=== PATIENT | female | born 2000 | race Caucasian/White ===

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

== ENCOUNTER 2022-01-31 03:38 | Outpatient (CLI) | payer MEDICAID, SELFPAY ==
[2022-01-31 12:57] LABS: TSH (W/Ref FT4) 1.28 uIU/mL (0.52-4.13)
[2022-01-31 18:10] LABS: FSH 5.5 mIU/mL (See Note); Prolactin 7.9 ng/mL (See Note)
[2022-02-02 09:47] LABS: DHEA Sulfate 174 ug/dL (61-494)
== END 2022-01-31 03:39 | disposition home or self-care (01) ==
LOC: LBO 03:38
PROVIDERS: PCP Nurse Practitioner Family; Visit Provider Nurse Practitioner Women's Health
DX: N91.2 Amenorrhea, unspecified (principal)
CPT/HCPCS: 36415; 82627; 83001; 84146; 84443

== ENCOUNTER 2022-02-15 03:27 | Outpatient (CLI) | payer MEDICAID, SELFPAY ==
[2022-02-15 16:40] LABS: HCG Quant, Pregnancy < 1 mIU/mL (1-3)
== END 2022-02-15 03:28 | disposition home or self-care (01) ==
LOC: LBO 03:28
PROVIDERS: PCP Nurse Practitioner Family; Visit Provider Nurse Practitioner Women's Health
DX: N91.2 Amenorrhea, unspecified (principal)
CPT/HCPCS: 36415; 84702

== ENCOUNTER 2022-03-15 17:45 | Emergency (ER) | payer MEDICAID, SELFPAY ==
[2022-03-15 17:48] VITALS: PULSE 89; RESP 18; TEMP 37; O2SAT 98
--- NOTE | 2022-03-15 19:16 | ED.GENADUL_ITS ---
Discharge Plan Disposition Patient Disposition: Home Condition: Stable Discharge Details Clinical Impression: Symptoms of upper respiratory infection (URI) Primary Care Provider: Sobia Franklin ED Provider: Telma Toney Home Meds and New Rx's Prescriptions: Continued triamcinolone acetonide 0.5 % cream 1 applic topical BID Qty: 15 0RF Discharge Instructions Additional Instructions: You may give a dose of Decadron, this will help your symptoms Take ibuprofen and Tylenol for pain control This is likely viral in nature and will resolve on its own Your flu and COVID swab are negative Return earlier should you have new or worsening complaints, symptoms lasting longer than 48 hours, recommend recheck with your primary care physician Stand Alone Forms: Work Release Discharge Data Discharge Date/Time-TO BE ENTERED AT DEPARTURE: 03/15/22 19:33 Medical Decision Making Patient appears well, vital stable Rapid COVID and flu negative Work note supplied Single dose of steroid for symptom control Return precautions reviewed and patient expressed understanding Medical Records Medical records reviewed: Yes I reviewed the patient's medical records. Lab Data Lab results reviewed: Yes I reviewed the patient's lab results. Sign Out No HPI General Date/Time Provider Initiated Documentation: 03/15/22 17:50 . HPI Narrative: Patient with sore throat and runny nose which started this morning. She denies any fever but has had chills. Denies any chance of . Denies difficulty swallowing, only painful swallowing. Denies any globus sensation. Denies any chest pain or shortness of breath. Denies any rashes or lesions. Denies any additional complaints at this time. Denies stiff neck or headache. Related Data Home Medications Medication Instructions Recorded Confirmed triamcinolone acetonide 0.5 % 1 applic topical BID #15 grams 09/23/21 01/26/22 topical cream Previous Rx's Medication Instructions Recorded triamcinolone acetonide 0.5 % 1 applic topical BID #15 grams 09/23/21 topical cream Allergies Allergy/AdvReac Type Severity Reaction Status Date / Time morphine Allergy Unknown Verified 01/26/22 15:21 red (food color) Allergy Unknown Skin Rash Unverified 01/26/22 15:21 General Stated Complaint: Sorethroat NAVEEN: 4 Review of Systems All systems reviewed & are unremarkable except as noted in HPI and below PFSH All Active Problems (Updated 03/15/22 @ 19:18 by XIOMY Land) Symptoms of upper respiratory infection (URI) (Acute) Bilateral bunions (Chronic 05/24/17) Evaluateed by podiatry. Trial of inserts and f/u if pain persists. No longer wears inserts as of 07/2017. 07/25/18 Irregular menses (Chronic 09/23/14) Pediatric body mass index (BMI) of 5th percentile to less than 85th percentile for age (Chronic 02/01/17) Depression (Chronic) Contraception (Acute) Hallux valgus (acquired), left foot (Chronic) S/P Eulalio osteotomy: 12/30/2019 Menometrorrhagia (Acute) Left lower quadrant pain (Acute) Surgical History Hx of wisdom tooth extraction S/P laparoscopy Operative laparoscopy with left ovarian cystotomy Family History Mother Mental disorder Depression Father No problems noted. Grandparent No problems noted. Sibling Mental disorder Depression and anxiety Asthma Social History Smoking/Tobacco Use Status: Current-Occasional Tobacco Type: e-cigarettes Second Hand Exposure: No Smoking risk assessment performed?: Yes Alcohol Intake: never Details: Smokes Bautista has been since Apr, is a stress/suicidal thought reliever Drug use: Never Substance use type: does not use Adopted: No Foster care: No Education Level: high school Details: [employer]th [employer] Pets and animals: Yes Pets and animals: dog(s) Current gender identity: female What type of physical activity do you participate in: other Seatbelt use: always Helmet use: Yes Fire extinguisher in home: Yes Carbon monox detector in home: Yes Firearms in home: No Do you feel safe at home: Yes Do you feel safe in your relationship?: Yes Female Reproductive History Menstrual control method: none History History 0 Para Hx # Term Pregnancies Multiple births Hx # Pregnancies Ectopic pregnancies AB induced Hx Number of Living Children AB spontaneous Exam Const General: cooperative, comfortable and no acute distress HENMT Other: Uvula midline, oropharynx patent, slight erythema to posterior oropharynx, no obvious abscess Eyes Sclera: sclerae normal Neck Other: No stridor or difficulty swallowing Resp Effort & Inspection: normal respiratory effort Cardio Rate: regular rate GI Inspection: normal to inspection Skin General skin exam: no rashes or lesions noted Neuro General: patient alert and patient oriented x3 Course Vital Signs Vital signs: Vital Signs Temperature 37.0 C 03/15/22 17:48 Pulse 89 03/15/22 17:48 Respiratory Rate 18 03/15/22 17:48 Pulse Oximetry 98 03/15/22 17:48 Temperature 37.0 C 03/15/22 17:48 Temperature Source Tympanic 03/15/22 17:48 Pulse 89 03/15/22 17:48 Respiratory Rate 18 03/15/22 17:48 Respiratory Effort 03/15/22 17:51 Pulse Oximetry 98 03/15/22 17:48 Oxygen Delivery Method Room Air 03/15/22 17:48 Oxygen Flow Rate 0 03/15/22 17:48 Pain Level 5 03/15/22 17:48
[2022-03-15] MEDS: Dexamethasone 4 MG TAB PO (19:31)
== END 2022-03-15 19:33 | disposition home or self-care (01) ==
PROVIDERS: Emergency Provider Physician Assistant; PCP Nurse Practitioner Family
DX: J06.9 Acute upper respiratory infection, unspecified (principal)
CPT/HCPCS: 99283; J8540

== ENCOUNTER 2022-06-26 19:00 | Emergency (ER) | payer MEDICAID, SELFPAY ==
[2022-06-26 19:03] VITALS: BP 129/91; PULSE 98; RESP 18; TEMP 37.1; O2SAT 96
--- NOTE | 2022-06-26 19:36 | ED.GENADUL_ITS ---
Discharge Plan Disposition Patient Disposition: Home Discharge Details Clinical Impression: Left knee pain Primary Care Provider: Sobia Franklin ED Provider: Telma Toney Home Meds and New Rx's Prescriptions: Continued triamcinolone acetonide 0.5 % cream 1 applic topical BID Qty: 15 0RF Discharge Instructions Instructions: Knee Pain (ED) Additional Instructions: Maxime wrap for compression, you may also purchase an [id number] compressive knee brace Crutches with ambulation for the next several days to allow your knee time to heal Ibuprofen 600 mg every 8 hours with food Take Tylenol as needed for breakthrough pain Follow-up with primary care physician in the next 1 to 2 weeks for reassessment and return earlier should you have new or worsening complaints Stand Alone Forms: Work Release Medical Decision Making Patient presents with left knee pain, x-ray does not show evidence of acute abnormality per radiology interpretation and my review Given an Maxime wrap and crutches Return precautions reviewed and patient expressed understanding, neurovascularly intact, no tenderness to ankle or calf, no visible signs of trauma Medical Records Medical records reviewed: Yes I reviewed the patient's medical records. HPI General Date/Time Provider Initiated Documentation: 06/26/22 19:00 . HPI Narrative: This 22-year-old female presents with report of left knee pain. She had onset of left knee pain approximately week ago and her sister was doing a burnout yesterday and she accidentally hit her knee on the dashboard. She denies any additional injuries. Denies chance of . Is able to ambulate with discomfort per patient. Related Data Home Medications Medication Instructions Recorded Confirmed triamcinolone acetonide 0.5 % 1 applic topical BID #15 grams 09/23/21 01/26/22 topical cream Previous Rx's Medication Instructions Recorded triamcinolone acetonide 0.5 % 1 applic topical BID #15 grams 09/23/21 topical cream Allergies Allergy/AdvReac Type Severity Reaction Status Date / Time morphine Allergy Unknown Verified 01/26/22 15:21 red (food color) Allergy Unknown Skin Rash Unverified 01/26/22 15:21 General Stated Complaint: Orthopedic NAVEEN: 4 PFSH All Active Problems (Updated 06/26/22 @ 20:09 by XIOMY Land) Left knee pain (Acute) Bilateral bunions (Chronic 05/24/17) Evaluateed by podiatry. Trial of inserts and f/u if pain persists. No longer wears inserts as of 07/2017. 07/25/18 Irregular menses (Chronic 09/23/14) Pediatric body mass index (BMI) of 5th percentile to less than 85th percentile for age (Chronic 02/01/17) Depression (Chronic) Contraception (Acute) Hallux valgus (acquired), left foot (Chronic) S/P Eulalio osteotomy: 12/30/2019 Menometrorrhagia (Acute) Left lower quadrant pain (Acute) Surgical History Hx of wisdom tooth extraction S/P laparoscopy Operative laparoscopy with left ovarian cystotomy Family History Mother Mental disorder Depression Father No problems noted. Grandparent No problems noted. Sibling Mental disorder Depression and anxiety Asthma Social History Smoking/Tobacco Use Status: Current-Occasional Tobacco Type: e-cigarettes Second Hand Exposure: No Smoking risk assessment performed?: Yes Alcohol Intake: never Details: Smokejacques Baum has been since Apr, is a stress/suicidal thought reliever Drug use: Never Substance use type: does not use Adopted: No Foster care: No Education Level: high school Details: 10th grade, [employer] Pets and animals: Yes Pets and animals: dog(s) Current gender identity: female What type of physical activity do you participate in: other Seatbelt use: always Helmet use: Yes Fire extinguisher in home: Yes Carbon monox detector in home: Yes Firearms in home: No Do you feel safe at home: Yes Do you feel safe in your relationship?: Yes Female Reproductive History Menstrual control method: none History History 0 Para Hx # Term Pregnancies Multiple births Hx # Pregnancies Ectopic pregnancies AB induced Hx Number of Living Children AB spontaneous Exam Const General: cooperative, comfortable and no acute distress Extrem Other: Left knee with tenderness, no swelling, range of motion intact Course Vital Signs Vital signs: Vital Signs Temperature 37.1 C 06/26/22 19:03 Pulse 98 H 06/26/22 19:03 Respiratory Rate 18 06/26/22 19:03 Blood Pressure 129/91 H 06/26/22 19:03 Pulse Oximetry 96 06/26/22 19:03 Temperature 37.1 C 06/26/22 19:03 Temperature Source Oral 06/26/22 19:03 Pulse 98 H 06/26/22 19:03 Respiratory Rate 18 06/26/22 19:03 Blood Pressure 129/91 H 06/26/22 19:03 Blood Pressure Position Sitting 06/26/22 19:03 Pulse Oximetry 96 06/26/22 19:03 Oxygen Delivery Method Room Air 06/26/22 19:03 Oxygen Flow Rate 0 06/26/22 19:03 Pain Level 6 06/26/22 19:03
--- NOTE | 2022-06-26 19:50 | DI.RAD_ITS ---
Exam(s) XR KNEE LT 3V AP,LAT,DARIO EXAM: XR KNEE LT 3V AP,LAT,DARIO CLINICAL HISTORY: left knee injury, diffuse pain. TECHNIQUE: 2D digital imaging was performed of the left knee. Three images were obtained. AP, late ral and PA tunnel views were obtained. COMPARISON: No exams were available for comparison FINDINGS: BONES: No acute fracture is present. No bony destructive lesion is seen. JOINTS: The knee is normally aligned. No joint effusion is seen. SOFT TISSUE: Normal. IMPRESSION: Normal radiographs of the left knee. DATA REPOSITORY: RADIATION DOSE DELIVERED:
--- NOTE | 2022-06-26 20:16 | DI.VRAD_ITS ---
PROCEDURE INFORMATION: Exam: XR Left Knee Exam date and time: 06/26/2022 7:48 PM Age: 22 years old Clinical indication: Patient HX: Diffuse left knee pain TECHNIQUE: Imaging protocol: Radiologic exam of the left knee. Views: 3 views. COMPARISON: CR XR FOOT LT COMPLETE 02/11/2020 9:46 AM FINDINGS: Bones/joints: Bone island in the proximal tibia. No acute fracture or dislocation Soft tissues: Normal. IMPRESSION: No acute findings. Dictated and Authenticated by: Mauro Marcano MD. Ordering:CLEMENTINA Hollis MD
--- NOTE | 2022-06-26 20:19 | NUR.NOTE ---
Referral to Care Management to establish PCP routinely.Nursing Note:
[2022-06-26 20:20] VITALS: PULSE 85; RESP 18; O2SAT 96
== END 2022-06-26 20:20 | disposition home or self-care (01) ==
PROVIDERS: Emergency Provider Physician Assistant; PCP Nurse Practitioner Family
DX: M25.562 Pain in left knee (principal); G89.11 Acute pain due to trauma; W22.03XA Walked into furniture, initial encounter
CPT/HCPCS: 73562; 99283

== ENCOUNTER 2022-07-05 17:41 | Outpatient (REF) | payer MEDICAID, SELFPAY ==
[2022-07-07 00:01] LABS: COVID-19 RT-PCR UVMMC Result Negative (Negative)
== END 2022-07-05 17:42 | disposition home or self-care (01) ==
LOC: LBN 17:41
PROVIDERS: PCP Nurse Practitioner Family; Visit Provider Nurse Practitioner Family
DX: J02.9 Acute pharyngitis, unspecified (principal); Z20.822 Contact with and (suspected) exposure to COVID-19
CPT/HCPCS: U0003; 87081

== ENCOUNTER 2022-07-12 20:03 | Emergency (ER) | payer MEDICAID, SELFPAY ==
[2022-07-12 20:09] VITALS: BP 125/82; PULSE 93; TEMP 37.1; O2SAT 99
--- NOTE | 2022-07-12 20:24 | W.ED.GENAD ---
Discharge Plan Disposition Patient Disposition: Home Condition: Stable Discharge Details Clinical Impression: Sinusitis, Upper respiratory infection with cough and congestion Primary Care Provider: Sobia Franklin ED Provider: Cheri Aguilar Home Meds and New Rx's Prescriptions: New amoxicillin-pot clavulanate 875-125 mg tablet 1 tab PO BID 10 Days Qty: 20 0RF Continued triamcinolone acetonide 0.5 % cream 1 applic topical BID Qty: 15 0RF Discharge Instructions Instructions: Sinusitis (ED), Upper Respiratory Infection (ED) Additional Instructions: Your rapid strep, COVID, influenza and RSV tests today are negative. Your symptoms still may be due to a viral illness but considering the long duration of your symptoms and your continued vaping, you may have progressed to a bacterial sinus infection. A prescription for the antibiotic Augmentin has been sent electronically to your pharmacy to take as directed until finished. Drink plenty of fluids and get plenty of rest. Alternate tylenol and motrin as needed and directed for pain. Follow-up with your primary care doctor in 1 week. Return to the emergency department with any worsening or new concerning symptoms. Stand Alone Forms: Work Release Discharge Data Discharge Date/Time-TO BE ENTERED AT DEPARTURE: 07/12/22 21:56 Discharge Physician: Cheri Aguilar Medical Decision Making 2014 -- 22-year-old female with a history of depression presents for 10 days of nasal congestion, rhinorrhea, sore throat, cough with green sputum with report of fever today at 102. Denies shortness of breath. Vitals within normal limits. Patient appears slightly uncomfortable but nontoxic. TMs are dull and erythematous bilaterally with no otic discharge. Posterior oropharynx erythematous with faint white exudates but no peritonsillar abscess. No sinus tenderness. She has scattered inspiratory wheezing. As her oxygen saturation is 100% with normal respiratory rate and no complaint of shortness of breath, do not see an indication for neb treatment or chest x-ray at this time. Differential diagnosis includes viral URI with cough, influenza, COVID, RSV or less likely strep throat. We will obtain a rapid strep, FLUVID, urine test and give a dose of ibuprofen and Tylenol and reassess. Patient states she would like to wait for results. Urine test negative. 0 --rapid strep negative. FLUVID negative. In the setting of 10 days of symptoms with fever, nasal congestion and productive cough, will cover with antibiotics for possible sinus infection. She was given 1 dose of Augmentin here, 2 tabs to go and a prescription sent electronically to her pharmacy. Advised on the importance of fluids, rest and alternating Tylenol and Motrin. Advised to follow up with the primary care doctor for re-evaluation. Usual and customary return precautions given prior to discharge. Medical Records Medical records reviewed: Yes I reviewed the patient's medical records. Lab Data Lab results reviewed: Yes I reviewed the patient's lab results. Labs: Laboratory Tests Range/Units 07/12/22 20:20 COVID-19 Source Nasopharynx SARS-CoV-2 (PCR) (Negative) Negative Influenza Type A (PCR) (Negative) Negative Influenza Type B (PCR) (Negative) Negative RSV (PCR) (Negative) Negative HPI General Mode of arrival: ambulatory. Date/Time Provider Initiated Documentation: 07/12/22 20:14. Limitations to Documentation: no limitations. Information obtained by: patient. HPI Narrative: Patient is a 22-year-old female with history of depression who presents for 10 days of runny nose, nasal congestion, sore throat, cough with green sputum, headache, fever and chills. Patient states she was taking Motrin and Tylenol last week but states it was not helping so stopped taking it. Patient has also taken NyQuil without any relief. She states all the symptoms are bothering her and cannot pinpoint one symptom the most. She states she had a fever today of 102 and did not take any medication for it. She denies any chest pain, shortness of breath, abdominal pain, vomiting or diarrhea. She states she was seen at the urgent care last week for symptoms and had a negative flu, COVID and strep test. Related Data Home Medications Medication Instructions Recorded Confirmed triamcinolone acetonide 0.5 % 1 applic topical BID #15 grams 09/23/21 01/26/22 topical cream amoxicillin 875 mg-potassium 1 tab PO BID 10 days #20 tabs 07/12/22 clavulanate 125 mg tablet Previous Rx's Medication Instructions Recorded triamcinolone acetonide 0.5 % 1 applic topical BID #15 grams 09/23/21 topical cream amoxicillin 875 mg-potassium 1 tab PO BID 10 days #20 tabs 07/12/22 clavulanate 125 mg tablet Allergies Allergy/AdvReac Type Severity Reaction Status Date / Time morphine Allergy Unknown Verified 01/26/22 15:21 red (food color) Allergy Unknown Skin Rash Unverified 01/26/22 15:21 General Stated Complaint: RespSymp NAVENE: 3 Review of Systems All systems reviewed & are unremarkable except as noted in HPI and below Constitutional Constitutional: Reports as per HPI, Reports chills, Reports fever(s) and Reports headache(s) Eyes Eyes: Denies blurry vision ENT Ears, Nose, Mouth, and Throat: Denies dizziness, Reports headache(s), Reports nasal congestion, Reports nasal discharge, Reports sore throat and Denies throat swelling Cardiovascular Cardiovascular: Denies chest pain and Denies dyspnea Respiratory Respiratory: Reports cough and Denies dyspnea Gastrointestinal Gastrointestinal: Denies abdominal pain, Denies diarrhea and Denies vomiting Genitourinary Genitourinary: Denies hematuria and Denies dysuria Musculoskeletal Musculoskeletal: Denies back pain and Denies numbness Integumentary/Breasts Skin/Breast: Denies lesions and Denies rash Neurologic Neurologic: Denies dizziness, Reports headache(s), Denies localized weakness and Denies numbness Allergic/Immunologic Allergic/Immunologic: Denies throat swelling PFSH All Active Problems (Updated 07/12/22 @ 21:30 by Cheri Aguilar DO) Sinusitis (Acute) Upper respiratory infection with cough and congestion (Acute) Left knee pain (Acute) Bilateral bunions (Chronic 05/24/17) Evaluateed by podiatry. Trial of inserts and f/u if pain persists. No longer wears inserts as of 07/2017. 07/25/18 Irregular menses (Chronic 09/23/14) Pediatric body mass index (BMI) of 5th percentile to less than 85th percentile for age (Chronic 02/01/17) Contraception (Acute) Hallux valgus (acquired), left foot (Chronic) S/P Eulalio osteotomy: 12/30/2019 Menometrorrhagia (Acute) Left lower quadrant pain (Acute) Medical History (Updated 07/12/22 @ 21:30 by Cheri Aguilar DO) Depression Surgical History (Updated 07/12/22 @ 20:27 by Cheri Aguilar DO) History of bunionectomy Hx of wisdom tooth extraction S/P laparoscopy Operative laparoscopy with left ovarian cystotomy Family History Mother Mental disorder Depression Father No problems noted. Grandparent No problems noted. Sibling Mental disorder Depression and anxiety Asthma Social History Smoking/Tobacco Use Status: Current-Occasional Tobacco Type: e-cigarettes Second Hand Exposure: No Smoking risk assessment performed?: Yes Alcohol Intake: never Details: Smokejacques Baum has been since Apr, is a stress/suicidal thought reliever Drug use: Never Substance use type: does not use Adopted: No Foster care: No Education Level: high school Details: 10th grade, [employer] Pets and animals: Yes Pets and animals: dog(s) Current gender identity: female What type of physical activity do you participate in: other Seatbelt use: always Helmet use: Yes Fire extinguisher in home: Yes Carbon monox detector in home: Yes Firearms in home: No Do you feel safe at home: Yes Do you feel safe in your relationship?: Yes Female Reproductive History Menstrual control method: none History History 0 Para Hx # Term Pregnancies Multiple births Hx # Pregnancies Ectopic pregnancies AB induced Hx Number of Living Children AB spontaneous Exam Const General: cooperative and no acute distress Orientation: alert, awake and oriented x3 HENMT Head: normal to inspection Ears: hearing grossly normal bilaterally, external ears normal and TM abnormal dull bilaterally and erythematous bilaterally General nose exam: external nose normal Face and sinus: normal facial exam and no sinus tenderness Mouth: oral mucosae normal Throat: uvula midline, no peritonsillar masses and posterior oropharynx abnormal erythema and exudates (faint white) Eyes General: appearance normal, both eyes and all related structures Pupils: PERRL EOM: EOM intact bilaterally Neck Neck: normal visual inspection and No submandibular swelling Lymphatic: no lymphadenopathy noted Chest Chest: normal inspection of the chest and no tenderness Resp Effort & Inspection: normal respiratory effort and able to speak in complete sentences Auscultation: wheezes scattered wheezes Cardio Rate: regular rate Rhythm: regular rhythm GI Inspection: normal to inspection Palpation: soft, not firm, not rigid and nontender Auscultation: hypoactive bowel sounds Back/Spine/Pelvis Thoracic/Lumbar Spine: thoracic and lumbar spine normal to inspection Pelvis: no pain with anterior-posterior compression Skin General skin exam: no rashes or lesions noted Neuro General: patient alert, patient awake and patient oriented x3 Cognition: normal cognition Speech: speech normal Motor: muscle tone normal throughout Sensory Exam: no sensory deficits noted Extrem General: normal to inspection, full ROM, capillary refill normal, no calf tenderness bilaterally and no edema Psych Appearance: grossly normal Mental Status: mental status grossly normal Speech and Movement: speech and movement normal Affect: normal affect Course Vital Signs Vital signs: Vital Signs Temperature 98.7 F 07/12/22 20:09 Pulse 93 H 07/12/22 20:09 Blood Pressure 125/82 07/12/22 20:09 Pulse Oximetry 99 07/12/22 20:09 Temperature 98.7 F 07/12/22 20:09 Temperature Source Oral 07/12/22 20:09 Pulse 93 H 07/12/22 20:09 Respiratory Effort Normal, Non-Labored 07/12/22 20:14 Blood Pressure 125/82 07/12/22 20:09 Pulse Oximetry 99 07/12/22 20:09 Oxygen Delivery Method Room Air 07/12/22 20:09 Oxygen Flow Rate 0 07/12/22 20:09 Pain Level 0 07/12/22 20:09 Comment patient denies SOB or chest pressure 07/12/22 20:09
[2022-07-12] MEDS: Ibuprofen 600 MG TAB PO (20:32)
[2022-07-12] MEDS: Acetaminophen 500 MG TAB 1000 MG PO (20:32)
[2022-07-12 21:16] LABS: COVID-19 PCR Negative (Negative); Influenza A PCR Negative (Negative); Influenza B PCR Negative (Negative); RSV PCR Negative (Negative)
[2022-07-12 21:17] LABS: Source Nasopharynx
[2022-07-12] MEDS: Amoxicillin 875/Clav. 125 TAB PO (21:51)
== END 2022-07-12 21:56 | disposition home or self-care (01) ==
PROVIDERS: Emergency Provider Physician Assistant; PCP Nurse Practitioner Family
DX: J32.9 Chronic sinusitis, unspecified (principal); J06.9 Acute upper respiratory infection, unspecified; F17.290 Nicotine dependence, other tobacco product, uncomplicated; Z20.822 Contact with and (suspected) exposure to COVID-19
CPT/HCPCS: 81025; 87637; 87880; 99283; 99284

== ENCOUNTER 2022-11-09 19:40 | Emergency (ER) | payer MEDICAID, SELFPAY ==
[2022-11-09 19:42] VITALS: BP 122/84; PULSE 87; RESP 15; TEMP 36.6; O2SAT 98
--- NOTE | 2022-11-09 22:14 | ED.GENADUL_ITS ---
Discharge Plan Disposition Patient Disposition: Home Condition: Stable Discharge Details Clinical Impression: Burn of second degree of lip(s), initial encounter Primary Care Provider: None,None ED Provider: Renee Jimenez Home Meds and New Rx's Prescriptions: No Action ondansetron 4 mg tablet,disintegrating 4 mg PO Q8H PRN PRN (Reason: nausea and vomiting) Qty: 8 0RF Patient Comments: finished this med. triamcinolone acetonide 0.5 % cream 1 applic topical BID Qty: 15 0RF Patient Comments: Finished this med. Discharge Instructions Instructions: Lidocaine (On the skin), Second-Degree Burn (ED) Additional Instructions: Please wear sunscreen or Chapstick with sunscreen in it. Apply bacitracin once a day and lidocaine once a day as needed. The blisters may start to drain. Do not try to pop the blisters. Keep clean and dry. Please be seen sooner by her PCP if any blisters develop anywhere else. Please take Tylenol or Ibuprofen with food every 4-6 hours as needed for pain and swelling. Follow up with primary care provider in 3-5 days. Return to ED sooner if any worsening or concerns. Increase oral fluids. Stand Alone Forms: Work Release Medical Decision Making 22-year-old female presents to the ER with a chief complaint of blisters to her upper and lower lips which began approximately 4 days ago after getting a sunburn. She does complain of pain. She has no blisters or swelling intraorally. She is speaking in full sentences no other associated symptoms or complaints no other rash or lesions anywhere else. Findings are consistent with second-degree burn to the upper and lower lips. No drainage noted. 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 She verbalized understanding. We will place bacitracin on to her lips. I did instruct her to also put some Orajel on, after sun care and stay out of the sun for the next few days. This text was generated using [employer] system, please disregard any oddities of phrase or misspellings. HPI General Mode of arrival: ambulatory . Date/Time Provider Initiated Documentation: 11/09/22 20:00 . Limitations to Documentation: no limitations . Information obtained by: patient, RN notes reviewed and old records reviewed . Related Data Home Medications Medication Instructions Recorded Confirmed triamcinolone acetonide 0.5 % 1 applic topical BID #15 grams 09/23/21 11/09/22 topical cream ondansetron 4 mg disintegrating 4 mg PO Q8H PRN PRN nausea and 07/13/22 11/09/22 tablet vomiting #8 tabs Previous Rx's Medication Instructions Recorded triamcinolone acetonide 0.5 % 1 applic topical BID #15 grams 09/23/21 topical cream ondansetron 4 mg disintegrating 4 mg PO Q8H PRN PRN nausea and 07/13/22 tablet vomiting #8 tabs Allergies Allergy/AdvReac Type Severity Reaction Status Date / Time morphine Allergy Unknown Verified 11/09/22 19:46 red (food color) Allergy Unknown Skin Rash Unverified 11/09/22 19:46 General Stated Complaint: RashLesion NAVEEN: 4 Review of Systems All systems reviewed & are unremarkable except as noted in HPI and below Constitutional Constitutional: Denies headache(s) ENT Ears, Nose, Mouth, and Throat: Denies headache(s), Denies mouth lesions, Denies nasal congestion, Denies nasal discharge, Denies nose pain, Denies sore throat, Denies throat swelling and Denies tongue swelling Integumentary/Breasts Skin/Breast: Reports as per HPI, Denies new lesions (None to feet hands or genitals), Reports skin pain, Reports skin swelling and Reports sores (Blisters upper vermilion border of lip and lower lip.) Neurologic Neurologic: Denies headache(s) Allergic/Immunologic Allergic/Immunologic: Denies throat swelling and Denies tongue swelling PFSH All Active Problems (Updated 11/09/22 @ 22:17 by Renee Jimenez NP) Burn of second degree of lip(s), initial encounter (Acute) Bilateral bunions (Chronic 05/24/17) Evaluateed by podiatry. Trial of inserts and f/u if pain persists. No longer wears inserts as of 07/2017. 07/25/18 Irregular menses (Chronic 09/23/14) Pediatric body mass index (BMI) of 5th percentile to less than 85th percentile for age (Chronic 02/01/17) Contraception (Acute) Hallux valgus (acquired), left foot (Chronic) S/P Eulalio osteotomy: 12/30/2019 Menometrorrhagia (Acute) Left lower quadrant pain (Acute) Medical History (Updated 11/09/22 @ 22:17 by Renee Jimenez NP) Depression Surgical History (Updated 07/12/22 @ 20:27 by Cheri Aguilar DO) History of bunionectomy Hx of wisdom tooth extraction S/P laparoscopy Operative laparoscopy with left ovarian cystotomy Family History Mother Mental disorder Depression Father No problems noted. Grandparent No problems noted. Sibling Mental disorder Depression and anxiety Asthma Social History Smoking/Tobacco Use Status: Current-Occasional Tobacco Type: e-cigarettes Second Hand Exposure: No Smoking risk assessment performed?: Yes Alcohol Intake: never Details: Smokejacques Baum has been since Apr, is a stress/suicidal thought reliever Drug use: Never Substance use type: does not use Adopted: No Foster care: No Education Level: high school Details: 10th grade, [employer] Pets and animals: Yes Pets and animals: dog(s) Current gender identity: female What type of physical activity do you participate in: other Seatbelt use: always Helmet use: Yes Fire extinguisher in home: Yes Carbon monox detector in home: Yes Firearms in home: No Do you feel safe at home: Yes Do you feel safe in your relationship?: Yes Female Reproductive History Menstrual control method: none History History 0 Para Hx # Term Pregnancies Multiple births Hx # Pregnancies Ectopic pregnancies AB induced Hx Number of Living Children AB spontaneous Exam HENMT Head: normocephalic and atraumatic General nose exam: external nose normal, nares normal and nasal mucous membranes and turbinates normal Nose image: 1. Multiple flesh-colored vesicles, surrounding erythema. Tender 2. 2 flesh-colored vesicles, surrounding erythema tender. Face and sinus: normal facial exam and erythema bilaterally (Cheeks) Mouth: no drooling, lip abnormal, No mouth trauma, no muffled voice and normal oral mucosae Teeth and gingiva: dentition normal and gingiva normal Throat: posterior oropharynx normal and tonsils normal Skin General skin exam: no rashes or lesions noted Lesions: no lesions Rashes: no rashes Course Vital Signs Vital signs: Vital Signs Temperature 36.6 C 11/09/22 19:42 Pulse 87 11/09/22 19:42 Respiratory Rate 15 11/09/22 19:42 Blood Pressure 122/84 11/09/22 19:42 Pulse Oximetry 98 11/09/22 19:42 Temperature 36.6 C 11/09/22 19:42 Temperature Source Oral 11/09/22 19:42 Pulse 87 11/09/22 19:42 Respiratory Rate 15 11/09/22 19:42 Blood Pressure 122/84 11/09/22 19:42 Blood Pressure Position Sitting 11/09/22 19:42 Pulse Oximetry 98 11/09/22 19:42 Oxygen Delivery Method Room Air 11/09/22 19:42 Oxygen Flow Rate 0 11/09/22 19:42 Pain Level 5 11/09/22 19:42
[2022-11-09] MEDS: Bacitracin 1 PACKET TP (22:24)
== END 2022-11-09 22:36 | disposition home or self-care (01) ==
PROVIDERS: Emergency Provider Registered Nurse Emergency
DX: L55.1 Sunburn of second degree (principal)
CPT/HCPCS: 99283

== ENCOUNTER 2022-11-15 13:46 | Outpatient (REF) | payer MEDICAID, SELFPAY ==
[2022-11-16 13:51] LABS: Chlamydia Result Negative (Negative); GC Result Negative (Negative)
== END 2022-11-15 13:47 | disposition home or self-care (01) ==
LOC: LBN 13:46
PROVIDERS: Visit Provider Nurse Practitioner Women's Health
DX: Z11.3 Encounter for screening for infections with a predominantly sexual mode of transmission (principal)
CPT/HCPCS: 87491; 87591

== ENCOUNTER 2022-12-07 18:40 | Outpatient (REF) | payer MEDICAID, SELFPAY ==
[2022-12-07 17:31] LABS: C Diff PCR Negative (Negative)
[2022-12-09 00:37] LABS: Campylobacter PCR Negative (Negative); Salmonella PCR Negative (Negative); Shiga Toxin PCR Negative (Negative); Shigella/Enteroinvasive Ecoli Negative (Negative)
== END 2022-12-07 18:41 | disposition home or self-care (01) ==
LOC: LBN 18:40
PROVIDERS: Visit Provider Physician Assistant Medical
DX: R19.7 Diarrhea, unspecified (principal)
CPT/HCPCS: 87329; 87493; 87505; 87177

== ENCOUNTER 2023-03-29 09:51 | Outpatient (REF) | payer MEDICAID, SELFPAY ==
[2023-03-30 12:42] LABS: Chlamydia Result Negative (Negative); GC Result Negative (Negative)
== END 2023-03-29 09:52 | disposition home or self-care (01) ==
LOC: LBN 09:51
PROVIDERS: Visit Provider Advanced Practice Midwife
DX: Z11.3 Encounter for screening for infections with a predominantly sexual mode of transmission (principal)
CPT/HCPCS: 87491; 87591

== ENCOUNTER 2023-05-31 18:03 | Outpatient (REF) | payer MEDICAID, SELFPAY ==
[2023-05-31 13:57] LABS: Source Nasal/Nares
[2023-05-31 14:30] LABS: COVID-19 PCR Negative (Negative)
--- OUTSIDE RECORDS SUMMARY | 2023-05-31 18:05 | XMS_ITS | Continuity of Care Document ---
Author Name Unknown Organization [facility] Address [address] [place] [address] Encounter [facility] FIN NBR [id number] Date(s): 07/03/22 - 07/03/22 [facility] [address] [place], [place] [address] Encounter Diagnosis Knee pain(Discharge Diagnosis) - 07/03/22 Discharge Disposition: Home or Self Care Attending Physician: Maria C Eldridge MD Admitting Physician: Maria C Eldridge MD Allergies, Adverse Reactions, Alerts Substance Reaction Severity Status morphine Anger Mild Active Red Dye Throat swelling Hives Severe Active Assessment and Plan Diagnostic Tests Pending * Babesia,HGE,HME,Lyme by PCR LC 07/03/22 Mental Status 07/03/22 Eye Opening Response Renetta Spontaneous ly Best Verbal Response [place] Oriented Best Motor Response Renetta Obeys comman ds Renetta Coma Score 15 Vital Signs Most recent to oldest [Reference Range]: 1 Temperature Temporal Artery [36-38 Deg C ] 36.9 Deg C (07/03/22 9:10 PM) Peripheral Pulse Rate [60-100 bpm] 70 bp m (07/03/22 9:10 PM) Blood Pressure [90-140/60-90 mmHg] 114/7 6mmHg (07/03/22 9:10 PM) Weight Dosing 64.41 kg (07/03/22 9:29 PM) Weight Estimated 64.41 kg (07/03/22 9:10 PM) Height/Length Dosing 165.560 cm (07/03/22 9:29 PM) Height/Length Estimated 165.560 cm (07/03/22 9:10 PM) Social History Social History Type Response Tobacco Never tobacco user T obacco Use:. Sex Hospital Discharge Instructions Patient Education 07/03/2022 20:46:38 Acute Knee Pain, Adult Acute Knee Pain, Adult Acute knee pain is sudden and may be caused by damage, swelling, or irritation of the muscles and tissues that support the knee. Pain may result from: ??? A fall. ??? An injury to the knee from twisting motions. ??? A hit to the knee. ??? Infection. Acute knee pain may go away on its own with time and rest. If it does not, your health care provider may order tests to find the cause of the pain. These may include: ??? Imaging tests, such as an X-ray, MRI, CT scan, or ultrasound. ??? Joint aspiration. In this test, fluid is removed from the knee and evaluated. ??? Arthroscopy. In this test, a lighted tube is inserted into the knee and an image is projected onto a TV screen. ??? Biopsy. In this test, a sample of tissue is removed from the body and studied under a microscope. Follow these instructions at home: If you have a knee sleeve or brace: ??? Wear the knee sleeve or brace as told by your health care provider. Remove it only as told by your health care provider. ??? Loosen it if your toes tingle, become numb, or turn cold and blue. ??? Keep it clean. ??? If the knee sleeve or brace is not waterproof: ??? Do not let it get wet. ??? Cover it with a watertight covering when you take a bath or shower. Activity ??? Rest your knee. ??? Do not do things that cause pain or make pain worse. ??? Avoid high-impact activities or exercises, such as running, jumping rope, or doing jumping jacks. ??? Work with a physical therapist to make a safe exercise program, as recommended by your health care provider. Do exercises as told by your physical therapist. Managing pain, stiffness, and swelling ??? If directed, put ice on the affected knee. To do this: ??? If you have a removable knee sleeve or brace, remove it as told by your health care provider. ??? Put ice in a plastic bag. ??? Place a towel between your skin and the bag. ??? Leave the ice on for 20 minutes, 2???3 times a day. ??? Remove the ice if your skin turns bright red. This is very important. If you cannot feel pain, heat, or cold, you have a greater risk of damage to the area. ??? If directed, use an elastic bandage to put pressure (compression) on your injured knee. This may control swelling, give support, and help with discomfort. ??? Raise (elevate) your knee above the level of your heart while you are sitting or lying down. ??? Sleep with a pillow under your knee. General instructions ??? Take lpyk-rqu-hizretf and prescription medicines only as told by your health care provider. ??? Do not use any products that contain nicotine or tobacco, such as cigarettes, e-cigarettes, andchewing tobacco. If you need help quitting, ask your health care provider. ??? If you are overweight, work with your health care provider and a dietitian to set a weight-lossgoal that is healthy and reasonable for you. Extra weight can put pressure on your knee. ??? Pay attention to any changes in your symptoms. ??? Keep all follow-up visits. This is important. Contact a health care provider if: ??? Your knee pain continues, changes, or gets worse. ??? You have a fever along with knee pain. ??? Your knee feels warm to the touch or is red. ??? Your knee parul or locks up. Get help right away if: ??? Your knee swells, and the swelling becomes worse. ??? You cannot move your knee. ??? You have severe pain in your knee that cannot be managed with pain medicine. Summary ??? Acute knee pain can be caused by a fall, an injury, an infection, or damage, swelling, or irritation of the tissues that support your knee. ??? Your health care provider may perform tests to find out the cause of the pain. ??? Pay attention to any changes in your symptoms. Relieve your pain with rest, medicines, light activity, and the use of ice. ??? Get help right away if your knee swells, you cannot move your knee, or you have severe pain that cannot be managed with medicine. This information is not intended to replace advice given to you by your health care provider. Make sure you discuss any questions you have with your health care provider. Document Revised: 09/16/2020 Document Reviewed: 09/16/2020 [employer] Patient Education ?? 2021 [employer]. Follow Up Care 07/03/2022 21:10:02 With:Kevin Moreno DO Address: [address] [place] [id number] When:1 week Physician Emergency department Note * Maria C Eldridge MD: PERFORM Event Display: ED Note Physician Authored Date: [id number] MILA BRYSON :2000 Age:22 years Sex:Female Visit Date:07/03/2022 Basic Information Time Seen: Maria C Eldridge MD / 07/03/2022 21:24 Chief Complaint Patient reports non-traumatic left knee pain x 3 weeks History Of Present Illness: This patient is a 22-year-old female??who presents today for??3 weeks of Left knee pain.?? Onset ofthe knee pain was atraumatic. ??She was seen at [facility]??and tells me that she had x-rays there whichwere negative. ??She was given a knee brace. ??Patient states she has had continued pain in the knee since that time and so comes in for reevaluation. ??She describes that the pain is??throughout theentire knee and radiates up towards the quadricep.?? There is no associated??physical activity withthis such as with an overuse injury.?? No fevers or chills. ??No redness.?? At one point she did have some swelling lower??in the??ankle??but this was quickly??resolving. Review of Systems: Review of systems as stated above. Physical Exam Vitals & Measurements T:??36.9?C ??(Temporal Artery)?? HR:??70??(Peripheral)?? BP:??114/76?? SpO2:??100%?? HT:??165.560??cm?? WT:??64.41??kg??(Estimated)?? Pain Score:??8?? O2 Therapy:??Aerosol mask?? GENERAL:??Well appearing in no acute distress SKIN:??No visible facial rash or cyanosis HENT:??Normocephalic, atraumatic PULMONARY:??The patient is speaking in full sentences. The breathing is nonlabored. They do not appear tachypneic or air hungry. NEUROLOGIC:??Normal speech. Oriented. PSYCHIATRIC:??Normal mood and affect Musculoskeletal:??On examination of the patient's left lower extremity??there is no significant swelling or deformity to the knee. ??No erythema. ??She has??full range of motion of the knee.?? There is no significant joint effusion appreciated. ??No open skin lesions.?? I did perform a bedside ultrasound and did not see any evidence of DVT in the popliteal or femoral??areas on the left leg.?? There is no significant edema to the leg. ??There is a 2+ dorsalis pedis pulse.?? Motor and sensory is intact distally. ??There is no tenderness or swelling to the ankle at this time. ??No calf tenderness.?? All compartments in the lower extremity are soft. ??Sensory is intact throughout.?? No increased warmth to touch??to the lower extremity.?? The patella is in good position.?? No joint instabilityof the knee. Medical Decision Making: Patient is a 22-year-old female presents today for evaluation of atraumatic??left knee pain for thelast 3 weeks. ??She was seen at another facility and had x-rays??so do not feel that these need to be repeated especially in light of the fact that this was not associated with any trauma or overuse.??The knee itself is benign appearing without any evidence of infection or deformity.?? The knee had no evidence of instability on physical exam.?? Where she is describing the pain being the entire knee including the popliteal area I think this would be less likely to be??patellofemoral syndrome??however that is still in the differential. ??Since her pain has been ongoing for 3 weeks I will have her follow-up with orthopedic surgery.?? I did order a tick panel??to evaluate for the possibility of Lyme considering that she had atraumatic joint pain.?? The patient was comfortable plan for discharge home.?? All of her questions were answered to her satisfaction. Procedure No Qualifying Data Assessment/Plan 1.??Knee pain??M25.569 Orders: Babesia,HGE,HME,Lyme by PCR LC, Blood, Stat, 07/03/22 21:43:00 EDT, Once, Nurse collect Patient Education Acute Knee Pain, Adult Follow Up With When Contact Information Kevin Moreno DO Within 1 week [address] [place] [address] Additional Instructions: Problem List/Past Medical History Ongoing No qualifying data Historical No qualifying data Allergies Red Dye??(Throat swelling, Hives) morphine??(Anger) Social History Electronic Cigarette/Vaping Electronic Cigarette Use: Use, within last 90 days. Tobacco Never tobacco user Tobacco Use:. Electronically Signed on 07/03/22 09:47 PM Maria C Eldridge MD Emergency department Discharge instructions * Maria C Eldridge MD: PERFORM Event Display: ED Discharge Information Authored Date: [id number] MILA BRYSON :2000 Age:22 years Sex:Female Visit Date:07/03/2022 Discharge Instructions We would like to thank you for allowing us to assist you with your healthcare needs. The following includes patient education materials and information regarding your injury/illness. Diagnosis from Today's Visit Knee pain Discharge Vitals Temperature??(Temporal Artery) 98.4 ??F (36.9 ??C) Heart Rate??(Peripheral) 70 Blood Pressure?? 114/76?? Height?? 65.18 in (165.560 cm) Weight??(Estimated) 142.02 lb (64.41 kg) Allergies Red Dye??(Throat swelling, Hives) morphine??(Anger) What to Do Next You Need to Schedule the Following Appointments Follow Up with??Kevin Moreno DO When:??Within 1 week Where: [address] [place] [address] You were treated today on an emergency basis; it may be hammonds to contact your primary care provider to notify them of your visit today. You may have been referred to your regular doctor or a specialist, please follow up as instructed. If your condition worsens or you can't get in to see the doctor, contact the Emergency Department. Education Materials Acute Knee Pain, Adult Acute knee pain is sudden and may be caused by damage, swelling, or irritation of the muscles and tissues that support the knee. Pain may result from: ? A fall. ? An injury to the knee from twisting motions. ? A hit to the knee. ? Infection. Acute knee pain may go away on its own with time and rest. If it does not, your health care provider may order tests to find the cause of the pain. These may include: ? Imaging tests, such as an X-ray, MRI, CT scan, or ultrasound. ? Joint aspiration. In this test, fluid is removed from the knee and evaluated. ? Arthroscopy. In this test, a lighted tube is inserted into the knee and an image is projected onto a TV screen. ? Biopsy. In this test, a sample of tissue is removed from the body and studied under a microscope. Follow these instructions at home: If you have a knee sleeve or brace: ? Wear the knee sleeve or brace as told by your health care provider. Remove it only as told by your health care provider. ? Loosen it if your toes tingle, become numb, or turn cold and blue. ? Keep it clean. ? If the knee sleeve or brace is not waterproof: ? Do not let it get wet. ? Cover it with a watertight covering when you take a bath or shower. Activity ? Rest your knee. ? Do not do things that cause pain or make pain worse. ? Avoid high-impact activities or exercises, such as running, jumping rope, or doing jumping jacks. ? Work with a physical therapist to make a safe exercise program, as recommended by your health care provider. Do exercises as told by your physical therapist. Managing pain, stiffness, and swelling ? If directed, put ice on the affected knee. To do this: ? If you have a removable knee sleeve or brace, remove it as told by your health care provider. ? Put ice in a plastic bag. ? Place a towel between your skin and the bag. ? Leave the ice on for 20 minutes, 2???3 times a day. ? Remove the ice if your skin turns bright red. This is very important. If you cannot feel pain, heat, or cold, you have a greater risk of damage to the area. ? If directed, use an elastic bandage to put pressure (compression) on your injured knee. This may control swelling, give support, and help with discomfort. ? Raise (elevate) your knee above the level of your heart while you are sitting or lying down. ? Sleep with a pillow under your knee. General instructions ? Take aikp-uld-gvenczc and prescription medicines only as told by your health care provider. ? Do not use any products that contain nicotine or tobacco, such as cigarettes, e- cigarettes, and chewing tobacco. If you need help quitting, ask your health care provider. ? If you are overweight, work with your health care provider and a dietitian to set a weight-loss goal that is healthy and reasonable for you. Extra weight can put pressure on your knee. ? Pay attention to any changes in your symptoms. ? Keep all follow-up visits. This is important. Contact a health care provider if: ? Your knee pain continues, changes, or gets worse. ? You have a fever along with knee pain. ? Your knee feels warm to the touch or is red. ? Your knee parul or locks up. Get help right away if: ? Your knee swells, and the swelling becomes worse. ? You cannot move your knee. ? You have severe pain in your knee that cannot be managed with pain medicine. Summary ? Acute knee pain can be caused by a fall, an injury, an infection, or damage, swelling, or irritation of the tissues that support your knee. ? Your health care provider may perform tests to find out the cause of the pain. ? Pay attention to any changes in your symptoms. Relieve your pain with rest, medicines, light activity, and the use of ice. ? Get help right away if your knee swells, you cannot move your knee, or you have severe pain that cannot be managed with medicine. This information is not intended to replace advice given to you by your health care provider. Make sure you discuss any questions you have with your health care provider. Document Revised: 09/16/2020 Document Reviewed: 09/16/2020 [employer] Patient Education ?? 2021 [employer] Patient/It Infrastructure Architect Signature Patient Name:BRYSON MILA Gutierrez I have received this information and my questions have been answered. Patient/It Infrastructure Architect Name: Patient/It Infrastructure Architect Signature: Relationship to Patient: Witness Name/Signature: Date: Electronically Signed on: 07/03/2022 21:47 EDTSigned by:AF Patient Care team information Care Team Personnel Name: Maria C Eldridge MD Position: Physician Member Role: Admitting Physician Address: Address: [address] [place] [address] Name: Brian Staton Position: Nurse Member Role: ED Nurse
== END 2023-05-31 18:04 | disposition home or self-care (01) ==
LOC: LBN 18:03
PROVIDERS: Referring Provider Nurse Practitioner Family; Visit Provider Nurse Practitioner Family
DX: J06.9 Acute upper respiratory infection, unspecified (principal); J02.9 Acute pharyngitis, unspecified; Z11.52 Encounter for screening for COVID-19
CPT/HCPCS: 87635; 87070

== ENCOUNTER 2023-07-20 16:09 | Outpatient (REF) | payer MEDICAID, SELFPAY | END 2023-07-20 16:10 | disposition home or self-care (01) | LOC: LBN 16:09 | PROVIDERS: Visit Provider Physician Assistant Medical | DX: J06.9 Acute upper respiratory infection, unspecified (principal) | CPT/HCPCS: 87070 ==

== ENCOUNTER 2023-09-03 19:55 | Emergency (ER) | payer MEDICAID, SELFPAY ==
[2023-09-03 19:58] VITALS: BP 127/80; PULSE 102; RESP 24; TEMP 37.2; O2SAT 99
[2023-09-03 20:01] VITALS: BP 127/80; PULSE 102; RESP 24; TEMP 37.2; O2SAT 99
[2023-09-03] MEDS: Dexamethasone 10 MG/ML VIAL PO (20:24)
[2023-09-03] MEDS: Ibuprofen 600 MG TAB PO (20:24)
--- NOTE | 2023-09-03 20:36 | W.ED.GENAD ---
Discharge Plan Disposition Patient Disposition: Home Condition: Stable Discharge Details Clinical Impression: Acute viral syndrome Primary Care Provider: None,None ED Provider: Telma Toney Home Meds and New Rx's Prescriptions: Continued Nexplanon 68 mg implant 1 implant subdermal ONCE Qty: 1 0RF Rx Instructions: as a single dose Discharge Instructions Instructions: Viral Syndrome (ED) Additional Instructions: Take Motrin and Tylenol as needed for fever and discomfort Ibuprofen 600 mg every 8 hours with food and Tylenol 650 every 4-6 hours Increase fluid hydration Return earlier should you have new or worsening complaints including shortness of breath, worsening difficulty swallowing, or should any new concerns arise Stand Alone Forms: Work Release Discharge Data Discharge Date/Time-TO BE ENTERED AT DEPARTURE: 09/03/23 21:07 HPI General Date/Time Provider Initiated Documentation: 09/03/23 20:01. HPI Narrative: 23-year-old female presents with report of sore throat and myalgias, fever, 101.3 prior to arrival. Did not take any antipyretics. Patient has not taken any medications today. Denies any chance of or known sick contacts. Denies any cough or shortness of breath. Denies any urinary symptoms. Related Data Home Medications Medication Instructions Recorded Confirmed etonogestrel 68 mg subdermal 1 implant subdermal ONCE #1 ea 03/29/23 04/03/23 implant (Nexplanon) Previous Rx's Medication Instructions Recorded etonogestrel 68 mg subdermal 1 implant subdermal ONCE #1 ea 03/29/23 implant (Nexplanon) Allergies Allergy/AdvReac Type Severity Reaction Status Date / Time morphine Allergy Unknown Verified 04/03/23 12:10 red (food color) Allergy Unknown Skin Rash Unverified 04/03/23 12:10 General Stated Complaint: Sorethroat ANVEEN: 4 Exam Narrative Exam Narrative: Alert and oriented, pupils equal round reactive to light and accommodation, no submandibular lymphadenopathy, oropharynx patent, uvula midline, no trismus, no visible abscess, maintaining secretions, lungs clear to auscultation bilaterally, cardiac rate rhythm regular no rashes or lesions, no meningismus Course Vital Signs Vital signs: Vital Signs Temperature 37.2 C 09/03/23 19:58 Pulse 102 H 09/03/23 19:58 Respiratory Rate 24 09/03/23 19:58 Blood Pressure 127/80 09/03/23 19:58 Pulse Oximetry 99 09/03/23 19:58 Temperature 37.2 C 09/03/23 20:01 Temperature Source Tympanic 09/03/23 20:01 Pulse 102 H 09/03/23 20:01 Respiratory Rate 24 09/03/23 20:01 Respiratory Effort Normal 09/03/23 20:01 Blood Pressure 127/80 09/03/23 20:01 Blood Pressure Position Sitting 09/03/23 20:01 Pulse Oximetry 99 09/03/23 20:01 Oxygen Delivery Method Room Air 09/03/23 20:01 Oxygen Flow Rate 0 09/03/23 20:01 Lab/Test Results Lab/Test Results: POC Strep Test-CHYNA(Rapid) Start: 09/03/23 20:02 Freq: .Rapid Strep Test Status: Active Protocol: Document 09/03/23 20:19 ROCKY (Rec: 09/03/23 20:19 ROCKY Desktop) Strep test-CHYNA(Rapid)-POC POC-Strep test-CHYNA (Rapid) Negative POC-Strep test-CHYNA (Rapid) Negative Medical Decision Making This 23-year-old female presents with report of sore throat, with subjective fevers. Exam is benign, no meningismus. Strep negative, flu, COVID, RSV negative. Patient in no acute distress with stable vitals, lungs are clear to auscultation and there is no hypoxia. Suspect viral syndrome. Patient encouraged to follow-up with primary care physician and take Tylenol and ibuprofen as needed for pain. Return precautions reviewed and patient expressed understanding Quality:SDOH Health Related Social Needs: No Data to Display PFSH All Active Problems (Updated 09/03/23 @ 20:38 by XIOMY Land) Acute viral syndrome (Acute) Chlamydia contact (Acute) Bilateral bunions (Chronic 05/24/17) Evaluateed by podiatry. Trial of inserts and f/u if pain persists. No longer wears inserts as of 07/2017. 07/25/18 Irregular menses (Chronic 09/23/14) Menometrorrhagia (Acute) Medical History On Depo-Provera for contraception Left lower quadrant pain Contraception Pediatric body mass index (BMI) of 5th percentile to less than 85th percentile for age (02/01/17) Depression Surgical History Hallux valgus (acquired), left foot S/P Eulalio osteotomy: 12/30/2019 History of bunionectomy S/P laparoscopy Operative laparoscopy with left ovarian cystotomy Hx of wisdom tooth extraction Family History Mother Mental disorder Depression Father No problems noted. Grandparent No problems noted. Sibling Mental disorder Depression and anxiety Asthma Social History Smoking/Tobacco Use Status: Current-Occasional Tobacco Type: e-cigarettes Second Hand Exposure: No Smoking risk assessment performed?: Yes Alcohol Intake: never Details: Smokejacques Baum has been since Apr, is a stress/suicidal thought reliever Drug use: Never Substance use type: does not use Adopted: No Foster care: No Education Level: high school Details: 10th grade, [employer] Pets and animals: Yes Pets and animals: dog(s) Current gender identity: female What type of physical activity do you participate in: other Seatbelt use: always Helmet use: Yes Fire extinguisher in home: Yes Carbon monox detector in home: Yes Firearms in home: No Do you feel safe at home: Yes Do you feel safe in your relationship?: Yes Female Reproductive History Menstrual control method: none History History 0 Para Hx # Term Pregnancies Multiple births Hx # Pregnancies Ectopic pregnancies AB induced Hx Number of Living Children AB spontaneous PAWSS Have you Been Recently Intoxicated or Drunk Within the Last 30 days?: No Have you Ever Experienced Previous Episodes of Alcohol Withdrawal?: No Have you ever Experienced Withdrawal Seizures?: No Have you ever Experienced Delirium Tremens(DT)s?: No Have you ever undergone Alcohol Rehabilitation Treatment (i.e, inpt ot outpatient treatment programs)?: No Have you ever Experienced Blackouts?: No Have you ever Combined Alcohol with other Downers within the last 90 days?: No Have you ever Combined Alcohol with any other Substance of Abuse during the last 90 days?: No Positive Blood Alcohol level on Presentation? [PCS.BAL]: No Evidence of Increased Autonomic Activity (i.e. HR>120, tremor, sweating, agitation, nausea)?: No Result: 0
[2023-09-03 20:50] LABS: COVID-19 PCR Negative (Negative); Influenza A PCR Negative (Negative); Influenza B PCR Negative (Negative); RSV PCR Negative (Negative)
[2023-09-03 20:53] LABS: Source Nasopharynx
[2023-09-03 21:06] VITALS: BP 120/78; PULSE 90; RESP 14; O2SAT 99
== END 2023-09-03 21:07 | disposition home or self-care (01) ==
PROVIDERS: Emergency Provider Physician Assistant
DX: B34.9 Viral infection, unspecified (principal); F17.290 Nicotine dependence, other tobacco product, uncomplicated
CPT/HCPCS: 87637; 87880; 99283; J1100

== ENCOUNTER 2023-09-18 18:32 | Emergency (ER) | payer MEDICAID, SELFPAY ==
[2023-09-18] VITALS (19 sets, daily range): BP systolic 106–123; BP diastolic 73–89; PULSE 78–104; RESP 14–32; TEMP 36.8; O2SAT 95–99
--- NOTE | 2023-09-18 18:30 | RT.EKG_ITS ---
APPROVED REPORT Exam: Resting ECG Reason for Exam: chest pain Patient Location: E HR:90 bpm ECG Measurements Heart Rate 90 AXIS DC 125 P 51 QRSd 72 QRS 39 QT 353 T 28 QTc 432 Conclusion Sinus rhythm...normal P axis, V-rate 60- 99
--- NOTE | 2023-09-18 19:00 | DI.RAD_ITS ---
Exam(s) XR CHEST 2V PA LATERAL EXAM: XR CHEST 2V PA LATERAL CLINICAL HISTORY: chest pain TECHNIQUE: 2D digital imaging was performed of the chest. Two images were obtained. PA and lateral views were obtained. COMPARISON: CR CHEST 2 VIEWS PA,LAT from 02/02/2008 FINDINGS: MEDIASTINUM: Normal. HEART: Normal. PULMONARY VASCULATURE: Normal. LUNGS: Clear. PLEURAL SPACE: No pleural effusion or pneumothorax. BONE:Within normal limits for the patient's age. OTHER FINDINGS:Normal. IMPRESSION: No acute pulmonary findings. DATA REPOSITORY: RADIATION DOSE DELIVERED:
[2023-09-18] MEDS: Ketorolac 15 MG/ML VIAL IM (20:10)
--- NOTE | 2023-09-18 20:25 | DI.VRAD_ITS ---
PROCEDURE INFORMATION: Exam: XR Chest Exam date and time: 09/18/2023 7:41 PM Age: 23 years old Clinical indication: Right-sided; Patient HX: R sided chest pain TECHNIQUE: Imaging protocol: Radiologic exam of the chest. Views: 2 views. Total images: 2 COMPARISON: CT ABDOMEN PELVIS W 11/04/2020 12:04 AM FINDINGS: Lungs: Lungs are clear without consolidation. Pleural spaces: No pleural effusion or pneumothorax. Heart/Mediastinum: Unremarkable. Bones/joints: Unremarkable. IMPRESSION: No acute findings. Dictated and Authenticated by: Parviz Quan MD. Ordering:CLEMENTINA Hollis MD
--- NOTE | 2023-09-18 23:14 | ED.GENADUL_ITS ---
Discharge Plan Disposition Patient Disposition: Home Condition: Stable Discharge Details Clinical Impression: Atypical chest pain Primary Care Provider: Unknown,Unknown ED Provider: Telma Toney Home Meds and New Rx's Prescriptions: New cyclobenzaprine 10 mg tablet 10 mg PO TID PRNQty: 14 0RF Continued Nexplanon 68 mg implant 1 implant subdermal ONCE Qty: 1 0RF Rx Instructions: as a single dose Discharge Instructions Instructions: Chest Pain (ED) Additional Instructions: Take ibuprofen 600 mg every 8 hours with food Take Flexeril 10 mg every 8 hours as needed for musculoskeletal pain Refrain from heavy lifting or repetitive motion Return with new or worsening complaints including fever or chills, shortness of breath, or should any new symptoms arise Stand Alone Forms: Work Release Discharge Data Discharge Date/Time-TO BE ENTERED AT DEPARTURE: 09/18/23 20:50 HPI General Date/Time Provider Initiated Documentation: 09/18/23 18:55 . HPI Narrative: This 23-year-old female presents with chest pain. Patient states that the pain started while she was loading eggs into a basket. Denies any known trauma. Denies any significant shortness of breath. Denies history of similar symptoms in the past and denies any chance of . Denies any estrogen hormone supplementation. Denies any recent flights, surgeries, long drives or history of coagulopathy. Related Data Home Medications Medication Instructions Recorded Confirmed etonogestrel 68 mg subdermal 1 implant subdermal ONCE #1 ea 03/29/23 09/18/23 implant (Nexplanon) cyclobenzaprine 10 mg tablet 10 mg PO TID PRN #14 tabs 09/18/23 Previous Rx's Medication Instructions Recorded etonogestrel 68 mg subdermal 1 implant subdermal ONCE #1 ea 03/29/23 implant (Nexplanon) cyclobenzaprine 10 mg tablet 10 mg PO TID PRN #14 tabs 09/18/23 Allergies Allergy/AdvReac Type Severity Reaction Status Date / Time morphine Allergy Unknown Other (See Verified 09/18/23 18:40 Comment) red (food color) Allergy Unknown Skin Rash Unverified 09/18/23 18:40 General Stated Complaint: Chest/Rib NAVEEN: 3 Exam Narrative Exam Narrative: This 23-year-old female presents with chest pain, reproducible on assessment to the costochondral region, no crepitus, lungs clear to auscultation, cardiac rate rhythm regular, no calf swelling or tenderness, distal pulses intact Course Vital Signs Vital signs: Vital Signs Temperature 36.8 C 09/18/23 18:36 Pulse 84 09/18/23 18:36 Respiratory Rate 18 09/18/23 18:36 Blood Pressure 123/75 09/18/23 18:36 Pulse Oximetry 98 09/18/23 18:36 Temperature 36.8 C 09/18/23 18:36 Temperature Source Oral 09/18/23 18:36 Pulse 83 09/18/23 19:30 Pulse 88 09/18/23 20:40 Respiratory Rate 25 H 09/18/23 20:40 Respiratory Effort Normal 09/18/23 20:48 Respiratory Depth Normal 09/18/23 20:48 Respiratory Pattern Normal 09/18/23 20:48 Blood Pressure 107/73 09/18/23 19:30 Blood Pressure Mean 82 09/18/23 19:30 Blood Pressure Position Sitting 09/18/23 18:36 Pulse Oximetry 97 09/18/23 20:40 Oxygen Delivery Method Room Air 09/18/23 18:36 Oxygen Flow Rate 0 09/18/23 18:36 Pain Level 6 09/18/23 18:36 Medical Decision Making Alert and oriented 23-year-old female presenting with report of chest pain. Patient has reproducible discomfort on exam EKG without acute abnormality. Given Toradol and chest x-ray performed. No evidence of pneumonia noted on x- ray. Very low suspicion clinically for cardiac etiology of patient's complaints. Discharged home in stable condition with stable vitals, encouraged ibuprofen and Tylenol use will treat for suspected costochondritis Quality:SDOH Health Related Social Needs: No Data to Display PFSH All Active Problems (Updated 09/18/23 @ 19:54 by XIOMY Land) Atypical chest pain (Acute) Acute viral syndrome (Acute) Chlamydia contact (Acute) Bilateral bunions (Chronic 05/24/17) Evaluateed by podiatry. Trial of inserts and f/u if pain persists. No longer wears inserts as of 07/2017. 07/25/18 Irregular menses (Chronic 09/23/14) Menometrorrhagia (Acute) Medical History On Depo-Provera for contraception Left lower quadrant pain Contraception Pediatric body mass index (BMI) of 5th percentile to less than 85th percentile for age (02/01/17) Depression Surgical History Hallux valgus (acquired), left foot S/P Eulalio osteotomy: 12/30/2019 History of bunionectomy S/P laparoscopy Operative laparoscopy with left ovarian cystotomy Hx of wisdom tooth extraction Family History Mother Mental disorder Depression Father No problems noted. Grandparent No problems noted. Sibling Mental disorder Depression and anxiety Asthma Social History Smoking/Tobacco Use Status: Current every day Tobacco Type: e-cigarettes Second Hand Exposure: No Smoking risk assessment performed?: Yes Alcohol Intake: never Details: Smokes Bautista has been since Apr, is a stress/suicidal thought reliever Drug use: Never Substance use type: does not use Adopted: No Foster care: No Education Level: high school Details: 10th grade, [employer] Pets and animals: Yes Pets and animals: dog(s) Current gender identity: female What type of physical activity do you participate in: other Seatbelt use: always Helmet use: Yes Fire extinguisher in home: Yes Carbon monox detector in home: Yes Firearms in home: No Do you feel safe at home: Yes Do you feel safe in your relationship?: Yes Female Reproductive History Menstrual control method: none History History 0 Para Hx # Term Pregnancies Multiple births Hx # Pregnancies Ectopic pregnancies AB induced Hx Number of Living Children AB spontaneous
== END 2023-09-18 20:50 | disposition home or self-care (01) ==
PROVIDERS: Emergency Provider Physician Assistant
DX: R07.9 Chest pain, unspecified (principal); F17.290 Nicotine dependence, other tobacco product, uncomplicated
CPT/HCPCS: 93005; 99284; 71046; 93010; J1885

== ENCOUNTER 2023-11-03 15:16 | Outpatient (REF) | payer MEDICAID, SELFPAY ==
--- OUTSIDE RECORDS SUMMARY | 2023-11-03 15:22 | XMS_ITS | Clinical Summary ---
Author Organization [facility] [place] [address] Care Team Providers Care Merchandising Director Name Role Phone Jonathan Penaloza MD Primary Care Provider [phone] Social History Tobacco Use Types Packs/Day Years Used Date Smoking Tobacco: Never Assessed Sex and Gender Information Value Date Recorded Sex Assigned at Not on file Gender Identity Not on file Sexual Orientation Not on file Plan of Treatment Health Maintenance Due Date Last Done Comments Chlamydia Screening 2017 HPV vaccine (1 - 3-dose series) 2017 HIV screen 2020 Hepatitis C Screening 2020 Hepatitis B vaccine (0-59 yrs) (1) 2021 Tdap adult 2021 Tetanus vaccine 2021 Covid-19 Vaccine ( - 2022-24 season) 2022 PAP Smear 2023 Influenza (Flu) vaccine (1 o f 1 - Influenza standard series) 12/17/2023 Care Teams Merchandising Director Relationship Specialty Start Date End Date Jonathan Penaloza MD [address] [facility] [place] [address] PCP - General 03/09/10
--- OUTSIDE RECORDS SUMMARY | 2023-11-03 15:22 | XMS_ITS | Encounter Summary ---
Author Organization [facility] Address [address] [place] [address] Care Team Providers Care Application Integration Engineer Name Role Phone Unknown, Provider Primary Care Provider Encounter Details Date Type Department Care Team (Late st Contact Info) Description 03/23/2020 Lab Requisition [facility] Pathology & Laboratory Medicine - [address] [address] Outr Resulting Lab, Provider Social History Tobacco Use Types Packs/Day Years Used Date Smoking Tobacco: Never Assessed Interpersonal Safety Answer Date Record ed Physically Hurt Never 03/10/2020 Verbally Threaten Not on file 03/10/2020 Sex and Gender Information Value Date Recorded Sex Assigned at Not on file Gender Identity Not on file Sexual Orientation Not on file documented as of this encounter Plan of Treatment Not on file documented as of this encounter Procedures Procedure Name Priority Date/Time Associated Diagnosis Comments HIV 1/2 ANTIGEN AND ANTIBODY, 4TH GENERATION Routine 03/23/2020 10:07 EST documented in this encounter Results * HIV 1/2 ANTIGEN AND ANTIBODY, 4TH GENERATION (03/23/2020 10:07 EST) HIV 1 and 2 Antibody/p24 Antigen, 4th Generation Negative Negative 03/24/2020 12:40 EST [facility] Comment: If acute HIV-1 infection is suspected in a high risk ??patient, submit plasma specimen for HIV-1 RNA quantitation test. Fourth Generation assay performed on the Siemens Centaur. Blood VENOUS BLOOD / Unknown 03/23/2020 10:07 EST 03/23/2020 15:45 EST Provider Outr Resulting Lab IMMUNOLOGY A ND SEROLOGY ORDERABLES [facility] [address] [place] [address] documented in this encounter Visit Diagnoses Not on filedocumented in this encounter Additional Health Concerns Infection Onset Date Last Indicated Resolved Time COVID-19 04/21/2021 04/21/2021 05/11/2021 22:1 5 EST documented as of this encounter Care Teams Application Integration Engineer Relationship Specialty Start Date End Date Unknown, Provider, PCP - General 07/16/21 documented as of this encounter
--- OUTSIDE RECORDS SUMMARY | 2023-11-03 15:22 | XMS_ITS | Encounter Summary ---
Author Organization [facility] Address [address] [place] [address] Care Team Providers Care Masonry Inspector Name Role Phone Unknown, Provider Primary Care Provider Encounter Details Date Type Department Care Team (Late st Contact Info) Description 03/23/2020 Lab Requisition [facility] Pathology & Laboratory Medicine - [facility] [address] [place] [address] Outr Resulting Lab, Provider Social History Tobacco [...] Procedure Name Priority Date/Time Associated Diagnosis Comments HEPATITIS C AB W REFLEX TO HCV RNA BY PCR Routine 03/23/2020 10:07 EST documented in this encounter Results * HEPATITIS C AB W REFLEX TO HCV RNA BY PCR (03/23/2020 10:07 EST) Hep C Antibody Negative Negative 03/24/2020 10:57 EST [facility] Blood VENOUS BLOOD / Unknown 03/23/2020 10:07 EST 03/23/2020 15:45 EST Provider Outr Resulting Lab CHEMISTRY & BLOOD GAS ORDERABLES [facility] [address] [place] [address] documented in this encounter Visit Diagnoses Not on filedocumented in this encounter Additional Health Concerns Infection Onset Date Last Indicated Resolved Time COVID-19 04/21/2021 04/21/2021 05/11/2021 22:1 5 EST documented as of this encounter Care Teams Masonry Inspector Relationship Specialty Start Date End Date Unknown, Provider, PCP - General 07/16/21 documented as of this encounter
--- OUTSIDE RECORDS SUMMARY | 2023-11-03 15:22 | XMS_ITS | Encounter Summary ---
Author Organization [facility] Address [address] [place] [address] Care Team Providers Care Counselor Aid Name Role Phone Unknown, Provider Primary Care Provider Encounter Details Date Type Department Care Team (Late st Contact Info) Description 12/08/2022 Lab Requisition [facility] Pathology & Laboratory Medicine - [facility] [address] [place] [address] Outr Resulting Lab, Provider Social History Tobacco Use Types Packs/Day Years Used Date Smoking Tobacco: Never Smokeless Tobacco: Never Interpersonal Safety Answer Date Record ed Physically Hurt Never 03/10/2020 Verbally Threaten Not on file 03/10/2020 Sex and Gender Information Value Date Recorded Sex Assigned at Not on file Gender Identity Not on file Sexual Orientation Not on file documented as of this encounter Plan of Treatment Not on file documented as of this encounter Procedures Procedure Name Priority Date/Time Associated Diagnosis Comments FECAL BACTERIAL PATHOGENS BY PCR Routine 12/07/2022 15:46 EDT GIARDIA AND CRYPTOSPORIDIUM ANTIGENS Routine 12/07/2022 15:46 EDT OVA/PARASITE EXAM Routine 12/07/2022 15: 46 EDT documented in this encounter Results * GIARDIA AND CRYPTOSPORIDIUM ANTIGENS (12/07/2022 15:46 EDT) Giardia and Cryptosporidium Cryptosporidium Antigen Neg and Giardia Antigen Neg Cryptosporidium Antigen Neg and Giardia Antigen Neg 11:04 EDT [facility] Feces SPECIMEN FROM RECTUM / Unknown 12/07/2022 15:46 EDT 12/08/2022 17:35 EDT Provider Outr Resulting Lab MICROBIOLOGY - GENERAL ORDERABLES [facility] [address] [place] [address] * FECAL BACTERIAL PATHOGENS BY PCR (12/07/2022 15:46 EDT) Salmonella PCR Negative Negative 12/09/2022 0:32 EDT [facility] Shigella/Enteroin vasive E. coli Negative Negative 12/09/2022 0:32 EDT [facility] HN LAB CAMPYLOBACTER PCR Negative Negative 12/09/2022 0:32 EDT [facility] Shiga Toxin PCR Negative Negative 0:32 EDT [facility] Feces SPECIMEN FROM RECTUM / Unknown 12/07/2022 15:46 EDT 12/08/2022 17:35 EDT Provider Outr Resulting Lab MICROBIOLOGY - GENERAL ORDERABLES Performing Organization Address [facility] [place]/[facility]/ZIP Co de Phone Number [facility] [address] [place] [address] * OVA/PARASITE EXAM (12/07/2022 15:46 EDT) Parasite No ova and parasites seen. 12/09/2022 13:48 EDT [facility] Feces SPECIMEN FROM RECTUM / Unknown 12/07/2022 15:46 EDT 12/08/2022 17:35 EDT Narrative [facility] - 12/09/2022 13:48 EDT (If Cryptosporidium, Cyclospora, or Microsporidium are suspected, specific tests must be requested.) Single negative specimen does not rule out the possibility of a parasitic infection. Provider Outr Resulting Lab MICROBIOLOGY - GENERAL ORDERABLES Performing Organization Address City/[facility]/ZIP Co de Phone Number [facility] [address] [place] [address] documented in this encounter Visit Diagnoses Not on filedocumented in this encounter Care Teams Counselor Aid Relationship Specialty Start Date End Date Unknown, Provider, PCP - General 07/16/21 documented as of this encounter
--- OUTSIDE RECORDS SUMMARY | 2023-11-03 15:22 | XMS_ITS | Encounter Summary ---
Author Organization [facility] Address [address] [place] [address] Care Team Providers Care Wax Pumper Name Role Phone Unknown, Provider Primary Care Provider Encounter Details Date Type Department Care Team (Late st Contact Info) Description 07/06/2022 Lab Requisition [facility] Pathology & Laboratory Medicine - [facility] [address] [place] [address] Outr Resulting Lab, Provider Social History Tobacco [...] Procedure Name Priority Date/Time Associated Diagnosis Comments ZZCOVID-19 TEST [facility] PCR Today 07/05/2022 13:32 EDT COVID-19 TESTING Routine 07/05/2022 13:3 2 EDT documented in this encounter Results * COVID-19 TEST [facility] PCR (07/05/2022 13:32 EDT) Swab ENTIRE NASOPHARYNX / Unknown 07/05/2022 13:32 EDT 07/06/2022 16:43 EDT Provider Outr Resulting Lab MICROBIOLOGY - GENERAL ORDERABLES [facility] [address] [place] [address] * COVID-19 TESTING (07/05/2022 13:32 EDT) COVID-19 rt-PCR Result Negative Negative 07/06/2022 23:56 EDT [facility] Comment: This test has not been FDA cleared or approved. This test has been authorized by FDA under an EUA for use by authorized laboratories. This test has been authorized only for detection of nucleic acid from 2019-nCoV, not for any other viruses or pathogens. This test is only authorized for the duration of the declaration that circumstances exist justifying the authorization of emergency use of in vitro diagnostic tests for detection and/or diagnosis of 2019-nCoV under section 564(b)(1) of Act, 21 U.S.C ?? 360bbb-3(b) (1), unless the authorization is terminated or revoked sooner. Negative results do not preclude 2019-nCoV infection and should not be used as the sole basis for treatment or other patient management decisions. Negative results must be combined with clinical observations, patient history, and epidemiological information. Performed on the [employer] Fusion instrument Performing Lab [place] [facility] Lab 07/06/2022 23:56 EDT [facility] Swab ENTIRE NASOPHARYNX / Unknown 07/05/2022 13:32 EDT 07/06/2022 16:43 EDT Provider Outr Resulting Lab MICROBIOLOGY - GENERAL ORDERABLES [facility] [address] [place] [address] documented in this encounter Visit Diagnoses Not on filedocumented in this encounter Care Teams Wax Pumper Relationship Specialty Start Date End Date Unknown, Provider, PCP - General 07/16/21 documented as of this encounter
--- OUTSIDE RECORDS SUMMARY | 2023-11-03 15:22 | XMS_ITS | Encounter Summary ---
Author Organization [facility] Address [address] [place] [address] Care Team Providers Care Blow Molder Name Role Phone Unavailable Primary Care Provider Unavailabl e Reason for Visit * Reason Onset Date Comments Appointment Related 05/21/2021 Encounter Details Date Type Department Care Team (Late st Contact Info) Description 05/21/2021 Telephone [facility] Dermatology [address] [id number] Shayy Robert MD [address] [place] [address], [address] [place] [address] Appointment Related Social History Tobacco Use Types Packs/Day Years Used Date Smoking Tobacco: Never Assessed Interpersonal Safety Answer Date Record ed Physically Hurt Never 03/10/2020 Verbally Threaten Not on file 03/10/2020 Sex and Gender Information Value Date Recorded Sex Assigned at Not on file Gender Identity Not on file Sexual Orientation Not on file documented as of this encounter Miscellaneous Notes * Telephone Encounter - Eryn Gar MA - 05/21/2021 1306 EST Patient is scheduled for a NPV with Dr. Robert in mid-September. Patient's parent wanted her to be seen earlier. I recommended that her PCP send a referral. If referral is sent to us, OK to schedule sooner. ERYN GAR MA 05/21/2021 13:06 documented in this encounter Plan of Treatment Not on file documented as of this encounter Visit Diagnoses Not on filedocumented in this encounter
--- OUTSIDE RECORDS SUMMARY | 2023-11-03 15:22 | XMS_ITS | Referral Summary ---
Author Organization [facility] Address [address] [place] [address] Care Team Providers Care Sales And Service Associate Name Role Phone Unknown, Provider Primary Care Provider Allergies Active Allergy Reactions Criticality Noted Date Comments Morphine 09/27/2021 Medications Medication Sig Dispensed Refills Start Date End Date Status triamcinolone (ARISTOCORT) 0.5 % cream APPLY TOPICALLY TWO TIMES A DAY 09/23/2021 Active TACRolimus (PROTOPIC) 0.1 % ointment Apply topically to affected area 2 times daily. For the hands 60 g 5 09/27/2021 Active clobetasoL (TEMOVATE) 0.05 % ointment Apply topically to affected area 2 times daily. To the hands. Do not apply to face, armpit or groin. 60 g 3 09/27/2021 Active Active Problems No known active problems Social History Tobacco Use Types Packs/Day Years Used Date Smoking Tobacco: Never Smokeless Tobacco: Never Interpersonal Safety Answer Date Record ed Physically Hurt Never 03/10/2020 Verbally Threaten Not on file 03/10/2020 Sex and Gender Information Value Date Recorded Sex Assigned at Not on file Gender Identity Not on file Sexual Orientation Not on file Plan of Treatment Not on file Procedures Procedure Name Priority Date/Time Associated Diagnosis Comments HEPATITIS C AB W REFLEX TO HCV RNA BY PCR Routine 03/23/2020 10:07 EST from Last 3 Months or Most Recently Relevant to Health Maintenance Results * HEPATITIS C AB W REFLEX TO HCV RNA BY PCR (03/23/2020 10:07 EST) Hep C Antibody Negative Negative 03/24/2020 10:57 EST [facility] Blood VENOUS BLOOD / Unknown 03/23/2020 10:07 EST 03/23/2020 15:45 EST Provider Outr Resulting Lab CHEMISTRY & BLOOD GAS ORDERABLES [facility] [address] [place] [address] from Last 3 Months or Most Recently Relevant to Health Maintenance Care Teams Sales And Service Associate Relationship Specialty Start Date End Date Unknown, Provider, PCP - General 07/16/21
--- OUTSIDE RECORDS SUMMARY | 2023-11-03 15:22 | XMS_ITS | Encounter Summary ---
Author Organization [facility] Address [address] [place] [address] Care Team Providers Care Philanthropy Officer Name Role Phone Unknown, Provider Primary Care Provider Encounter Details Date Type Department Care Team (Late st Contact Info) Description 06/22/2020 Lab Requisition [facility] Pathology & Laboratory Medicine - [facility] [address] [place] [address] Outr Resulting Lab, Provider Social History Tobacco [...] Priority Date/Time Associated Diagnosis Comments ZZCOVID-19 TEST [facility] PCR Today 06/22/2020 7:45 EST COVID-19 TESTING Routine 06/22/2020 7:45 EST documented in this encounter Results * COVID-19 TEST [facility] PCR (06/22/2020 7:45 EST) Swab ENTIRE NASOPHARYNX / Unknown 06/22/2020 7:45 EST 06/22/2020 15:08 EST Provider Outr Resulting Lab MICROBIOLOGY - GENERAL ORDERABLES [facility] [address] [place] [address] * COVID-19 TESTING (06/22/2020 7:45 EST) COVID-19 rt-PCR Result Negative Negative 06/22/2020 17:51 EST [facility] Comment: This test has not [...] history, and epidemiological information. Performed on the [employer] Fusion instrument Performing Lab [place] [facility] Lab 06/22/2020 17:51 EST [facility] Swab 06/22/2020 7:45 EST 06/22/2020 15:08 EST Provider Outr Resulting Lab MICROBIOLOGY - GENERAL ORDERABLES [facility] [address] [place] [address] documented in this encounter Visit Diagnoses Not on filedocumented in this encounter Additional Health Concerns Infection Onset Date Last Indicated Resolved Time COVID-19 04/21/2021 04/21/2021 05/11/2021 22:1 5 EST documented as of this encounter Care Teams Philanthropy Officer Relationship Specialty Start Date End Date Unknown, Provider, PCP - General 07/16/21 documented as of this encounter
--- OUTSIDE RECORDS SUMMARY | 2023-11-03 15:22 | XMS_ITS | Encounter Summary ---
Author Organization [facility] Address [address] [place] [address] Care Team Providers Care Vibratory Pile Driver Name Role Phone Unknown, Provider Primary Care Provider Encounter Details Date Type Department Care Team (Late st Contact Info) Description 11/16/2021 Lab Requisition [facility] Pathology & Laboratory Medicine - [facility] [address] [place] [address] Outr Resulting Lab, Provider Social History Tobacco [...] Procedure Name Priority Date/Time Associated Diagnosis Comments ACUTE HEPATITIS PROFILE Routine 11/15/2021 22:18 EDT documented in this encounter Results * ACUTE HEPATITIS PROFILE (11/15/2021 22:18 EDT) Hep B Surface Ag Negative Negative 11/17/2021 10:48 EDT [facility] Hep C Antibody Negative Negative 11/17/2021 10:48 EDT [facility] Hepatitis A Antibody, IgM Negative Negative 11/17/2021 10:48 EDT [facility] Comment:The results of this assay can be falsely lowered due to the consumption of Biotin. Hepatitis B Core Ab, Total Negative Negative 11/17/2021 10:48 EDT [facility] Blood VENOUS BLOOD / Unknown 11/15/2021 22:18 EDT 11/16/2021 17:20 EDT Provider Outr Resulting Lab CHEMISTRY & BLOOD GAS ORDERABLES [facility] [address] [place] [address] documented in this encounter Visit Diagnoses Not on filedocumented in this encounter Care Teams Vibratory Pile Driver Relationship Specialty Start Date End Date Unknown, Provider, PCP - General 07/16/21 documented as of this encounter
--- OUTSIDE RECORDS SUMMARY | 2023-11-03 15:22 | XMS_ITS | Encounter Summary ---
Author Organization [facility] Address [facility] [place] [address] Care Team Providers Care Patient Scheduler Name Role Phone Jonathan Penaloza MD Primary Care Provider [phone] Encounter Details Date Type Department Care Team (Latest Contact Info) Description 06/21/2016 12:05 AM EST - 06/21/2016 11:59 PM EST Hospital Encounter [place] [address] Dave Keys MD [facility] [place] [address] Pain Discharge Disposition: Home Social History Tobacco Use Types Packs/Day Years Used Date Smoking Tobacco: Never Assessed Sex and Gender Information Value Date Recorded Sex Assigned at Not on file Gender Identity Not on file Sexual Orientation Not on file documented as of this encounter Plan of Treatment Not on file documented as of this encounter Procedures Procedure Name Priority Date/Time Associated Diagnosis Comments FILM LIBRARY STORAGE ONLY CT SPINE STAT 06/21/2016 12:05 AM EST Pain documented in this encounter Results * Film Library- Storage Only CT Spine (06/21/2016 12:05 AM EST) Narrative RAD - 06/22/2016 2:43 PM EST This exam is for storage only and is auto-finalizing. Dave Keys MD IMG FILM LIBRARY O RDERABLES [place], [place] documented in this encounter Visit Diagnoses Diagnosis Pain Generalized pain documented in this encounter Care Teams Patient Scheduler Relationship Specialty Start Date End Date Jonathan Penaloza MD [address] [place] [address] PCP - General 03/09/10 documented as of this encounter
--- OUTSIDE RECORDS SUMMARY | 2023-11-03 15:22 | XMS_ITS | Encounter Summary ---
Author Organization [facility] Address [address] [place] [address] Care Team Providers Care Icer Machine Operator Name Role Phone Unknown, Provider Primary Care Provider Encounter Details Date Type Department Care Team (Late st Contact Info) Description 03/18/2020 Lab Requisition [facility] Pathology & Laboratory Medicine - [address] [address] Outr Resulting Lab, Provider Social History Tobacco [...] Procedure Name Priority Date/Time Associated Diagnosis Comments CHLAMYDIA/N. GONORRHOEAE AMPLIFIED NUCLEIC ACID Routine 03/18/2020 8:40 EST documented in this encounter Results * CHLAMYDIA/N. GONORRHOEAE AMPLIFIED RNA (03/18/2020 8:40 EST) Neisseria gonorrhoeae Result Negative Negative 03/19/2020 14:52 EST [facility] Chlamydia trachomatis Result Negative Negative 03/19/2020 14:52 EST [facility] Swab ENTIRE VAGINA / Unknown 03/18/2020 8:40 EST 03/18/2020 17:19 EST Provider Outr Resulting Lab MICROBIOLOGY - GENERAL ORDERABLES [facility] [address] [place] [address] documented in this encounter Visit Diagnoses Not on filedocumented in this encounter Additional Health Concerns Infection Onset Date Last Indicated Resolved Time COVID-19 04/21/2021 04/21/2021 05/11/2021 22:1 5 EST documented as of this encounter Care Teams Icer Machine Operator Relationship Specialty Start Date End Date Unknown, Provider, PCP - General 07/16/21 documented as of this encounter
--- OUTSIDE RECORDS SUMMARY | 2023-11-03 15:22 | XMS_ITS | Encounter Summary ---
Author Organization [facility] Address [address] [place] [address] Care Team Providers Care Waterworks Operator Name Role Phone Unknown, Provider Primary Care Provider Encounter Details Date Type Department Care Team (Late st Contact Info) Description 04/22/2021 Lab Requisition [facility] Pathology & Laboratory Medicine - [facility] [address] [place] [address] Outr Resulting Lab, Provider Social History Tobacco [...] Comments ZZCOVID-19 TEST [facility] LAB PCR Today 04/21/2021 16:27 EST COVID-19 TESTING Routine 04/21/2021 16:2 7 EST documented in this encounter Results * COVID-19 TEST [facility] PCR (04/21/2021 16:27 EST) Swab 04/21/2021 16:2 7 EST 04/22/2021 17:45 EST Provider Outr Resulting Lab MICROBIOLOGY - GENERAL ORDERABLES [facility] [address] [place] [address] * (ABNORMAL) COVID-19 TESTING (04/21/2021 16:27 EST) COVID-19 rt-PCR Result Positive( AA) Negative 04/23/2021 16:23 EST [facility] Comment: This test has not [...] the authorization is terminated or revoked sooner. This test was developed and its performance characteristics determined by [facility]. It has not been cleared or approved by the US Food and Drug Administration. FDA does not require this test to go through premarket FDA review. This test is used for clinical purposes. It should not be regarded as investigational or for research. This laboratory is certified under the Clinical Laboratory Improvement Amendments (CLIA) as qualified to perform high complexity clinical laboratory testing. This test is based on the [facility] COVID-19 Emergency Use Authorization (EUA) assay, with minor modification as defined by the FDA Performed on the Joberatoro 7 Flex RT-PCR System. Performing Lab [facility] Lab 04/23/2021 16:23 EST [facility] Swab 04/21/2021 16:2 7 EST 04/22/2021 17:45 EST Provider Outr Resulting Lab MICROBIOLOGY - GENERAL ORDERABLES [facility] [address] [place] [address] documented in this encounter Visit Diagnoses Not on filedocumented in this encounter Additional Health Concerns Infection Onset Date Last Indicated Resolved Time COVID-19 04/21/2021 04/21/2021 05/11/2021 22:1 5 EST documented as of this encounter Care Teams Waterworks Operator Relationship Specialty Start Date End Date Unknown, Provider, PCP - General 07/16/21 documented as of this encounter
--- OUTSIDE RECORDS SUMMARY | 2023-11-03 15:22 | XMS_ITS | Encounter Summary ---
Author Organization [facility] Address [address] [place] [address] Care Team Providers Care Hoop Maker Machine Name Role Phone Unavailable Primary Care Provider Unavailabl e Encounter Details Date Type Department Care Team (Late st Contact Info) Description 06/22/2020 Results Only [facility] Lab [address] [place] [address] Lynn Dahl MD [address] [place] [address] Social History Tobacco Use Types Packs/Day Years [...] Procedure Name Priority Date/Time Associated Diagnosis Comments UA (CULTURE IF POSITIVE) - PMC Routine 06/22/2020 6:30 EST BASIC METABOLIC PANEL,RANDOM - PMC Routine 06/22/2020 6:30 EST TEST, URINE Routine 06/22/2020 6:30 EST COMPLETE BLOOD COUNT AND DIFFERENTIAL Routine 06/22/2020 6:30 EST documented in this encounter Results * BASIC METABOLIC PANEL,RANDOM - PMC (06/22/2020 6:30 EST) Sodium 142 136 - 145 mEq/L 06/22/2020 7:02 EST [facility] Potassium 3.5 3.5 - 5.1 mEq/L 06/22/2020 7:02 [facility] Chloride 104 96 - 107 mEq/L 06/22/2020 7:02 [facility] CO2 Total 27.9 21 - 32 mEq/L 06/22/2020 7:02 [facility] Anion Gap 10.1 mEq/L 06/22/2020 7:02 [facility] BUN 16 7 - 25 mg/dl 06/22/2020 7:02 [facility] Creatinine 0.86 0.55 - 1.02 mg/dl 06/22/2020 7:02 [facility] Estimated GFR >60 >60 06/22/2020 7:02 [facility] Comment: EGFR UNITS: mL/min/1.73 m 2 CKD-EPI Equation used to calculate. Glucose 87 70 - 180 mg/dl 06/22/2020 7:02 [facility] Calcium 8.7 8.5 - 10.1 mg/dl 06/22/2020 7:02 [facility] 06/22/2020 6:30 EST 06/22/2020 6:43 EST Lynn Dahl MD CHEMISTRY & BLOOD G ORDERABLES [facility] [address] [place] [address] * COMPLETE BLOOD COUNT AND DIFFERENTIAL (06/22/2020 6:30 EST) WBC 9.5 4.0 - 10.5 10 3/uL 06/22/2020 6:59 [facility] RBC 5.07 4.20 - 5.40 10 6/uL 06/22/2020 6:59 [facility] Hemoglobin 14.6 12.5 - 16.0 g/dL 06/22/2020 6:59 [facility] HCT 43.9 37.0 - 47.0 % 06/22/2020 6:59 [facility] MCV 86.6 78 - 100 fL 06/22/2020 6:59 [facility] MCH 28.8 27 - 31 pg 06/22/2020 6:59 [facility] MCHC 33.3 32 - 37 g/dL 06/22/2020 6:59 [facility] RDW-CV - PMC 11.9 <14.7 % 06/22/2020 6:59 [facility] PLATELET COUNT - PMC 372 150 - 450 10 3/uL 06/22/2020 6:59 [facility] MPV 10.0 9.2 - 12.0 fL 06/22/2020 6:59 [facility] NEUTROPHILS % (AUTO) - PMC 55.8 42.0 - 75.0 % 06/22/2020 6:59 [facility] LYMPHOCYTES % (AUTO) - PMC 33.2 16.0 - 52.0 % 06/22/2020 6:59 [facility] MONOCYTES % (AUTO) - PMC 8.8 1.0 - 11.0 % 06/22/2020 6:59 [facility] EOSINOPHILS % (AUTO) - PMC 1.5 0.0 - 7.0 % 06/22/2020 6:59 [facility] BASOPHILS % (AUTO) - PMC 0.5 0.0 - 4.0 % 06/22/2020 6:59 [facility] Immature Granulocyte % (Auto) 0.2 % 06/22/2020 6:59 [facility] NUCLEATED RBC % (AUTO) - PMC 0.0 <1 % 06/22/2020 6:59 [facility] NEUTROPHILS # (AUTO) - PMC 5.3 1.5 - 6.6 10 3/uL 06/22/2020 6:59 [facility] LYMPHOCYTES # (AUTO) - PMC 3.2 1.0 - 3.5 10 3/uL 06/22/2020 6:59 [facility] MONOCYTES # (AUTO) - PMC 0.8 <1.0 10 3/uL 06/22/2020 6:59 [facility] EOSINOPHILS # (AUTO) - PMC 0.1 <0.7 10 3/uL 06/22/2020 6:59 [facility] BASOPHILS # (AUTO) - PMC 0.1 <0.1 10 3/uL 06/22/2020 6:59 [facility] Absolute Immature Granulocyte 0.02 <0.06 10 3/uL 06/22/2020 6:59 [facility] NUCLEATED RBC # (AUTO) - PMC 0.00 <1 10 3/uL 06/22/2020 6:59 [facility] 06/22/2020 6:30 EST 06/22/2020 6:42 EST Lynn Dahl MD PACKAGES & DNA PROB E ORDERABLES Performing Organization Address [facility] Co de Phone Number [facility] [address] [place] [address] * TEST, URINE (06/22/2020 6:30 EST) Test, Urine Negative Negative 06/22/2020 6:57 [facility] 06/22/2020 6:30 EST 06/22/2020 6:41 EST Narrative [facility] - 06/22/2020 6:57 EST Collection Method Unknown Lynn Dahl MD URINALYSIS ORDERABL ES Performing Organization Address [facility] Co de Phone Number [facility] [address] [place] [address] * UA (CULTURE IF POSITIVE) - PMC (06/22/2020 6:30 EST) URINE COLOR - PMC Yellow Straw/Yelow 06/22/2020 6:53 [facility] URINE APPEARANCE - PMC Clear Clr/Hazy 06/22/2020 6:53 [facility] URINE PH - PMC 6.0 4.6 - 8.0 06/22/2020 6:53 [facility] UR SPECIFIC GRAVITY (REFRACTOM) - PMC 1.028 1.001 - 1.035 06/22/2020 6:55 [facility] URINE PROTEIN - PMC Negative Negative mg/dL 06/22/2020 6:53 [facility] URINE GLUCOSE (UA) - PMC Negative Negative mg/dL 06/22/2020 6:53 [facility] URINE KETONES - PMC Negative Negative mg/dL 06/22/2020 6:53 [facility] URINE BILIRUBIN - PMC Negative Negative 06/22/2020 6:53 [facility] URINE BLOOD - PMC Negative Negative 06/22/2020 6:53 [facility] URINE UROBILINOGEN - PMC 0.2 0.2 - 1.0 E.U./dL 06/22/2020 6:53 [facility] URINE NITRATE - PMC Negative Negative 06/22/2020 6:53 [facility] URINE LEUKOCYTE ESTERASE - PMC Negative Negative 06/22/2020 6:53 [facility] URINE CULTURE COMMENTS - PMC CRITERIA NOT MET 06/22/2020 6:56 [facility] Comment:Specimen does not me et criteria for culture. [employer] - PMC UR Microscopic N/A 06/22/2020 6:56 [facility] Comment:Microscopic exam is not indicated. 06/22/2020 6:30 EST 06/22/2020 6:41 EST [facility] - 06/22/2020 6:57 EST Collection Method Unknown Lynn Dahl MD MI[facility]BIOLOGY [facility] ORDERABLES [facility] [address] [place] [address] documented in this encounter Visit Diagnoses Not on filedocumented in this encounter
--- OUTSIDE RECORDS SUMMARY | 2023-11-03 15:22 | XMS_ITS | Encounter Summary ---
Author Organization [facility] Address [address] [place] [address] Care Team Providers Care Lpn Medical Assistant Name Role Phone Unavailable Primary Care Provider Unavailabl e Encounter Details Date Type Department Care Team (Late st Contact Info) Description 06/22/2020 Results Only [facility] [address] [place] [address] Silvino Apple MD [address] [place] [address] Social History Tobacco Use Types [...] Procedure Name Priority Date/Time Associated Diagnosis Comments COVID 19 TESTING -[facility] Routine 06/22/2020 7:45 EST documented in this encounter Results * COVID 19 TESTING -[facility] (06/22/2020 7:45 EST) COVID-19 [facility] Result Negative Negative 06/22/2020 20:38 EST [facility] Comment: This test has not been FDA [...] under section 564(b)(1) of Act, 21 U.S.C ? 360bbb-3(b) (1), unless the authorization is terminated or revoked sooner. Negative results do not preclude 2019-nCoV infection and should not be used as the sole basis for treatment or other patient management decisions. Negative results must be combined with clinical observations, patient history, and epidemiological information. Performed on the LXSNher Fusion instrument Reference Lab Test Performing Site [facility] 06/22/2020 20:38 EST [facility] Comment: Please select one of these categories:: NONE Please indicate the Triage Tier2 Test performed [place] [address] 06/22/2020 7:45 EST 06/22/2020 7:48 EST Narrative [facility] - 06/22/2020 20:38 EST 2 None of the Above Silvino Apple MD MICROBIOLOGY - [facility] ORDERABLES [facility] [address] [place] [address] documented in this encounter Visit Diagnoses Not on filedocumented in this encounter
--- OUTSIDE RECORDS SUMMARY | 2023-11-03 15:22 | XMS_ITS | Encounter Summary ---
Author Organization [facility] Address [address] [place] [address] Care Team Providers Care Riveter Portable Machine Name Role Phone Unknown, Provider Primary Care Provider Encounter Details Date Type Department Care Team (Late st Contact Info) Description 03/29/2023 Lab Requisition [facility] Pathology & Laboratory Medicine - [facility] [address] [place] [address] Outr Resulting Lab, Provider Social History Tobacco [...] Comments CHLAMYDIA/N. GONORRHOEAE AMPLIFIED NUCLEIC ACID Routine 03/29/2023 9:30 EST documented in this encounter Results * CHLAMYDIA/N. GONORRHOEAE AMPLIFIED RNA (03/29/2023 9:30 EST) Neisseria gonorrhoeae Result Negative Negative 03/30/2023 12:36 EST [facility] Chlamydia trachomatis Result Negative Negative 03/30/2023 12:36 EST [facility] Urine URINE / Unknown 03/29/2023 9 :30 EST 03/29/2023 17:29 EST Narrative [facility] - 03/30/2023 12:36 EST A first catch urine specimen is acceptable for detection of Gonorrhea and Chlamydia, but might detect up to 10% fewer infections when compared with vaginal and endocervical swab samples. Provider Outr Resulting Lab MICROBIOLOGY - GENERAL ORDERABLES [facility] [address] [place] [address] documented in this encounter Visit Diagnoses Not on filedocumented in this encounter Care Teams Riveter Portable Machine Relationship Specialty Start Date End Date Unknown, Provider, PCP - General 07/16/21 documented as of this encounter
--- OUTSIDE RECORDS SUMMARY | 2023-11-03 15:22 | XMS_ITS | Clinical Summary ---
Author Organization [facility] Address [address] [place] [address] Care Team Providers Care Director Of Curriculum Name Role Phone Unknown, Provider Primary Care [...] on file Sexual Orientation Not on file Obstetrics History Plan of Treatment Health Maintenance Due Date Last Done Comments COVID-19 Vaccine (#1) 2007 Hepatitis B Vaccine (1 of 3 - 19+ 3-dose series) 06/13 Hepatitis C Screen Completed 03/23/2020 Procedures Procedure Name Priority Date/Time Associated Diagnosis Comments HEPATITIS C AB W REFLEX TO HCV RNA BY PCR Routine 03/23/2020 10:07 EST from Last 3 Months or Most Recently Relevant to Health Maintenance Results * HEPATITIS C AB W REFLEX TO HCV RNA BY PCR (03/23/2020 10:07 EST) Hep C Antibody Negative Negative 03/24/2020 10:57 EST [facility] Blood VENOUS BLOOD / Unknown 03/23/2020 10:07 EST 03/23/2020 15:45 EST Provider Outr Resulting Lab CHEMISTRY & BLOOD GAS ORDERABLES [facility] [address] [place] [address] from Last 3 Months or Most Recently Relevant to Health Maintenance Care Teams Director Of Curriculum Relationship Specialty Start Date End Date Unknown, MD Jean-Paul [facility] - General 07/16/21
--- OUTSIDE RECORDS SUMMARY | 2023-11-03 15:22 | XMS_ITS | Encounter Summary ---
Author Organization [facility] Address [address] [place] [address] Care Team Providers Care Revising Clerk Name Role Phone Unavailable Primary Care Provider Unavailabl e Encounter Details Date Type Department Care Team (Late st Contact Info) Description 09/05/2020 Results Only [facility] [address] [place] [address] Lynn Dahl MD [address] [place] [address] Social History Tobacco Use Types [...] Procedure Name Priority Date/Time Associated Diagnosis Comments COMPLETE BLOOD COUNT AND DIFFERENTIAL Routine 09/05/2020 16:16 EDT BASIC METABOLIC PANEL (BMP) Routine 09/05/2020 16:16 EDT UA (CULTURE IF POSITIVE) - PMC Routine 09/05/2020 16:01 EDT UA MICROSCOPIC - PMC Routine 09/05/2020 16:01 EDT TEST, URINE Routine 09/05/2020 16:01 EDT documented in this encounter Results * (ABNORMAL) BASIC METABOLIC PANEL (BMP) (09/05/2020 16:16 EDT) Sodium 141 136 - 145 mEq/L 09/05/2020 16:35 [facility] Potassium 3.1(L) 3.5 - 5.1 mEq/L 09/05/2020 16:35 [facility] Chloride 104 96 - 107 mEq/L 09/05/2020 16:35 [facility] CO2 Total 27.3 21 - 32 mEq/L 09/05/2020 16:35 [facility] Anion Gap 9.7 mEq/L 09/05/2020 16:35 [facility] BUN 12 7 - 25 mg/dl 09/05/2020 16:35 [facility] Creatinine 0.80 0.55 - 1.02 mg/dl 09/05/2020 16:35 [facility] Estimated GFR >60 >60 09/05/2020 16:35 [facility] Comment: EGFR UNITS: mL/min/1.73 m 2 CKD-EPI Equation used to calculate. Glucose 78 74 - 106 mg/dl 09/05/2020 16:35 [facility] Calcium 8.9 8.5 - 10.1 mg/dl 09/05/2020 16:35 [facility] 09/05/2020 16:1 6 EDT 09/05/2020 16:16 [facility] Narrative LAB - 09/05/2020 16:47 EDT Sample collected at time of saline lock or IV placement. Lynn Dahl MD CHEMISTRY & BLOOD G ORDERABLES LAB [address] [place] [address] * COMPLETE BLOOD COUNT AND DIFFERENTIAL (09/05/2020 16:16 EDT) WBC 9.6 4.0 - 10.5 10 3/uL 09/05/2020 16:32 [facility] RBC 4.66 4.20 - 5.40 10 6/uL 09/05/2020 16:32 [facility] Hemoglobin 13.2 12.5 - 16.0 g/dL 09/05/2020 16:32 [facility] HCT 39.5 37.0 - 47.0 % 09/05/2020 16:32 [facility] MCV 84.8 78 - 100 fL 09/05/2020 16:32 [facility] MCH 28.3 27 - 31 pg 09/05/2020 16:32 [facility] MCHC 33.4 32 - 37 g/dL 09/05/2020 16:32 [facility] RDW-CV - PMC 11.7 <14.7 % 09/05/2020 16:32 [facility] PLATELET COUNT - PMC 344 150 - 450 10 3/uL 09/05/2020 16:32 [facility] MPV 9.8 9.2 - 12.0 fL 09/05/2020 16:32 [facility] NEUTROPHILS % (AUTO) - PMC 61.8 % 09/05/2020 16:32 [facility] LYMPHOCYTES % (AUTO) - PMC 29.6 % 09/05/2020 16:32 [facility] MONOCYTES % (AUTO) - PMC 7.2 % 09/05/2020 16:32 [facility] EOSINOPHILS % (AUTO) - PMC 0.8 % 09/05/2020 16:32 [facility] BASOPHILS % (AUTO) - PMC 0.4 % 09/05/2020 16:32 [facility] Immature Granulocyte % (Auto) 0.2 % 09/05/2020 16:32 [facility] NUCLEATED RBC % (AUTO) - PMC 0.0 % 09/05/2020 16:32 [facility] NEUTROPHILS # (AUTO) - PMC 5.9 1.5 - 6.6 10 3/uL 09/05/2020 16:32 [facility] LYMPHOCYTES # (AUTO) - PMC 2.8 1.0 - 3.5 10 3/uL 09/05/2020 16:32 [facility] MONOCYTES # (AUTO) - PMC 0.7 <1.0 10 3/uL 09/05/2020 16:32 EDT LAB EOSINOPHILS # (AUTO) - PMC 0.1 <0.7 10 3/uL 09/05/2020 16:32 T LAB Absolute Immature Granulocyte 0.02 <0.06 10 3/uL 09/05/2020 16:32 T LAB DIFFERENTIAL METHOD Auto Differential 09/05/2020 16:17 T LAB 09/05/2020 16:1 6 EDT 09/05/2020 16:17 EDT [facility] - 09/05/2020 16:32 EDT Sample collected at time of saline lock or IV placement. Lynn Dahl MD PACKAGES & DNA PROB E ORDERABLES Performing Organization Address City/[facility]/ZIP Co de Phone Number LAB [address] [place] [phone] * (ABNORMAL) UA MICROSCOPIC - PMC (09/05/2020 16:01 EDT) URINE RBC - PMC 3-10(A) 0 - 2 hpf 16:18 [facility] URINE WBC - PMC None seen 0 - 3 hpf 16:18 [facility] URINE BACTERIA - PMC None Seen None Seen hpf 09/05/2020 16:18 [facility] URINE MUCUS - PMC Present lpf 09/05/2020 16:18 [facility] URINE SQUAMOUS EPITHELIAL CELL - PMC Few None-Few hpf 09/05/2020 16:18 T LAB 09/05/2020 16:0 1 EDT 09/05/2020 16:06 EDT [facility] - 09/05/2020 16:18 EDT Collection Method Unknown Lynn Dahl MD CHEMISTRY & BLOOD G ORDERABLES Performing Organization Address [facility]/ZIP Co de Phone Number LAB [address] [place] [phone] * TEST, URINE (09/05/2020 16:01 EDT) Test, Urine Negative Negative 09/05/2020 16:17 [facility] 09/05/2020 16:0 1 EDT 09/05/2020 16:06 EDT Narrative LAB - 09/05/2020 16:18 EDT Collection Method Unknown Lynn Dahl MD URINALYSIS ORDERABL ES LAB [address] [place] [address] * (ABNORMAL) UA (CULTURE IF POSITIVE) - PMC (09/05/2020 16:01 EDT) [facility] URINE COLOR - PMC Yellow Straw/Yelow 09/05/2020 16:09 [facility] URINE APPEARANCE - PMC Clear Clr/Hazy 09/05/2020 16:09 [facility] URINE PH - PMC 6.0 4.6 - 8.0 09/05/2020 16:09 [facility] UR SPECIFIC GRAVITY (REFRACTOM) - PMC 1.025 1.001 - 1.035 09/05/2020 16:11 [facility] URINE PROTEIN - PMC Negative Negative mg/dL 09/05/2020 16:09 [facility] URINE GLUCOSE (UA) - PMC Negative Negative mg/dL 09/05/2020 16:09 [facility] URINE KETONES - PMC Negative Negative mg/dL 09/05/2020 16:09 [facility] URINE BILIRUBIN - PMC Negative Negative 09/05/2020 16:09 [facility] URINE BLOOD - PMC Moderate(A) Negative 09/05/2020 16:09 [facility] URINE UROBILINOGEN - PMC 0.2 0.2 - 1.0 E.U./dL 09/05/2020 16:09 [facility] URINE NITRATE - PMC Negative Negative 09/05/2020 16:09 [facility] URINE LEUKOCYTE ESTERASE - PMC Negative Negative 09/05/2020 16:09 [facility] URINE CULTURE COMMENTS - PMC CRITERIA NOT MET 09/05/2020 16:18 EDT LAB Comment:Specimen does not me et criteria for culture. 09/05/2020 16:0 1 EDT 09/05/2020 16:06 EDT Narrative LAB - 09/05/2020 16:18 EDT Collection Method Unknown Lynn Dahl MD MICROBIOLOGY - [facility] ORDERABLES Performing Organization Address City/State/[facility] Co de Phone Number LAB [address] [place] [address] documented in this encounter Visit Diagnoses Not on filedocumented in this encounter
--- OUTSIDE RECORDS SUMMARY | 2023-11-03 15:22 | XMS_ITS | Encounter Summary ---
Author Organization [facility] Address [address] [place] [address] Care Team Providers Care Administrative Project Coordinator Name Role Phone Unknown, Provider Primary Care Provider Encounter Details Date Type Department Care Team (Late st Contact Info) Description 08/18/2021 Lab Requisition [facility] Pathology & Laboratory Medicine - [facility] [address] [place] [address] Sarah Alanis [address] [place] [address] [place] [phone] Other specified postprocedural states Social History Tobacco Use Types Packs/Day Years [...] Procedure Name Priority Date/Time Associated Diagnosis Comments SURGICAL PATHOLOGY Today 08/18/2021 9: 11 EDT Other specified postprocedural states documented in this encounter Results * SURGICAL PATHOLOGY (08/18/2021 9:11 EDT) Note to Patient The following pathology results have been interpreted by your pathologist and may be available to you before your health provider has had the opportunity to review them. Please allow time for your provider to receive these results and explore management options, if applicable. 08/24/2021 15:38 EDT [facility] Final Diagnosis A. 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 See comment. 08/24/2021 15:38 [facility] Diagnosis Comment The extent of cauterization of the cyst lining limits interpretation. No atypical epithelial proliferation is seen. 08/24/2021 15:38 [facility] Attestation There was significant resident/fellow involvement in the diagnostic evaluation of this case. By the signature below, the attending physician certifies that they have personally conducted a gross and/or microscopic examination of the described specimens and rendered or confirmed the above diagnosis. 08/24/2021 15:38 [facility] at 1538 Clinical History Cyst of left ovary 08/24/2021 15:38 [facility] Gross Description A. Received in formalin labelled with proper patient identification (initials B, D) and ovarian tissue and cyst wall is a section of ovary (2.5 x 2.0 x 1.2 cm). One surface is smooth and white. The other surface is pale purple with slightly ragged edges. Tax Assistant sections are submitted in A1. Melissa Oviedo MD 08/19/2021 13:59 The remaining specimen is submitted entirely in A2-A3. Melissa Oviedo MD 08/23/2021 13:23 08/24/2021 15:38 [facility] Resident/Claus w: Melissa Oviedo MD 08/24/2021 15:38 [facility] Performing Lab [facility] 08/24/2021 15:38 [facility] Scanned Images 08/24/2021 15:38 [facility] Tissue ENTIRE OVARY / Unknown 08/18/2021 9:11 EDT 08/18/2021 19:20 EDT Sarah Alanis PATHOLOGY ORDERABLES [facility] [address] [place] [address] documented in this encounter Visit Diagnoses Diagnosis Other specified postprocedural states documented in this encounter Care Teams Administrative Project Coordinator Relationship Specialty Start Date End Date Unknown, Provider, PCP - General 07/16/21 documented as of this encounter
--- OUTSIDE RECORDS SUMMARY | 2023-11-03 15:22 | XMS_ITS | Encounter Summary ---
Author Organization [facility] Address [address] [place] [address] Care Team Providers Care Well Logging Operator Mud Analysis Name Role Phone Unknown, Provider Primary Care Provider Encounter Details Date Type Department Care Team (Late st Contact Info) Description 01/31/2022 Lab Requisition [facility] Pathology & Laboratory Medicine - [facility] [address] [place] [address] Outr Resulting Lab, Provider Social History Tobacco [...] Procedure Name Priority Date/Time Associated Diagnosis Comments HOLD SST Today 01/31/2022 12:00 EDT HOLD SST Today 01/31/2022 12:00 EDT PROLACTIN Today 01/31/2022 12:00 EDT DHEA SULFATE Today 01/31/2022 12:00 EDT FSH Today 01/31/2022 12:00 EDT documented in this encounter Results * HOLD SST (01/31/2022 12:00 EDT) Hold Hold 01/31/2022 18:01 EDT [facility] Blood VENOUS BLOOD / Unknown 01/31/2022 12:00 EDT 01/31/2022 16:53 EDT Provider Outr Resulting Lab LAB INFO SER VICE AND SUPPORT & PHONE RESULT Performing Organization Address City/[facility]/ZIP Co de Phone Number [facility] [address] [place] [address] * HOLD SST (01/31/2022 12:00 EDT) Hold Hold 01/31/2022 18:01 EDT [facility] Blood VENOUS BLOOD / Unknown 01/31/2022 12:00 EDT 01/31/2022 16:53 EDT Provider Outr Resulting Lab LAB INFO SER VICE AND SUPPORT & PHONE RESULT Performing Organization Address [facility] de Phone Number [facility] [address] [place] [address] * FSH (01/31/2022 12:00 EDT) FSH 5.5 See Note mIU/mL 01/31/2022 18:05 EDT [facility] Blood VENOUS BLOOD / Unknown 01/31/2022 12:00 EDT 01/31/2022 16:53 EDT Narrative [facility] - 01/31/2022 18:05 EDT NOTE: Female FSH Reference Ranges (Menstruating): PHYSIOLOGICAL STATUS ? REFERENCE RANGE ? Follicular (-12 to -4 days): ?? 2.5 - 10.2 mIU/mL Midcycle (-3 to +2 days): ?3.4 - 33.4 mIU/mL Luteal (+4 to +12 days): ? 1.5 - 9.1 mIU/mL Postmenopausal: ?23.0 - 116.3 mIU/mL Reference Ranges for pediatric non-menstruating female patients have not been established. Provider Outr Resulting Lab CHEMISTRY & BLOOD GAS ORDERABLES Performing Organization Address [facility] Co de Phone Number [facility] [address] [place] [address] * PROLACTIN (01/31/2022 12:00 EDT) Prolactin 7.9 See Note ng/mL 01/31/2022 18:05 EDT [facility] Comment: NOTE: Female Reference Ranges: PHYSIOLOGICAL STATUS ?REFERENCE RANGE ? Postmenopausal ?1.8 - 20.3 ng/mL ?9.7 - 208.5 ng/mL Non- ?2.8 - 29.2 ng/mL Blood VENOUS BLOOD / Unknown 01/31/2022 12:00 EDT 01/31/2022 16:53 EDT Provider Outr Resulting Lab CHEMISTRY & BLOOD GAS ORDERABLES Performing Organization Address [facility] Co de Phone Number [facility] [address] [place] [address] * DHEA SULFATE (01/31/2022 12:00 EDT) DHEA Sulfate 174 61 - 494 ug/dL 02/02/2022 9:43 EDT [facility] Blood VENOUS BLOOD / Unknown 01/31/2022 12:00 EDT 01/31/2022 16:53 EDT Provider Outr Resulting Lab CHEMISTRY & BLOOD GAS ORDERABLES [facility] [address] [place] [address] documented in this encounter Visit Diagnoses Not on filedocumented in this encounter Care Teams Well Logging Operator Mud Analysis Relationship Specialty Start Date End Date Unknown, Provider, PCP - General 07/16/21 documented as of this encounter
--- OUTSIDE RECORDS SUMMARY | 2023-11-03 15:22 | XMS_ITS | Encounter Summary ---
Author Organization [facility] Address [facility] [place] [address] Care Team Providers Care Heel Lining Paster Name Role Phone Jonathan Penaloza MD Primary Care Provider Encounter Details Date Type Department Care Team (Latest Contact Info) Description 06/21/2016 - 06/21/2016 12:04 AM EST Hospital Encounter [place] [address] Dave Keys MD [facility] [place] [address] Pain Discharge Disposition: Home Social History Tobacco [...] Associated Diagnosis Comments FILM LIBRARY STORAGE ONLY DX LOWER EXTREMITY STAT 06/21/2016 12:00 AM EST Pain documented in this encounter Results * Film Library- Storage Only DX Lower Extremity (06/21/2016 12:00 AM EST) Narrative [facility] - 06/22/2016 2:41 PM EST This exam is for storage only and is auto-finalizing. Dave Keys MD IMG FILM LIBRARY O RDERABLES [place], [place] documented in this encounter Visit Diagnoses Diagnosis Pain Generalized pain documented in this encounter Care Teams Heel Lining Paster Relationship Specialty Start Date End Date Jonathan Penaloza MD [address] [facility] [place] [address] PCP - General 03/09/10 documented as of this encounter
--- OUTSIDE RECORDS SUMMARY | 2023-11-03 15:22 | XMS_ITS | Encounter Summary ---
Author Organization [facility] Address [address] [place] [address] Care Team Providers Care Post Hole Digging Machine Operator Name Role Phone Unknown, Provider Primary Care Provider Encounter Details Date Type Department Care Team (Late st Contact Info) Description 12/27/[address] [facility] Pathology & Laboratory Medicine - [facility] [address] [place] [address] Outr Resulting Lab, Provider Social History Tobacco [...] Procedure Name Priority Date/Time Associated Diagnosis Comments DO NOT ORDER STANDALONE - BROAD COVID TEST Today 12/27/2019 11:11 EDT COVID-19 TESTING Routine 12/27/2019 11:1 1 EDT documented in this encounter Results * DO NOT ORDER STANDALONE - BROAD COVID TEST (12/27/2019 11:11 EDT) COVID-19 rt-PCR Result NEGATIVE Negative 12/28/2019 15:36 EDT [facility] Comment: 2019-novel Coronavirus (2019-nCoV) not detected by the qRT-PCR assay. Consider testing for other respiratory viruses or re-collecting for 2019-nCoV testing. Note: Optimum timing for peak viral levels during infections caused by 2019-nCoV have not been determined. Collection of multiple specimens from the same patient may be necessary to detect the virus. Limitations Positive results are indicative of active infection with SARS-CoV-2 but do not rule out bacterial infection or co-infection with other viruses. The agent detected may not be the definite cause of disease. In addition, detection of viral RNA may not indicate the presence of infectious virus or that SARS-CoV-2 is the causative agent for clinical symptoms. Negative results do not preclude SARS-CoV-2 infection and should not be used as the sole basis for patient management decisions. Negative results must be combined with clinical observations, patient history, and epidemiological information. False negative results may also occur if amplification inhibitors are present in the specimen or if inadequate numbers of organisms are present in the specimen. Optimum specimen types and timing for peak viral levels during infections caused by SARS-CoV-2 have not been fully determined. Collection of multiple specimens (types and time points) from the same patient may be necessary to detect the virus. The test was validated for use with upper respiratory specimens obtained via nasopharyngeal or oropharyngeal swabs in VTM, UTM, M4, M5, M6, saline, and MTM media. The performance of this test has not been established for other specimens. Specimens collected using other FDA recommended Specimen Collection Materials listed in the FDA COVID-19 [employer] communication (July 11, 2019) are processed with the caveat that they were not all validated for use with this test and the result must be interpreted in this context. Furthermore, a false negative results may occur if a specimen is improperly collected, transported or handled. If the virus mutates in the RT-PCR target region, SARS-CoV-2 may not be detected or may be detected less predictably. Inhibitors or other types of interference may produce a false negative result. An interference study evaluating the effect of common cold medications was not performed. This test is not FDA-cleared but its performance characteristics were established by our CLIA-certified, CAP-accredited, high complexity laboratory in accordance with CLIA regulations, [employer] (CAP) guidelines (Jul 04, 2019), and FDA guidance (Jun 15, 2019). This test is only for use under the Food and Drug Administration's Emergency Use Authorization. Swab ENTIRE NASOPHARYNX / Unknown 12/27/2019 11:11 EDT 12/27/2019 16:12 EDT Provider Outr Resulting Lab MICROBIOLOGY - GENERAL ORDERABLES [place] * COVID-19 TESTING (12/27/2019 11:11 EDT) [facility] COVID-19 rt-PCR Result NEGATIVE Negative 12/28/2019 18:09 EDT [facility] Comment: 2019-novel Coronavirus (2019-nCoV) not detected by the qRT-PCR assay. Consider testing for other respiratory viruses or re-collecting for 2019-nCoV testing. Note: Optimum timing for peak viral levels during infections caused by 2019-nCoV have not been determined. Collection of multiple specimens from the same patient may be necessary to detect the virus. Limitations Positive results are indicative of active infection with SARS-CoV-2 but do not rule out bacterial infection or co-infection with other viruses. The agent detected may not be the definite cause of disease. In addition, detection of viral RNA may not indicate the presence of infectious virus or that SARS-CoV-2 is the causative agent for clinical symptoms. Negative results do not preclude SARS-CoV-2 infection and should not be used as the sole basis for patient management decisions. Negative results must be combined with clinical observations, patient history, and epidemiological information. False negative results may also occur if amplification inhibitors are present in the specimen or if inadequate numbers of organisms are present in the specimen. Optimum specimen types and timing for peak viral levels during infections caused by SARS-CoV-2 have not been fully determined. Collection of multiple specimens (types and time points) from the same patient may be necessary to detect the virus. The test was validated for use with upper respiratory specimens obtained via nasopharyngeal or oropharyngeal swabs in VTM, UTM, M4, M5, M6, saline, and MTM media. The performance of this test has not been established for other specimens. Specimens collected using other FDA recommended Specimen Collection Materials listed in the FDA COVID-19 [employer] communication (July 11, 2019) are processed with the caveat that they were not all validated for use with this test and the result must be interpreted in this context. Furthermore, a false negative results may occur if a specimen is improperly collected, transported or handled. If the virus mutates in the RT-PCR target region, SARS-CoV-2 may not be detected or may be detected less predictably. Inhibitors or other types of interference may produce a false negative result. An interference study evaluating the effect of common cold medications was not performed. This test is not FDA-cleared but its performance characteristics were established by our CLIA-certified, CAP-accredited, high complexity laboratory in accordance with CLIA regulations, [employer] of [employer] (CAP) guidelines (Jul 04, 2019), and FDA guidance (Jun 15, 2019). This test is only for use under the Food and Drug Administration's Emergency Use Authorization. Performing Lab [facility] 12/28/2019 18:09 EDT [facility] Swab 12/27/2019 11:1 1 EDT 12/27/2019 16:12 EDT Provider Outr Resulting Lab MICROBIOLOGY - GENERAL ORDERABLES [facility] [address] [place] [address] [facility] [place] documented in this encounter Visit Diagnoses Not on filedocumented in this encounter Additional Health Concerns Infection Onset Date Last Indicated Resolved Time COVID-19 04/21/2021 04/21/2021 05/11/2021 22:1 5 EST documented as of this encounter Care Teams Post Hole Digging Machine Operator Relationship Specialty Start Date End Date Unknown, Provider, PCP - General 07/16/21 documented as of this encounter
--- OUTSIDE RECORDS SUMMARY | 2023-11-03 15:22 | XMS_ITS | Encounter Summary ---
Author Organization [facility] Address [address] [place] [address] Care Team Providers Care Safe And Vault Mechanic Name Role Phone Unknown, Provider Primary Care Provider Encounter Details Date Type Department Care Team (Late st Contact Info) Description 11/15/2022 Lab Requisition [facility] Pathology & Laboratory Medicine - [facility] [address] [place] [address] Outr Resulting Lab, Provider Social History Tobacco [...] Comments CHLAMYDIA/N. GONORRHOEAE AMPLIFIED NUCLEIC ACID Routine 11/15/2022 13:30 EDT documented in this encounter Results * CHLAMYDIA/N. GONORRHOEAE AMPLIFIED RNA (11/15/2022 13:30 EDT) Neisseria gonorrhoeae Result Negative Negative 11/16/2022 13:46 EDT [facility] Chlamydia trachomatis Result Negative Negative 11/16/2022 13:46 EDT [facility] Urine URINE / Unknown 11/15/2022 1 3:30 EDT 11/15/2022 22:02 EDT Narrative [facility] - 11/16/2022 13:46 EDT A first catch urine specimen is acceptable for detection of Gonorrhea and Chlamydia, but might detect up to 10% fewer infections when compared with vaginal and endocervical swab samples. Provider Outr Resulting Lab MICROBIOLOGY - GENERAL ORDERABLES [facility] [address] [place] [address] documented in this encounter Visit Diagnoses Not on filedocumented in this encounter Care Teams Safe And Vault Mechanic Relationship Specialty Start Date End Date Unknown, Provider, PCP - General 07/16/21 documented as of this encounter
--- OUTSIDE RECORDS SUMMARY | 2023-11-03 15:22 | XMS_ITS | Encounter Summary ---
Author Organization [facility] Address [address] [place] [address] Care Team Providers Care Preparer Name Role Phone Unknown, Provider Primary Care Provider Reason for Visit * Reason Comments New Patient Visit eczema on hands, bum py fingernails * Consult (Routine) - Authorization Not Required Specialty Diagnoses / Procedures Referred By Reynold carty Referred To Contact Dermatology Diagnoses Dermatitis [address] [place] [address] [place] [address] [address] [place] [address] Referral ID Status Reason Start Date Expiration Date Visits Requested Visits Authorized [id number] Authorization Not Required 1 1 Encounter Details Date Type Department Care Team (Late st Contact Info) Description 09/27/2021 10:30 EDT Office Visit [facility] Dermatology [address] [address] Shayy Robert MD [address] [place] [address], [address] [place] [phone] Hand dermatitis (Primary Dx) Social History Tobacco Use Types Packs/Day Years Used Date Smoking Tobacco: Never Smokeless Tobacco: Never Interpersonal Safety Answer Date Record ed Physically Hurt Never 03/10/2020 Verbally Threaten Not on file 03/10/2020 Sex and Gender Information Value Date Recorded Sex Assigned at Not on file Gender Identity Not on file Sexual Orientation Not on file documented as of this encounter Patient Instructions * Patient Instructions* Shayy Robert - 09/27/2021 10:30 EDT Images from the original note were not included. My favorite moisturizer for hands is: Neutrogena Luxembourger formula I'm hoping you'll get the tacrolimus ointment (this is the non-steroid anti inflammatory ointment).If you do get this, use it Mon-Fri Hopefully you will also be able to get the clobetasol ointment and you can use this on weekends. If you only get the clobetasol, use 2x per day. documented in this encounter Ordered Prescriptions Prescription Sig Dispensed Refills Start Date End Da te clobetasoL (TEMOVATE) 0.05 % ointment Apply topically to affected area 2 times daily. To the hands. Do not apply to face, armpit or groin. 60 g 3 09/27/2021 TACRolimus (PROTOPIC) 0.1 % ointment Apply topically to affected area 2 times daily. For the hands 60 g 5 09/27/2021 documented in this encounter Progress Notes * Shayy Robert - 09/27/2021 1030 EDT Dermatology Outpatient Visit Note Dermatologic History: No specialty comments available. Last Dermatology office visit: New patient visit SUBJECTIVE Ms. Browning is a 21 y.o. female who presents for a chief complaint of: New Patient Visit (eczema on hands, bumpy fingernails) Cathy is here today for hand dermatitis. This has been a problem for her since childhood, worse with scented products, water, cold, sweat, sometimes heat. Triamcinolone 0.5% cream given to her by PCP sometimes helps. Doesn't help enough if she uses it just twice per day as prescribed. Last week had cracks but started using the triamcinolone and things improved. Has an unscented Jergens lotion that she uses to moisturize her hands. Used to affect the left hand and now it's mainly the right hand that bothers her. Her brother and mother also have this problem. OBJECTIVE Ms. Browning has fair skin, dark brown hair. A focused exam of the hands and feet was performed. The examination was significant for: - Right thumb and palm: pink xerotic scaling plaque LIBERTAD was negative for fungal organisms ASSESSMENT/PLAN - Hand dermatitis, moderate: Not well controlled. Discussed that with her family history and the negative LIBERTAD, most likely eczematous. Recommended treating with stronger topical steroid and topical calcineurin inhibitor. She lives in [place], so light therapy is not an option for her. - Prescribed clobetasol 0.05% ointment to apply BID on weekends to the hands followed by thick moisturizer such as Neutrogena Luxembourger formula. - Prescribed tacrolimus 0.1% ointment to apply BID to the hands on weekdays - If tacrolimus not approved, recommended clobetasol 7 days/week - Encouraged moisturization after each time she washes her hands She will f/u as planned or in the interim should problems arise. Return in about 3 months (around 12/28/2021) for zoom hand dermatitis. Shayy Robert MD 09/27/2021 11:59 documented in this encounter Plan of Treatment Not on file documented as of this encounter Visit Diagnoses Diagnosis Hand dermatitis- Primary Contact dermatitis and other eczema, due to unspecified cause documented in this encounter Discontinued Medications Medication Sig Discontinue Reason Start Date End Da te Triamcinolone Acetonide 0.05 % ointment Apply topically 2 times daily. Alternate therapy 09/27/2021 documented as of this encounter Historical Medications * This list may reflect changes made after this encounter. Medication Sig Dispensed Refills Start Date End Date triamcinolone (ARISTOCORT) 0.5 % cream APPLY TOPICALLY TWO TIMES A DAY 09/23/2021 Triamcinolone Acetonide 0.05 % ointment Apply topically 2 times daily. 09/27/2021 added in this encounter Care Teams Preparer Relationship Specialty Start Date End Date Unknown, Provider, PCP - General 07/16/21 documented as of this encounter
--- OUTSIDE RECORDS SUMMARY | 2023-11-03 15:22 | XMS_ITS | Encounter Summary ---
Author Organization [facility] Address [address] [place] [address] Care Team Providers Care Mock Up Maker Name Role Phone Unknown, Provider Primary Care Provider Encounter Details Date Type Department Care Team (Late st Contact Info) Description 08/19/2021 Lab Requisition [facility] Pathology & Laboratory Medicine - [facility] [address] [place] [address] Sarah Alanis [address] [place] [address] [place] [phone] Encounter for other general examination Social History Tobacco Use Types Packs/Day Years [...] Procedure Name Priority Date/Time Associated Diagnosis Comments NON SILVER RECOVERY OPERATOR/FNA CYTOLOGY Today 08/18/2021 9:30 EDT Encounter for other general examination documented in this encounter Results * NON SILVER RECOVERY OPERATOR/FNA CYTOLOGY (08/18/2021 9:30 EDT) Note to Patient The following pathology results have been interpreted by your pathologist and may be available to you before your health provider has had the opportunity to review them. Please allow time for your provider to receive these results and explore management options, if applicable. 08/19/2021 16:25 EDT [facility] Final Diagnosis A. CYST FLUID, LEFT OVARY, CYTOLOGIC EVALUATION: - Degenerated cellular debris present - Rare intact macrophages present, consistent with cyst contents. 08/19/2021 16:25 [facility] Attestation By the signature below, the attending physician certifies that they have personally conducted a gross and/or microscopic examination of the described specimens and rendered or confirmed the above diagnosis. 08/19/2021 16:25 EDT [facility] at 1625 Clinical History Left ovarian cyst 08/19/2021 16:25 EDT [facility] Gross Description A. 58cc's of clear yellow fluid were received and processed by selective cellular enhancement technique. 08/19/2021 16:25 [facility] Performing Lab [facility] 08/19/2021 16:25 [facility] Scanned Images 08/19/2021 16:25 [facility] Fluid BODY FLUID / Unknown 08/18/2021 9:30 EDT 08/19/2021 7:53 EDT Sarah Alanis PATHOLOGY ORDERABLES [facility] [address] [place] [address] documented in this encounter Visit Diagnoses Diagnosis Encounter for other general examination documented in this encounter Care Teams Mock Up Maker Relationship Specialty Start Date End Date Unknown, Provider, PCP - General 07/16/21 documented as of this encounter
[2023-11-03 21:11] LABS: HCT 44.1 % (36.0-46.0); HGB 14.7 g/dL (11.2-15.7); MCH 28.7 pg (27.0-33.0); MCHC 33.3 % (32.0-36.0); MCV 86 fL (80-95); MPV 10.1 fL (8.0-11.0); Platelet Count 382 10^3/uL (130-400); RBC 5.12 10^6/uL (3.93-5.22); RDW 11.9 % (11.7-14.6); RDW-SD 37.6 fL; WBC 9.31 10^3/uL (4.4-10.8)
[2023-11-03 21:35] LABS: ALT 25 U/L (14-59); AST 19 U/L (15-37); Albumin 4.2 g/dL (3.4-5.0); Alkaline Phosphatase 100 U/L (46-116); Anion Gap 10.5 mmol/L (3-11); BUN 5 mg/dL (7-18); CO2 26.5 mmol/L (21.0-32.0); CREATININE 0.8 mg/dL (0.55-1.02); Calcium 9.4 mg/dL (8.5-10.1); Chloride 104 mmol/L (98-107); Estimated GFR 107.44 (mL/min/1.73m2); Ferritin 19 ng/mL (8-252); Glucose 92 mg/dL (74-106); Potassium 4.4 mmol/L (3.5-5.1); Sodium 141 mmol/L (136-145); TSH (W/Ref FT4) 1.24 uIU/mL (0.36-3.74); Total Protein 7.5 g/dL (6.4-8.2)
[2023-11-03 22:01] LABS: Iron 140 ug/dL (50-170); Total Iron Binding Capacity 391 ug/dL (250-450); Transferrin Sat 36 % (15-50)
== END 2023-11-03 15:17 | disposition home or self-care (01) ==
LOC: NCHCN 15:16
PROVIDERS: PCP Nurse Practitioner Family; Visit Provider Nurse Practitioner Family
DX: G47.9 Sleep disorder, unspecified (principal)
CPT/HCPCS: 80053; 85027; 82728; 83540; 83550; 84443

== ENCOUNTER 2023-11-21 21:45 | Outpatient (REF) | payer MEDICAID, SELFPAY ==
--- OUTSIDE RECORDS SUMMARY | 2023-11-21 21:47 | XMS_ITS | Encounter Summary ---
Author Organization [facility] Address [address] [place] [id number] Care Team Providers Care Organizational Research Consultant Name Role Phone Unknown, Provider Primary Care Provider Encounter Details Date Type Department Care Team (Late st Contact Info) Description 12/08/2022 Lab Requisition [facility] Pathology & Laboratory Medicine - [facility] [address] [place] [address] Outr Resulting Lab, Provider Social History Tobacco [...] Neg and Giardia Antigen Neg 11:04 EDT [facility] Feces SPECIMEN FROM RECTUM / Unknown 12/07/2022 15:46 EDT 12/08/2022 17:35 EDT Provider Outr Resulting Lab MICROBIOLOGY - GENERAL ORDERABLES [facility] [address] [place] [address] * FECAL BACTERIAL PATHOGENS BY PCR (12/07/2022 15:46 EDT) Salmonella PCR Negative Negative 12/09/2022 0:32 EDT [facility] Shigella/Enteroin vasive E. coli Negative Negative 12/09/2022 0:32 EDT [facility] HN LAB CAMPYLOBACTER PCR Negative Negative 12/09/2022 0:32 EDT [facility] Shiga Toxin PCR Negative Negative 0:32 EDT [facility] Feces SPECIMEN FROM RECTUM / Unknown 12/07/2022 15:46 EDT 12/08/2022 17:35 EDT Provider Outr Resulting Lab MICROBIOLOGY - GENERAL ORDERABLES Performing Organization Address [facility]/ZIP Co de Phone Number [facility] [address] [place] [address] * OVA/PARASITE EXAM (12/07/2022 15:46 EDT) Parasite No ova and parasites seen. 12/09/2022 13:48 EDT [facility] Feces SPECIMEN FROM RECTUM / Unknown 12/07/2022 15:46 EDT 12/08/2022 17:35 EDT Narrative [facility] - 12/09/2022 13:48 EDT (If Cryptosporidium, Cyclospora, or Microsporidium are suspected, specific tests must be requested.) Single negative specimen does not rule out the possibility of a parasitic infection. Provider Outr Resulting Lab MICROBIOLOGY - GENERAL ORDERABLES Performing Organization Address City/[facility]/ZIP Co de Phone Number [facility] [address] [place] [address] documented in this encounter Visit Diagnoses Not on filedocumented in this encounter Care Teams Organizational Research Consultant Relationship Specialty Start Date End Date Unknown, Provider, PCP - General 07/16/21 documented as of this encounter
--- OUTSIDE RECORDS SUMMARY | 2023-11-21 21:47 | XMS_ITS | Encounter Summary ---
Author Organization [facility] Address [address] [place] [address] Care Team Providers Care Business Professor Name Role Phone Unavailable Primary Care Provider Unavailabl e Encounter Details Date Type Department Care Team (Late st Contact Info) Description 09/05/2020 Results Only [facility] [address] [place] [id number] Lynn Dahl MD [address] [place] [address] Social History Tobacco Use Types [...] 141 136 - 145 mEq/L 09/05/2020 16:35 [facility] Potassium 3.1(L) 3.5 - 5.1 mEq/L 09/05/2020 16:35 [facility] Chloride 104 96 - 107 mEq/L 09/05/2020 16:35 [facility] CO2 Total 27.3 21 - 32 mEq/L 09/05/2020 16:35 [facility] Anion Gap 9.7 mEq/L 09/05/2020 16:35 [facility] BUN 12 7 - 25 mg/dl 09/05/2020 16:35 [facility] Creatinine 0.80 0.55 - 1.02 mg/dl 09/05/2020 16:35 [facility] Estimated GFR >60 >60 09/05/2020 16:35 [facility] Comment: EGFR UNITS: mL/min/1.73 m 2 CKD-EPI Equation used to calculate. Glucose 78 74 - 106 mg/dl 09/05/2020 16:35 [facility] Calcium 8.9 8.5 - 10.1 mg/dl 09/05/2020 16:35 [facility] 09/05/2020 16:1 6 EDT 09/05/2020 16:16 [facility] Narrative [facility] - 09/05/2020 16:47 EDT Sample collected at time of saline lock or IV placement. Lynn Dahl MD CHEMISTRY & BLOOD G ORDERABLES [facility] [address] [place] [address] * COMPLETE BLOOD COUNT AND DIFFERENTIAL (09/05/2020 16:16 EDT) WBC 9.6 4.0 - 10.5 10 3/uL 09/05/2020 16:32 [facility] RBC 4.66 4.20 - 5.40 10 6/uL 09/05/2020 16:32 [facility] Hemoglobin 13.2 12.5 - 16.0 g/dL 09/05/2020 16:32 [facility] HCT 39.5 37.0 - 47.0 % 09/05/2020 16:32 [facility] MCV 84.8 78 - 100 fL 09/05/2020 16:32 [facility] MCH 28.3 27 - 31 pg 09/05/2020 16:32 [facility] MCHC 33.4 32 - 37 g/dL 09/05/2020 16:32 [facility] RDW-CV - PMC 11.7 <14.7 % 09/05/2020 16:32 [facility] PLATELET COUNT - PMC 344 150 - 450 10 3/uL 09/05/2020 16:32 [facility] MPV 9.8 9.2 - 12.0 fL 09/05/2020 16:32 [facility] NEUTROPHILS % (AUTO) - PMC 61.8 % 09/05/2020 16:32 [facility] LYMPHOCYTES % (AUTO) - PMC 29.6 % 09/05/2020 16:32 [facility] MONOCYTES % (AUTO) - PMC 7.2 % 09/05/2020 16:32 [facility] EOSINOPHILS % (AUTO) - PMC 0.8 % 09/05/2020 16:32 [facility] BASOPHILS % (AUTO) - PMC 0.4 % 09/05/2020 16:32 [facility] Immature Granulocyte % (Auto) 0.2 % 09/05/2020 16:32 [facility] NUCLEATED RBC % (AUTO) - PMC 0.0 % 09/05/2020 16:32 [facility] NEUTROPHILS # (AUTO) - PMC 5.9 1.5 - 6.6 10 3/uL 09/05/2020 16:32 [facility] LYMPHOCYTES # (AUTO) - PMC 2.8 1.0 - 3.5 10 3/uL 09/05/2020 16:32 [facility] MONOCYTES # (AUTO) - PMC 0.7 <1.0 10 3/uL 09/05/2020 16:32 EDT [facility] EOSINOPHILS # (AUTO) - PMC 0.1 <0.7 10 3/uL 09/05/2020 16:32 T [facility] Absolute Immature Granulocyte 0.02 <0.06 10 3/uL 09/05/2020 16:32 T [facility] DIFFERENTIAL METHOD Auto Differential 09/05/2020 16:17 T [facility] 09/05/2020 16:1 6 EDT 09/05/2020 16:17 EDT [facility] - 09/05/2020 16:32 EDT Sample collected at time of saline lock or IV placement. Lynn Dahl MD PACKAGES & DNA PROB E ORDERABLES Performing Organization Address City/[facility]/ZIP Co de Phone Number [facility] [address] [place] [phone] * (ABNORMAL) UA MICROSCOPIC - PMC (09/05/2020 16:01 EDT) URINE RBC - PMC 3-10(A) 0 - 2 hpf 16:18 [facility] URINE WBC - PMC None seen 0 - 3 hpf 16:18 [facility] URINE BACTERIA - PMC None Seen None Seen hpf 09/05/2020 16:18 [facility] URINE MUCUS - PMC Present lpf 09/05/2020 16:18 [facility] URINE SQUAMOUS EPITHELIAL CELL - PMC Few None-Few hpf 09/05/2020 16:18 T [facility] 09/05/2020 16:0 1 EDT 09/05/2020 16:06 EDT [facility] - 09/05/2020 16:18 EDT Collection Method Unknown Lynn Dahl MD CHEMISTRY & BLOOD G ORDERABLES Performing Organization Address [facility]/ZIP Co de Phone Number [facility] [address] [place] [phone] * TEST, URINE (09/05/2020 16:01 EDT) Test, Urine Negative Negative 09/05/2020 16:17 [facility] 09/05/2020 16:0 1 EDT 09/05/2020 16:06 EDT Narrative [facility] - 09/05/2020 16:18 EDT Collection Method Unknown Lynn Dahl MD URINALYSIS ORDERABL ES [facility] [address] [place] [address] * (ABNORMAL) UA (CULTURE IF POSITIVE) - PMC (09/05/2020 16:01 EDT) [facility] URINE COLOR - PMC Yellow Straw/Yelow 09/05/2020 16:09 [facility] URINE APPEARANCE - PMC Clear Clr/Hazy 09/05/2020 16:09 [facility] URINE PH - PMC 6.0 4.6 - 8.0 09/05/2020 16:09 [facility] UR SPECIFIC GRAVITY (REFRACTOM) - PMC 1.025 1.001 - 1.035 09/05/2020 16:11 [facility] URINE PROTEIN - PMC Negative Negative mg/dL 09/05/2020 16:09 [facility] URINE GLUCOSE (UA) - PMC Negative Negative mg/dL 09/05/2020 16:09 [facility] URINE KETONES - PMC Negative Negative mg/dL 09/05/2020 16:09 [facility] URINE BILIRUBIN - PMC Negative Negative 09/05/2020 16:09 [facility] URINE BLOOD - PMC Moderate(A) Negative 09/05/2020 16:09 [facility] URINE UROBILINOGEN - PMC 0.2 0.2 - 1.0 E.U./dL 09/05/2020 16:09 [facility] URINE NITRATE - PMC Negative Negative 09/05/2020 16:09 [facility] URINE LEUKOCYTE ESTERASE - PMC Negative Negative 09/05/2020 16:09 [facility] URINE CULTURE COMMENTS - PMC CRITERIA NOT MET 09/05/2020 16:18 EDT [facility] Comment:Specimen does not me et criteria for culture. 09/05/2020 16:0 1 EDT 09/05/2020 16:06 EDT Narrative [facility] - 09/05/2020 16:18 EDT Collection Method Unknown Lynn Dahl MD MICROBIOLOGY - [facility] ORDERABLES Performing Organization Address City/State/[facility] Co de Phone Number [facility] [address] [place] [address] documented in this encounter Visit Diagnoses Not on filedocumented in this encounter
--- OUTSIDE RECORDS SUMMARY | 2023-11-21 21:47 | XMS_ITS | Encounter Summary ---
Author Organization [facility] Address [address] [place] [address] Care Team Providers Care Powertrain Calibration Engineer Name Role Phone Unknown, Provider Primary Care Provider Encounter Details Date Type Department Care Team (Late st Contact Info) Description 11/16/2021 Lab Requisition [facility] Pathology & Laboratory Medicine - [facility] [address] [place] [address] Outr Resulting Lab, Provider Social History Tobacco [...] Surface Ag Negative Negative 11/17/2021 10:48 EDT [facility] Hep C Antibody Negative Negative 11/17/2021 10:48 EDT [facility] Hepatitis A Antibody, IgM Negative Negative 11/17/2021 10:48 EDT [facility] Comment:The results of this assay can be falsely lowered due to the consumption of Biotin. Hepatitis B Core Ab, Total Negative Negative 11/17/2021 10:48 EDT [facility] Blood VENOUS BLOOD / Unknown 11/15/2021 22:18 EDT 11/16/2021 17:20 EDT Provider Outr Resulting Lab CHEMISTRY & BLOOD GAS ORDERABLES [facility] [address] [place] [address] documented in this encounter Visit Diagnoses Not on filedocumented in this encounter Care Teams Powertrain Calibration Engineer Relationship Specialty Start Date End Date Unknown, Provider, PCP - General 07/16/21 documented as of this encounter
--- OUTSIDE RECORDS SUMMARY | 2023-11-21 21:47 | XMS_ITS | Encounter Summary ---
Author Organization [facility] Address [address] [place] [address] Care Team Providers Care Traffic Control Operator Name Role Phone Unknown, Provider Primary Care Provider Encounter Details Date Type Department Care Team (Late st Contact Info) Description 04/22/[address] [facility] Pathology & Laboratory Medicine - [facility] [address] [place] [address] Outr Resulting Lab, Provider Social History Tobacco [...] Outr Resulting Lab MICROBIOLOGY - GENERAL ORDERABLES [facility] [address] [place] [address] * (ABNORMAL) COVID-19 TESTING (04/21/2021 16:27 EST) COVID-19 rt-PCR Result Positive( AA) Negative 04/23/2021 16:23 EST [facility] Comment: This test has [...] testing. This test is based on the [facility] COVID-19 Emergency Use Authorization (EUA) assay, with minor modification as defined by the FDA Performed on the [employer] Document Management softwareo 7 Flex RT-PCR System. Performing Lab [facility] 04/23/2021 16:23 EST [facility] Swab 04/21/2021 16:2 7 EST 04/22/2021 17:45 EST Provider Outr Resulting Lab MICROBIOLOGY - GENERAL ORDERABLES [facility] [address] [place] [address] documented in this encounter Visit Diagnoses Not on filedocumented in this encounter Additional Health Concerns Infection Onset Date Last Indicated Resolved Time COVID-19 04/21/2021 04/21/2021 05/11/2021 22:1 5 EST documented as of this encounter Care Teams Traffic Control Operator Relationship Specialty Start Date End Date Unknown, Provider, PCP - General 07/16/21 documented as of this encounter
--- OUTSIDE RECORDS SUMMARY | 2023-11-21 21:47 | XMS_ITS | Encounter Summary ---
Author Organization [facility] Address [address] [place] [address] Care Team Providers Care Dissolver Operator Name Role Phone Unknown, Provider Primary Care Provider [phone] Encounter Details Date Type Department Care Team (Late st Contact Info) Description 08/18/2021 Lab Requisition [facility] Pathology & Laboratory Medicine - [facility] [place] [facility] [address] [place] [address] [address] Alan[address] [place] [address] [place] [phone] Other specified postprocedural states Social History Tobacco [...] management options, if applicable. 08/24/2021 15:38 EDT [facility] Final Diagnosis A. 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 See comment. 08/24/2021 15:38 [facility] Diagnosis Comment The extent of cauterization of the cyst lining limits interpretation. No atypical epithelial proliferation is seen. 08/24/2021 15:38 [facility] Attestation There was significant resident/fellow involvement in the diagnostic evaluation of this case. By the signature below, the attending physician certifies that they have personally conducted a gross and/or microscopic examination of the described specimens and rendered or confirmed the above diagnosis. 08/24/2021 15:38 [facility] at 1538 Clinical History Cyst of left ovary 08/24/2021 15:38 [facility] Gross Description A. Received in formalin labelled with proper patient identification (initials B, D) and ovarian tissue and cyst wall is a section of ovary (2.5 x 2.0 x 1.2 cm). One surface is smooth and white. The other surface is pale purple with slightly ragged edges. Brake Lining Finisher Asbestos sections are submitted in A1. Melissa Oviedo MD 08/19/2021 13:59 The remaining specimen is submitted entirely in A2-A3. Melissa Oviedo MD 08/23/2021 13:23 08/24/2021 15:38 [facility] Resident/Claus w: Melissa Oviedo MD 08/24/2021 15:38 [facility] Performing Lab [facility] 08/24/2021 15:38 [facility] Scanned Images 08/24/2021 15:38 [facility] Tissue ENTIRE OVARY / Unknown 08/18/2021 9:11 EDT 08/18/2021 19:20 EDT Sarah Alanis PATHOLOGY ORDERABLES [facility] [address] [place] [address] documented in this encounter Visit Diagnoses Diagnosis Other specified postprocedural states documented in this encounter Care Teams Dissolver Operator Relationship Specialty Start Date End Date Unknown, Provider, PCP - General 07/16/21 documented as of this encounter
--- OUTSIDE RECORDS SUMMARY | 2023-11-21 21:47 | XMS_ITS | Encounter Summary ---
Author Organization [facility] Address [address] [place] [phone] Care Team Providers Care Sludge Mill Operator Name Role Phone Unknown, Provider Primary Care Provider Encounter Details Date Type Department Care Team (Late st Contact Info) Description 11/15/2022 Lab Requisition [facility] Pathology & Laboratory Medicine - [facility] [address] [place] [address] Outr Resulting Lab, Provider Social History Tobacco [...] gonorrhoeae Result Negative Negative 11/16/2022 13:46 EDT [facility] Chlamydia trachomatis Result Negative Negative 11/16/2022 13:46 EDT [facility] Urine URINE / Unknown 11/15/2022 1 3:30 EDT 11/15/2022 22:02 EDT Narrative [facility] - 11/16/2022 13:46 EDT A first catch urine specimen is acceptable for detection of Gonorrhea and Chlamydia, but might detect up to 10% fewer infections when compared with vaginal and endocervical swab samples. Provider Outr Resulting Lab MICROBIOLOGY - GENERAL ORDERABLES [facility] [address] [place] [address] documented in this encounter Visit Diagnoses Not on filedocumented in this encounter Care Teams Sludge Mill Operator Relationship Specialty Start Date End Date Unknown, Provider, PCP - General 07/16/21 documented as of this encounter
--- OUTSIDE RECORDS SUMMARY | 2023-11-21 21:47 | XMS_ITS | Encounter Summary ---
Author Organization [facility] Address [address] [place] [address] Care Team Providers Care Special Effects Artist Name Role Phone Unknown, Provider Primary Care Provider Encounter Details Date Type Department Care Team (Late st Contact Info) Description 12/27/2019 Lab Requisition [facility] Pathology & Laboratory Medicine - [facility] [address] [place] [address] Outr Resulting Lab, Provider Social History Tobacco [...] rt-PCR Result NEGATIVE Negative 12/28/2019 15:36 EDT [facility] Comment: 2019-novel Coronavirus (2019-nCoV) not [...] in accordance with CLIA regulations, [employer] (CAP) guidelines (Jul 04, 2019), and FDA guidance (Jun 15, 2019). This test is only for use under the Food and Drug Administration's Emergency Use Authorization. Swab ENTIRE NASOPHARYNX / Unknown 12/27/2019 11:11 EDT 12/27/2019 16:12 EDT Provider Outr Resulting Lab MICROBIOLOGY - GENERAL ORDERABLES [facility] [place] * COVID-19 TESTING (12/27/2019 11:11 EDT) [facility] COVID-19 rt-PCR Result NEGATIVE Negative 12/28/2019 18:09 EDT [facility] Comment: 2019-novel Coronavirus (2019-nCoV) not detected [...] in accordance with CLIA regulations, [employer] (CAP) guidelines (Jul 04, 2019), and FDA guidance (Jun 15, 2019). This test is only for use under the Food and Drug Administration's Emergency Use Authorization. Performing Lab [facility] 12/28/2019 18:09 EDT [facility] Swab 12/27/2019 11:1 1 EDT 12/27/2019 16:12 EDT Provider Outr Resulting Lab MICROBIOLOGY - GENERAL ORDERABLES [facility] [address] [place] [address] [facility] [place] documented in this encounter Visit Diagnoses Not on filedocumented in this encounter Additional Health Concerns Infection Onset Date Last Indicated Resolved Time COVID-19 04/21/2021 04/21/2021 05/11/2021 22:1 5 EST documented as of this encounter Care Teams Special Effects Artist Relationship Specialty Start Date End Date Unknown, Provider, PCP - General 07/16/21 documented as of this encounter
--- OUTSIDE RECORDS SUMMARY | 2023-11-21 21:47 | XMS_ITS | Encounter Summary ---
Author Organization [facility] Address [address] [place] [address] Care Team Providers Care Media Services Director Name Role Phone Unknown, Provider Primary Care Provider Encounter Details Date Type Department Care Team (Late st Contact Info) Description 01/31/2022 Lab Requisition [facility] Pathology & Laboratory Medicine - [facility] [address] [place] [address] Outr Resulting Lab, Provider Social History Tobacco [...] 12:00 EDT) Hold Hold 01/31/2022 18:01 EDT [facility] Blood VENOUS BLOOD / Unknown 01/31/2022 12:00 EDT 01/31/2022 16:53 EDT Provider Outr Resulting Lab LAB INFO SER VICE AND SUPPORT & PHONE RESULT Performing Organization Address City/[facility]/ZIP Co de Phone Number [facility] [address] [place] [address] * HOLD SST (01/31/2022 12:00 EDT) Hold Hold 01/31/2022 18:01 EDT [facility] Blood VENOUS BLOOD / Unknown 01/31/2022 12:00 EDT 01/31/2022 16:53 EDT Provider Outr Resulting Lab LAB INFO SER VICE AND SUPPORT & PHONE RESULT Performing Organization Address [facility] de Phone Number [facility] [address] [place] [address] * FSH (01/31/2022 12:00 EDT) FSH 5.5 See Note mIU/mL 01/31/2022 18:05 EDT [facility] Blood VENOUS BLOOD / Unknown 01/31/2022 12:00 EDT 01/31/2022 16:53 EDT Narrative [facility] - 01/31/2022 18:05 EDT [...] & BLOOD GAS ORDERABLES Performing Organization Address [facility] Co de Phone Number [facility] [address] [place] [address] * PROLACTIN (01/31/2022 12:00 EDT) Prolactin 7.9 See Note ng/mL 01/31/2022 18:05 EDT [facility] Comment: NOTE: Female Reference Ranges: PHYSIOLOGICAL STATUS ?REFERENCE RANGE ? Postmenopausal ?1.8 - 20.3 ng/mL ?9.7 - 208.5 ng/mL Non- ?2.8 - 29.2 ng/mL Blood VENOUS BLOOD / Unknown 01/31/2022 12:00 EDT 01/31/2022 16:53 EDT Provider Outr Resulting Lab CHEMISTRY & BLOOD GAS ORDERABLES Performing Organization Address [facility] Co de Phone Number [facility] [address] [place] [address] * DHEA SULFATE (01/31/2022 12:00 EDT) DHEA Sulfate 174 61 - 494 ug/dL 02/02/2022 9:43 EDT [facility] Blood VENOUS BLOOD / Unknown 01/31/2022 12:00 EDT 01/31/2022 16:53 EDT Provider Outr Resulting Lab CHEMISTRY & BLOOD GAS ORDERABLES [facility] [address] [place] [address] documented in this encounter Visit Diagnoses Not on filedocumented in this encounter Care Teams Media Services Director Relationship Specialty Start Date End Date Unknown, Provider, PCP - General 07/16/21 documented as of this encounter
--- OUTSIDE RECORDS SUMMARY | 2023-11-21 21:47 | XMS_ITS | Encounter Summary ---
Author Organization [facility] Address [address] [place] [address] Care Team Providers Care Tire Adjuster Name Role Phone Unavailable Primary Care Provider Unavailabl e Reason for Visit * Reason Onset Date Comments Appointment Related 05/21/2021 Encounter Details Date Type Department Care Team (Late st Contact Info) Description 05/21/2021 Telephone [facility] Dermatology [address] [id number] Shayy Robert MD [address] [place] [address], [address] [place] [address] Appointment Related Social History Tobacco [...]
--- OUTSIDE RECORDS SUMMARY | 2023-11-21 21:47 | XMS_ITS | Clinical Summary ---
Author Organization [facility] [place] [address] Care Team Providers Care Mines Safety Engineer Name Role Phone Jonathan Penaloza MD Primary Care Provider [phone] Social History Tobacco Use Types Packs/Day Years [...] - Influenza standard series) 12/17/2023 Care Teams Mines Safety Engineer Relationship Specialty Start Date End Date Jonathan Penaloza MD [address] [facility] [place] [address] PCP - General 03/09/10
--- OUTSIDE RECORDS SUMMARY | 2023-11-21 21:47 | XMS_ITS | Encounter Summary ---
Author Organization [facility] Address [address] [place] [address] Care Team Providers Care Heavy Forger Name Role Phone Unknown, Provider Primary Care Provider [phone] Encounter Details Date Type Department Care Team (Late st Contact Info) Description 03/23/2020 Lab Requisition [facility] Pathology & Laboratory Medicine - [address] [address] Outr Resulting Lab, Provider Social History Tobacco [...] 4th Generation Negative Negative 03/24/2020 12:40 EST [facility] Comment: If acute HIV-1 infection is suspected in a high risk ??patient, submit plasma specimen for HIV-1 RNA quantitation test. Fourth Generation assay performed on the Siemens Centaur. Blood VENOUS BLOOD / Unknown 03/23/2020 10:07 EST 03/23/2020 15:45 EST Provider Outr Resulting Lab IMMUNOLOGY A ND SEROLOGY ORDERABLES [facility] [address] [place] [address] documented in this encounter Visit Diagnoses Not on filedocumented in this encounter Additional Health Concerns Infection Onset Date Last Indicated Resolved Time COVID-19 04/21/2021 04/21/2021 05/11/2021 22:1 5 EST documented as of this encounter Care Teams Heavy Forger Relationship Specialty Start Date End Date Unknown, Provider, PCP - General 07/16/21 documented as of this encounter
--- OUTSIDE RECORDS SUMMARY | 2023-11-21 21:47 | XMS_ITS | Encounter Summary ---
Author Organization [facility] Address [facility] [place] [address] Care Team Providers Care Germination Worker Name Role Phone Jonathan Penaloza MD Primary Care Provider [phone] Encounter Details Date Type Department Care Team (Latest Contact Info) Description 06/21/2016 12:05 AM EST - 06/21/2016 11:59 PM EST Hospital Encounter [place] [address] Dave Keys MD [facility] [place] [address] Pain Discharge Disposition: Home Social History Tobacco [...] Keys MD IMG FILM LIBRARY O RDERABLES [place], [place] documented in this encounter Visit Diagnoses Diagnosis Pain Generalized pain documented in this encounter Care Teams Germination Worker Relationship Specialty Start Date End Date Jonathan Penaloza MD [address] [facility] [place] [address] PCP - General 03/09/10 documented as of this encounter
--- OUTSIDE RECORDS SUMMARY | 2023-11-21 21:47 | XMS_ITS | Encounter Summary ---
Author Organization [facility] Address [address] [place] [address] Care Team Providers Care Sales Marketing Manager Name Role Phone Unknown, Provider Primary Care Provider Encounter Details Date Type Department Care Team (Late st Contact Info) Description 03/18/2020 Lab Requisition [facility] Pathology & Laboratory Medicine - [address] [address] Outr Resulting Lab, Provider Social History Tobacco [...] gonorrhoeae Result Negative Negative 03/19/2020 14:52 EST [facility] Chlamydia trachomatis Result Negative Negative 03/19/2020 14:52 EST [facility] Swab ENTIRE VAGINA / Unknown 03/18/2020 8:40 EST 03/18/2020 17:19 EST Provider Outr Resulting Lab MICROBIOLOGY - GENERAL ORDERABLES [facility] [address] [place] [address] documented in this encounter Visit Diagnoses Not on filedocumented in this encounter Additional Health Concerns Infection Onset Date Last Indicated Resolved Time COVID-19 04/21/2021 04/21/2021 05/11/2021 22:1 5 EST documented as of this encounter Care Teams Sales Marketing Manager Relationship Specialty Start Date End Date Unknown, Provider, PCP - General 07/16/21 documented as of this encounter
--- OUTSIDE RECORDS SUMMARY | 2023-11-21 21:47 | XMS_ITS | Encounter Summary ---
Author Organization [facility] Address [address] [place] [address] Care Team Providers Care Personal Insurance Advisor Name Role Phone Unknown, Provider Primary Care Provider [phone] Encounter Details Date Type Department Care Team (Late st Contact Info) Description 03/23/2020 Lab Requisition [facility] Pathology & Laboratory Medicine - [facility] [address] [place] [address] Outr Resulting Lab, Provider Social History Tobacco [...] C Antibody Negative Negative 03/24/2020 10:57 EST [facility] Blood VENOUS BLOOD / Unknown 03/23/2020 10:07 EST 03/23/2020 15:45 EST Provider Outr Resulting Lab CHEMISTRY & BLOOD GAS ORDERABLES [facility] [address] [place] [address] documented in this encounter Visit Diagnoses Not on filedocumented in this encounter Additional Health Concerns Infection Onset Date Last Indicated Resolved Time COVID-19 04/21/2021 04/21/2021 05/11/2021 22:1 5 EST documented as of this encounter Care Teams Personal Insurance Advisor Relationship Specialty Start Date End Date Unknown, Provider, PCP - General 07/16/21 documented as of this encounter
--- OUTSIDE RECORDS SUMMARY | 2023-11-21 21:47 | XMS_ITS | Clinical Summary ---
Author Organization [facility] Address [address] [place] [address] Care Team Providers Care Packaging Technician Name Role Phone Unknown, Provider Primary Care [...] C Antibody Negative Negative 03/24/2020 10:57 EST [facility] Blood VENOUS BLOOD / Unknown 03/23/2020 10:07 EST 03/23/2020 15:45 EST Provider Outr Resulting Lab CHEMISTRY & BLOOD GAS ORDERABLES [facility] [address] [place] [address] from Last 3 Months or Most Recently Relevant to Health Maintenance Care Teams Packaging Technician Relationship Specialty Start Date End Date Unknown, MD [facility] - General 07/16/21
--- OUTSIDE RECORDS SUMMARY | 2023-11-21 21:47 | XMS_ITS | Referral Summary ---
Author Organization [facility] Address [address] [place] [address] Care Team Providers Care Rn Ante Partum Name Role Phone Unknown, Provider Primary Care [...] C Antibody Negative Negative 03/24/2020 10:[address] [facility] Blood VENOUS BLOOD / Unknown 03/23/2020 10:07 EST 03/23/2020 15:45 EST Provider Outr Resulting Lab CHEMISTRY & BLOOD GAS ORDERABLES [facility] [address] [place] [address] from Last 3 Months or Most Recently Relevant to Health Maintenance Care Teams Rn Ante Partum Relationship Specialty Start Date End Date Unknown, Provider, PCP - General 07/16/21
--- OUTSIDE RECORDS SUMMARY | 2023-11-21 21:47 | XMS_ITS | Encounter Summary ---
Author Organization [facility] Address [facility] [place] [address] Care Team Providers Care Registered Nursing Professor Name Role Phone Jonathan Penaloza MD Primary Care Provider [phone] Encounter Details Date Type Department Care Team (Latest Contact Info) Description 06/21/2016 - 06/21/2016 12:04 AM EST Hospital Encounter [place] [address] Dave Keys MD [facility] [place] [address] Pain Discharge Disposition: Home Social History Tobacco [...] Lower Extremity (06/21/2016 12:00 AM EST) Narrative [facility] - 06/22/2016 2:41 PM EST This exam is for storage only and is auto-finalizing. Dave Keys MD IMG FILM LIBRARY O RDERABLES [place], [place] documented in this encounter Visit Diagnoses Diagnosis Pain Generalized pain documented in this encounter Care Teams Registered Nursing Professor Relationship Specialty Start Date End Date Jonathan Penaloza MD [address] [facility] [address] PCP - General 03/09/10 documented as of this encounter
--- OUTSIDE RECORDS SUMMARY | 2023-11-21 21:47 | XMS_ITS | Encounter Summary ---
Author Organization [facility] Address [address] [place] [address] Care Team Providers Care Concrete Journeyman Name Role Phone Unknown, Provider Primary Care Provider Encounter Details Date Type Department Care Team (Late st Contact Info) Description 07/06/2022 Lab Requisition [facility] Pathology & Laboratory Medicine - [facility] [address] [place] [address] Outr Resulting Lab, Provider Social History Tobacco [...] Priority Date/Time Associated Diagnosis Comments [facility]COVID-19 TEST [facility] Today 07/05/2022 13:32 EDT COVID-19 TESTING Routine 07/05/2022 13:3 2 EDT documented in this encounter Results * COVID-19 TEST [facility] PCR (07/05/2022 13:32 EDT) Swab ENTIRE NASOPHARYNX / Unknown 07/05/2022 13:32 EDT 07/06/2022 16:43 EDT Provider Outr Resulting Lab MICROBIOLOGY - GENERAL ORDERABLES [facility] [address] [place] [address] * COVID-19 TESTING (07/05/2022 13:32 EDT) COVID-19 rt-PCR Result Negative Negative 07/06/2022 23:56 EDT [facility] Comment: This test has [...] history, and epidemiological information. Performed on the e[employer]eral Fusion instrument Performing Lab [place] [facility] Lab 07/06/2022 23:56 EDT [facility] Swab ENTIRE NASOPHARYNX / Unknown 07/05/2022 13:32 EDT 07/06/2022 16:43 EDT Provider Outr Resulting Lab MICROBIOLOGY - GENERAL ORDERABLES [facility] [address] [place] [address] documented in this encounter Visit Diagnoses Not on filedocumented in this encounter Care Teams Concrete Journeyman Relationship Specialty Start Date End Date Unknown, Provider, PCP - General 07/16/21 documented as of this encounter
--- OUTSIDE RECORDS SUMMARY | 2023-11-21 21:47 | XMS_ITS | Encounter Summary ---
Author Organization [facility] Address [address] [place] [address] Care Team Providers Care Carton Packaging Machine Operator Name Role Phone Unavailable Primary Care Provider Unavailabl e Encounter Details Date Type Department Care Team (Late st Contact Info) Description 06/22/2020 Results Only [facility] [address] [place] [address] Lynn Dahl MD [address] [place] [address] Social History Tobacco Use Types [...] 136 - 145 mEq/L 06/22/2020 7:02 EST LAB Potassium 3.5 3.5 - 5.1 mEq/L 06/22/2020 7:02 [facility] Chloride 104 96 - 107 mEq/L 06/22/2020 7:02 [facility] CO2 Total 27.9 21 - 32 mEq/L 06/22/2020 7:02 [facility] Anion Gap 10.1 mEq/L 06/22/2020 7:02 [facility] BUN 16 7 - 25 mg/dl 06/22/2020 7:02 [facility] Creatinine 0.86 0.55 - 1.02 mg/dl 06/22/2020 7:02 [facility] Estimated GFR >60 >60 06/22/2020 7:02 [facility] Comment: EGFR UNITS: mL/min/1.73 m 2 CKD-EPI Equation used to calculate. Glucose 87 70 - 180 mg/dl 06/22/2020 7:02 [facility] Calcium 8.7 8.5 - 10.1 mg/dl 06/22/2020 7:02 [facility] 06/22/2020 6:30 EST 06/22/2020 6:43 EST Lynn Dahl MD CHEMISTRY & BLOOD G ORDERABLES LAB [address] [place] [address] * COMPLETE BLOOD COUNT AND DIFFERENTIAL (06/22/2020 6:30 EST) WBC 9.5 4.0 - 10.5 10 3/uL 06/22/2020 6:59 [facility] RBC 5.07 4.20 - 5.40 10 6/uL 06/22/2020 6:59 [facility] Hemoglobin 14.6 12.5 - 16.0 g/dL 06/22/2020 6:59 [facility] HCT 43.9 37.0 - 47.0 % 06/22/2020 6:59 [facility] MCV 86.6 78 - 100 fL 06/22/2020 6:59 [facility] MCH 28.8 27 - 31 pg 06/22/2020 6:59 [facility] MCHC 33.3 32 - 37 g/dL 06/22/2020 6:59 [facility] RDW-CV - PMC 11.9 <14.7 % 06/22/2020 6:59 [facility] PLATELET COUNT - PMC 372 150 - 450 10 3/uL 06/22/2020 6:59 [facility] MPV 10.0 9.2 - 12.0 fL 06/22/2020 6:59 [facility] NEUTROPHILS % (AUTO) - PMC 55.8 42.0 - 75.0 % 06/22/2020 6:59 [facility] LYMPHOCYTES % (AUTO) - PMC 33.2 16.0 - 52.0 % 06/22/2020 6:59 [facility] MONOCYTES % (AUTO) - PMC 8.8 1.0 - 11.0 % 06/22/2020 6:59 [facility] EOSINOPHILS % (AUTO) - PMC 1.5 0.0 - 7.0 % 06/22/2020 6:59 [facility] BASOPHILS % (AUTO) - PMC 0.5 0.0 - 4.0 % 06/22/2020 6:59 [facility] Immature Granulocyte % (Auto) 0.2 % 06/22/2020 6:59 [facility] NUCLEATED RBC % (AUTO) - PMC 0.0 <1 % 06/22/2020 6:59 [facility] NEUTROPHILS # (AUTO) - PMC 5.3 1.5 - 6.6 10 3/uL 06/22/2020 6:59 [facility] LYMPHOCYTES # (AUTO) - PMC 3.2 1.0 - 3.5 10 3/uL 06/22/2020 6:59 [facility] MONOCYTES # (AUTO) - PMC 0.8 <1.0 10 3/uL 06/22/2020 6:59 [facility] EOSINOPHILS # (AUTO) - PMC 0.1 <0.7 10 3/uL 06/22/2020 6:59 [facility] BASOPHILS # (AUTO) - PMC 0.1 <0.1 10 3/uL 06/22/2020 6:59 [facility] Absolute Immature Granulocyte 0.02 <0.06 10 3/uL 06/22/2020 6:59 [facility] NUCLEATED RBC # (AUTO) - PMC 0.00 <1 10 3/uL 06/22/2020 6:59 [facility] 06/22/2020 6:30 EST 06/22/2020 6:42 EST Lynn Dahl MD PACKAGES & DNA PROB E ORDERABLES Performing Organization Address [facility] Co de Phone Number LAB [address] [place] [address] * TEST, URINE (06/22/2020 6:30 EST) Test, Urine Negative Negative 06/22/2020 6:57 [facility] 06/22/2020 6:30 EST 06/22/2020 6:41 EST Narrative LAB - 06/22/2020 6:57 EST Collection Method Unknown Lynn Dahl MD URINALYSIS ORDERABL ES Performing Organization Address [facility] Co de Phone Number LAB [address] [place] [address] * UA (CULTURE IF POSITIVE) - PMC (06/22/2020 6:30 EST) URINE COLOR - PMC Yellow Straw/Yelow 06/22/2020 6:53 [facility] URINE APPEARANCE - PMC Clear Clr/Hazy 06/22/2020 6:53 [facility] URINE PH - PMC 6.0 4.6 - 8.0 06/22/2020 6:53 [facility] UR SPECIFIC GRAVITY (REFRACTOM) - PMC 1.028 1.001 - 1.035 06/22/2020 6:55 [facility] URINE PROTEIN - PMC Negative Negative mg/dL 06/22/2020 6:53 [facility] URINE GLUCOSE (UA) - PMC Negative Negative mg/dL 06/22/2020 6:53 [facility] URINE KETONES - PMC Negative Negative mg/dL 06/22/2020 6:53 [facility] URINE BILIRUBIN - PMC Negative Negative 06/22/2020 6:53 [facility] URINE BLOOD - PMC Negative Negative 06/22/2020 6:53 [facility] URINE UROBILINOGEN - PMC 0.2 0.2 - 1.0 E.U./dL 06/22/2020 6:53 [facility] URINE NITRATE - PMC Negative Negative 06/22/2020 6:53 [facility] URINE LEUKOCYTE ESTERASE - PMC Negative Negative 06/22/2020 6:53 [facility] URINE CULTURE COMMENTS - PMC CRITERIA NOT MET 06/22/2020 6:56 [facility] Comment:Specimen does not me et criteria for culture. [employer] - PMC UR Microscopic N/A 06/22/2020 6:56 [facility] Comment:Microscopic exam is not indicated. 06/22/2020 6:30 EST 06/22/2020 6:41 EST [facility] - 06/22/2020 6:57 EST Collection Method Unknown Lynn Dahl MD MICROBIOLOGY - [facility] ORDERABLES LAB [address] [place] [address] documented in this encounter Visit Diagnoses Not on filedocumented in this encounter
--- OUTSIDE RECORDS SUMMARY | 2023-11-21 21:47 | XMS_ITS | Encounter Summary ---
Author Organization [facility] Address [address] [place] [address] Care Team Providers Care Habitat Conservation Planner Name Role Phone Unknown, Provider Primary Care Provider [phone] Encounter Details Date Type Department Care Team (Late st Contact Info) Description 08/19/2021 Lab Requisition [facility] Pathology & Laboratory Medicine - [facility] [address] [place] [address] Sarah Alanis [address] [place] [address] [place] [id number] Encounter for other general examination Social History [...] Name Priority Date/Time Associated Diagnosis Comments NON PC TECHNICIAN/FNA CYTOLOGY Today 08/18/2021 9:30 EDT Encounter for other general examination documented in this encounter Results * NON PC TECHNICIAN/FNA CYTOLOGY (08/18/2021 9:30 EDT) Note to Patient The following pathology results have been interpreted by your pathologist and may be available to you before your health provider has had the opportunity to review them. Please allow time for your provider to receive these results and explore management options, if applicable. 08/19/2021 16:25 EDT [facility] Final Diagnosis A. CYST FLUID, LEFT OVARY, CYTOLOGIC EVALUATION: - Degenerated cellular debris present - Rare intact macrophages present, consistent with cyst contents. 08/19/2021 16:25 [facility] Attestation By the signature below, the attending physician certifies that they have personally conducted a gross and/or microscopic examination of the described specimens and rendered or confirmed the above diagnosis. 08/19/2021 16:25 EDT [facility] at 1625 Clinical History Left ovarian cyst 08/19/2021 16:25 EDT [facility] Gross Description A. 58cc's of clear yellow fluid were received and processed by selective cellular enhancement technique. 08/19/2021 16:25 [facility] Performing Lab [facility] 08/19/2021 16:25 [facility] Scanned Images 08/19/2021 16:25 [facility] Fluid BODY FLUID / Unknown 08/18/2021 9:30 EDT 08/19/2021 7:53 EDT Sarah Alanis PATHOLOGY ORDERABLES [facility] [address] [place] [address] documented in this encounter Visit Diagnoses Diagnosis Encounter for other general examination documented in this encounter Care Teams Habitat Conservation Planner Relationship Specialty Start Date End Date Unknown, Provider, PCP - General 07/16/21 documented as of this encounter
--- OUTSIDE RECORDS SUMMARY | 2023-11-21 21:47 | XMS_ITS | Encounter Summary ---
Author Organization [facility] Address [address] [place] [address] Care Team Providers Care Woodwind Instruments Inspector Name Role Phone Unknown, Provider Primary Care Provider Reason for Visit * Reason Comments New Patient Visit eczema on hands, bum py fingernails * Consult (Routine) - Authorization Not Required Specialty Diagnoses / Procedures Referred By Reynold carty Referred To Contact Dermatology Diagnoses Dermatitis [place] [address] [place] [address] [place] [address] [address] [place] [id number] Referral ID Status Reason Start Date Expiration Date Visits Requested Visits Authorized [id number] Authorization Not Required 1 1 Encounter Details Date Type Department Care Team (Late st Contact Info) Description 09/27/2021 10:30 EDT Office Visit [facility] Dermatology 3rd [address] [address] Shayy Robert MD [address] [place] [address], Level 3 [place] [phone] Hand dermatitis (Primary Dx) Social History Tobacco [...] My favorite moisturizer for hands is: Neutrogena Palauan formula I'm hoping you'll get the tacrolimus [...] and topical calcineurin inhibitor. She lives in [place], so light therapy is not an option for her. - Prescribed clobetasol 0.05% ointment to apply BID on weekends to the hands followed by thick moisturizer such as Neutrogena Palauan formula. - Prescribed tacrolimus 0.1% ointment to [...] 09/27/2021 added in this encounter Care Teams Woodwind Instruments Inspector Relationship Specialty Start Date End Date Unknown, Provider, PCP - General 07/16/21 documented as of this encounter
--- OUTSIDE RECORDS SUMMARY | 2023-11-21 21:47 | XMS_ITS | Encounter Summary ---
Author Organization [facility] Address [address] [place] [address] Care Team Providers Care Vp Of Customer Experience Strategy Name Role Phone Unknown, Provider Primary Care Provider Encounter Details Date Type Department Care Team (Late st Contact Info) Description 03/29/2023 Lab Requisition [facility] Pathology & Laboratory Medicine - [facility] [address] [place] [address] Outr Resulting Lab, Provider Social History Tobacco [...] gonorrhoeae Result Negative Negative 03/30/2023 12:36 EST [facility] Chlamydia trachomatis Result Negative Negative 03/30/2023 12:36 EST [facility] Urine URINE / Unknown 03/29/2023 9 :30 EST 03/29/2023 17:29 EST Narrative [facility] - 03/30/2023 12:36 EST A first catch urine specimen is acceptable for detection of Gonorrhea and Chlamydia, but might detect up to 10% fewer infections when compared with vaginal and endocervical swab samples. Provider Outr Resulting Lab MICROBIOLOGY - GENERAL ORDERABLES [facility] [address] [place] [address] documented in this encounter Visit Diagnoses Not on filedocumented in this encounter Care Teams Vp Of Customer Experience Strategy Relationship Specialty Start Date End Date Unknown, Provider, PCP - General 07/16/21 documented as of this encounter
--- OUTSIDE RECORDS SUMMARY | 2023-11-21 21:47 | XMS_ITS | Encounter Summary ---
Author Organization [facility] Address [address] [place] [address] Care Team Providers Care Trimmer Sorter Name Role Phone Unavailable Primary Care Provider Unavailabl e Encounter Details Date Type Department Care Team (Late st Contact Info) Description 06/22/2020 Results Only [facility] [address] [place] [address] Silvino Apple MD [address] [place] [address] Social History Tobacco Use Types [...] UVC Result Negative Negative 06/22/2020 20:38 EST [facility] Comment: This test has not been [...] history, and epidemiological information. Performed on the [employer] Fusion instrument Reference Lab Test Performing Site [place] [facility] 06/22/2020 20:38 EST [facility] Comment: Please select one of these categories:: NONE Please indicate the Triage Tier2 Test performed [place] [address] 06/22/2020 7:45 EST 06/22/2020 7:48 EST Narrative [facility] - 06/22/2020 20:38 EST 2 None of the Above Silvino Apple MD MICROBIOLOGY - [facility] ORDERABLES [facility] [address] [place] [address] documented in this encounter Visit Diagnoses Not on filedocumented in this encounter
--- OUTSIDE RECORDS SUMMARY | 2023-11-21 21:47 | XMS_ITS | Encounter Summary ---
Author Organization [facility] Address [address] [place] [address] Care Team Providers Care Electric Distribution Engineer Name Role Phone Unknown, Provider Primary Care Provider Encounter Details Date Type Department Care Team (Late st Contact Info) Description 06/22/2020 Lab Requisition [facility] Pathology & Laboratory Medicine - [facility] [address] [place] [address] Outr Resulting Lab, Provider Social History Tobacco [...] Outr Resulting Lab MICROBIOLOGY - GENERAL ORDERABLES [facility] [address] [place] [address] * COVID-19 TESTING (06/22/2020 7:45 EST) COVID-19 rt-PCR Result Negative Negative 06/22/2020 17:51 EST [facility] Comment: This test has not [...] history, and epidemiological information. Performed on the [employer] Fusion instrument Performing Lab [place] [facility] 06/22/2020 17:51 EST [facility] Swab 06/22/2020 7:45 EST 06/22/2020 15:08 EST Provider Outr Resulting Lab MICROBIOLOGY - GENERAL ORDERABLES [facility] [address] [place] [address] documented in this encounter Visit Diagnoses Not on filedocumented in this encounter Additional Health Concerns Infection Onset Date Last Indicated Resolved Time COVID-19 04/21/2021 04/21/2021 05/11/2021 22:1 5 EST documented as of this encounter Care Teams Electric Distribution Engineer Relationship Specialty Start Date End Date Unknown, Provider, PCP - General 07/16/21 documented as of this encounter
== END 2023-11-21 21:46 | disposition home or self-care (01) ==
LOC: LBN 21:45
PROVIDERS: PCP Nurse Practitioner Family; Visit Provider Nurse Practitioner Family
DX: J02.9 Acute pharyngitis, unspecified (principal)
CPT/HCPCS: 87070

== ENCOUNTER 2023-12-15 10:23 | Emergency (ER) | payer MEDICAID, SELFPAY ==
[2023-12-15 10:23] VITALS: BP 125/85; PULSE 83; RESP 18; TEMP 36.1; O2SAT 98
--- NOTE | 2023-12-15 10:33 | ED.GENADUL_ITS ---
Discharge Plan Disposition Patient Disposition: Home Condition: Stable Discharge Details Clinical Impression: Acute pain of left wrist Primary Care Provider: Joyce Sylvester ED Provider: Silvino Lucas Home Meds and New Rx's Prescriptions: Continued Nexplanon 68 mg implant 1 implant subdermal ONCE Qty: 1 0RF Rx Instructions: as a single dose Discharge Instructions Additional Instructions: Worse, you can take 1000 mg of acetaminophen and 600 mg of ibuprofen every 6 hours as needed Wear the splint as needed for comfort If you feel more ill or have new symptoms such as high fevers return to the emergency department for reevaluation If not improving in 1 to 2 weeks follow-up with your primary care provider HPI General Mode of arrival: ambulatory . Date/Time Provider Initiated Documentation: 12/15/23 10:29 . Limitations to Documentation: no limitations . Information obtained by: patient . History of Present Illness 23 year old F presents to the emergency department with the chief complaint of left wrist pain, described as moderate, Quality is described as aching, and is localized to the left and upper extremity. Patient reports no radiation. Patient started experiencing this day(s) (1) and it has been constant. Rest improves symptom(s), Movement worsens symptoms . Patient notes no other symptoms.. Patient did receive the following treatments prior to arrival, NSAID Related Data Home Medications ?Medication ?Instructions ?Recorded ?Confirmed etonogestrel 68 mg subdermal 1 implant subdermal ONCE #1 ea 03/29/23 12/15/23 implant (Nexplanon) Previous Rx's ?Medication ?Instructions ?Recorded etonogestrel 68 mg subdermal 1 implant subdermal ONCE #1 ea 03/29/23 implant (Nexplanon) Allergies Allergy/AdvReac Type Severity Reaction Status Date / Time morphine Allergy Unknown Other (See Verified 12/15/23 10:28 Comment) red (food color) Allergy Unknown Skin Rash Unverified 12/15/23 10:28 General Stated Complaint: Orthopedic NAVEEN: 4 Review of Systems All systems reviewed & are unremarkable except as noted in HPI and below Constitutional Constitutional: Denies chills, Denies fever(s) and Denies weakness Cardiovascular Cardiovascular: Denies chest pain and Denies dyspnea Respiratory Respiratory: Denies cough and Denies dyspnea Gastrointestinal Gastrointestinal: Denies abdominal pain, Denies nausea and Denies vomiting Musculoskeletal Musculoskeletal: Denies joint swelling Neurologic Neurologic: Denies weakness Exam Const General: no acute distress Orientation: alert HENMT Head: normal to inspection Ears: external ears normal General nose exam: external nose normal Mouth: moist mucous membranes Eyes General: appearance normal, both eyes and all related structures Neck Neck: normal visual inspection Resp Effort & Inspection: normal respiratory effort and able to speak in complete sentences Cardio Rate: regular rate Skin General skin exam: no rashes or lesions noted Neuro General: patient alert and patient oriented x3 Extrem General: normal to inspection, full ROM and capillary refill normal Psych Mental Status: mental status grossly normal Course Vital Signs Vital signs: Vital Signs Temperature 36.1 C L 12/15/23 10:23 Pulse 83 12/15/23 10:23 Respiratory Rate 18 12/15/23 10:23 Blood Pressure 125/85 12/15/23 10:23 Pulse Oximetry 98 12/15/23 10:23 Temperature 36.1 C L 12/15/23 10:23 Temperature Source Temporal Artery Scan 12/15/23 10:23 Pulse 83 12/15/23 10:23 Respiratory Rate 18 12/15/23 10:23 Blood Pressure 125/85 12/15/23 10:23 Blood Pressure Position Sitting 12/15/23 10:23 Pulse Oximetry 98 12/15/23 10:23 Oxygen Delivery Method Room Air 12/15/23 10:23 Oxygen Flow Rate 0 12/15/23 10:23 Pain Level 8 12/15/23 10:23 Medical Decision Making 23-year-old female who denies any significant past medical history comes in with left wrist pain since yesterday. She denies any falls or trauma. No fevers or chills. No rashes, no joint swelling. She localizes the pain to the left wrist on the ulnar surface, there is no visible or palpable deformity she has intact sensation and pulses and full range of motion of the wrist. Suspect that this could be a tendinitis but will obtain x-rays to exclude bony pathology. No findings on exam or history to suggest infectious etiology. No rash or warmth of the wrist. Patient stable, x-ray unremarkable. Suspect tendinitis will provide a splint to use for comfort and advised follow-up with PCP if not improving in 1 to 2 weeks Differential Diagnosis Differential Diagnosis: tendonitis, sprain Imaging Data Radiologic Study: Attestation: I personally reviewed and interpreted this imaging study as follows: Imaging: X-Ray Radiologist's impression: No acute findings Quality:SDOH Health Related Social Needs: No Data to Display PFSH All Active Problems (Updated 12/15/23 @ 11:32 by Silvino Lucas MD) Acute pain of left wrist (Acute) Chlamydia contact (Acute) Bilateral bunions (Chronic 05/24/17) Evaluateed by podiatry. Trial of inserts and f/u if pain persists. No longer wears inserts as of 07/2017. 07/25/18 Irregular menses (Chronic 09/23/14) Menometrorrhagia (Acute) Medical History On Depo-Provera for contraception Left lower quadrant pain Contraception Pediatric body mass index (BMI) of 5th percentile to less than 85th percentile for age (02/01/17) Depression Surgical History Hallux valgus (acquired), left foot S/P Eulalio osteotomy: 12/30/2019 History of bunionectomy S/P laparoscopy Operative laparoscopy with left ovarian cystotomy Hx of wisdom tooth extraction Family History Mother Mental disorder Depression Father No problems noted. Grandparent No problems noted. Sibling Mental disorder Depression and anxiety Asthma Social History Smoking/Tobacco Use Status: Current every day Tobacco Type: e-cigarettes Second Hand Exposure: No Smoking risk assessment performed?: Yes Alcohol Intake: never Details: Smokejacques Baum has been since Apr, is a stress/suicidal thought reliever Drug use: Never Substance use type: does not use Adopted: No Foster care: No Education Level: high school Details: 10th grade, [employer] Pets and animals: Yes Pets and animals: dog(s) Current gender identity: female What type of physical activity do you participate in: other Seatbelt use: always Helmet use: Yes Fire extinguisher in home: Yes Carbon monox detector in home: Yes Firearms in home: No Do you feel safe at home: Yes Do you feel safe in your relationship?: Yes Female Reproductive History Menstrual control method: none History History 0 Para Hx # Term Pregnancies Multiple births Hx # Pregnancies Ectopic pregnancies AB induced Hx Number of Living Children AB spontaneous
[2023-12-15] MEDS: Acetaminophen 500 MG TAB 1000 MG PO (10:39)
--- NOTE | 2023-12-15 10:51 | DI.RAD_ITS ---
Exam(s) XR WRIST LT COMPLETE EXAM: XR WRIST LT COMPLETE CLINICAL HISTORY: pain. TECHNIQUE: 2D digital imaging was performed. COMPARISON: No exams were available for comparison FINDINGS: 3 views No evidence of fracture nor carpal dislocation. No significant ulnar variance. Scaphoid and scaphol unate distance normal. Bone density normal. No osseous lesions. IMPRESSION: No acute osseous findings in the left wrist. DATA REPOSITORY: RADIATION DOSE DELIVERED:
--- OUTSIDE RECORDS SUMMARY | 2023-12-15 11:26 | XMS_ITS | Encounter Summary ---
Author Organization [facility] Address [facility] [place] [address] Care Team Providers Care Information Manager Name Role Phone Jonathan Penaloza MD Primary Care Provider [phone] Encounter Details Date Type Department Care Team (Latest Contact Info) Description 06/21/2016 12:05 AM EST - 06/21/2016 11:59 PM EST Hospital Encounter [place] [address] Dave Keys MD [facility] [place] [address] Pain Discharge Disposition: Home Social History Tobacco [...] Keys MD IMG FILM LIBRARY O RDERABLES [place], [place] documented in this encounter Visit Diagnoses Diagnosis Pain Generalized pain documented in this encounter Care Teams Information Manager Relationship Specialty Start Date End Date Jonathan Penaloza MD [address] [facility] [place] [address] PCP - General 03/09/10 documented as of this encounter
--- OUTSIDE RECORDS SUMMARY | 2023-12-15 11:26 | XMS_ITS | Encounter Summary ---
Author Organization [facility] Address [address] [place] [address] Care Team Providers Care Electronic Development Technician Name Role Phone Unknown, Provider Primary Care Provider [phone] Encounter Details Date Type Department Care Team (Late st Contact Info) Description 03/18/2020 Lab Requisition [facility] Pathology & Laboratory Medicine - [address] [address] Outr Resulting Lab, Provider Social History Tobacco [...] gonorrhoeae Result Negative Negative 03/19/2020 14:[address] [facility] Chlamydia trachomatis Result Negative Negative 03/19/2020 14:[address] [facility] Swab ENTIRE VAGINA / Unknown 03/18/2020 8:40 EST 03/18/2020 17:19 EST Provider Outr Resulting Lab MICROBIOLOGY - GENERAL ORDERABLES [facility] [address] [place] [address] documented in this encounter Visit Diagnoses Not on filedocumented in this encounter Additional Health Concerns Infection Onset Date Last Indicated Resolved Time COVID-19 04/21/2021 04/21/2021 05/11/2021 22:1 5 EST documented as of this encounter Care Teams Electronic Development Technician Relationship Specialty Start Date End Date Unknown, Provider, PCP - General 07/16/21 documented as of this encounter
--- OUTSIDE RECORDS SUMMARY | 2023-12-15 11:26 | XMS_ITS | Encounter Summary ---
Author Organization [facility] Address [address] [place] [address] Care Team Providers Care Park Activities Coordinator Name Role Phone Unknown, Provider Primary Care Provider Encounter Details Date Type Department Care Team (Late st Contact Info) Description 12/08/2022 Lab Requisition [facility] Pathology & Laboratory Medicine - [facility] [address] [place] [address] Outr Resulting Lab, Provider Social History Tobacco [...] Neg and Giardia Antigen Neg 11:04 EDT [facility] Feces SPECIMEN FROM RECTUM / Unknown 12/07/2022 15:46 EDT 12/08/2022 17:35 EDT Provider Outr Resulting Lab MICROBIOLOGY - GENERAL ORDERABLES [facility] [address] [place] [address] * FECAL BACTERIAL PATHOGENS BY PCR (12/07/2022 15:46 EDT) Salmonella PCR Negative Negative 12/09/2022 0:32 EDT [facility] Shigella/Enteroin vasive E. coli Negative Negative 12/09/2022 0:32 EDT [facility] HN LAB CAMPYLOBACTER PCR Negative Negative 12/09/2022 0:32 EDT [facility] Shiga Toxin PCR Negative Negative 0:32 EDT [facility] Feces SPECIMEN FROM RECTUM / Unknown 12/07/2022 15:46 EDT 12/08/2022 17:35 EDT Provider Outr Resulting Lab MICROBIOLOGY - GENERAL ORDERABLES Performing Organization Address [facility]/ZIP Co de Phone Number [facility] [address] [place] [address] * OVA/PARASITE EXAM (12/07/2022 15:46 EDT) Parasite No ova and parasites seen. 12/09/2022 13:48 EDT [facility] Feces SPECIMEN FROM RECTUM / Unknown 12/07/2022 15:46 EDT 12/08/2022 17:35 EDT Narrative [facility] - 12/09/2022 13:48 EDT (If Cryptosporidium, Cyclospora, or Microsporidium are suspected, specific tests must be requested.) Single negative specimen does not rule out the possibility of a parasitic infection. Provider Outr Resulting Lab MICROBIOLOGY - GENERAL ORDERABLES Performing Organization Address City/[facility]/ZIP Co de Phone Number [facility] [address] [place] [address] documented in this encounter Visit Diagnoses Not on filedocumented in this encounter Care Teams Park Activities Coordinator Relationship Specialty Start Date End Date Unknown, Provider, PCP - General 07/16/21 documented as of this encounter
--- OUTSIDE RECORDS SUMMARY | 2023-12-15 11:26 | XMS_ITS | Encounter Summary ---
Author Organization [facility] Address [address] [place] [address] Care Team Providers Care Locomotive Lubricating Systems Clerk Name Role Phone Unknown, Provider Primary Care Provider Encounter Details Date Type Department Care Team (Late st Contact Info) Description 11/15/2022 Lab Requisition [facility] Pathology & Laboratory Medicine - [facility] [address] [place] [address] Outr Resulting Lab, Provider Social History Tobacco [...] gonorrhoeae Result Negative Negative 11/16/2022 13:[address] [facility] Chlamydia trachomatis Result Negative Negative 11/16/2022 13:[address] [facility] Urine URINE / Unknown 11/15/2022 1 3:30 EDT 11/15/2022 22:02 EDT Narrative [facility] - 11/16/2022 13:46 EDT A first catch urine specimen is acceptable for detection of Gonorrhea and Chlamydia, but might detect up to 10% fewer infections when compared with vaginal and endocervical swab samples. Provider Outr Resulting Lab MICROBIOLOGY - GENERAL ORDERABLES [facility] [address] [place] [address] documented in this encounter Visit Diagnoses Not on filedocumented in this encounter Care Teams Locomotive Lubricating Systems Clerk Relationship Specialty Start Date End Date Unknown, Provider, PCP - General 07/16/21 documented as of this encounter
--- OUTSIDE RECORDS SUMMARY | 2023-12-15 11:26 | XMS_ITS | Encounter Summary ---
Author Organization [facility] Address [facility] [place] [address] Care Team Providers Care Processing Spec Name Role Phone Jonathan Penaloza MD Primary Care Provider [phone] Encounter Details Date Type Department Care Team (Latest Contact Info) Description 06/21/2016 - 06/21/2016 12:04 AM EST Hospital Encounter [place] [address] Dave Keys MD [facility] [place] [address] Pain Discharge Disposition: Home Social History Tobacco [...] Extremity (06/21/2016 12:00 AM EST) Narrative [facility] - 06/22/2016 2:41 PM EST This exam is for storage only and is auto-finalizing. Dave Keys MD IMG FILM LIBRARY O RDERABLES [place], [place] documented in this encounter Visit Diagnoses Diagnosis Pain Generalized pain documented in this encounter Care Teams Processing Spec Relationship Specialty Start Date End Date Jonathan Penaloza MD [address] [facility] [place] [address] PCP - General 03/09/10 documented as of this encounter
--- OUTSIDE RECORDS SUMMARY | 2023-12-15 11:26 | XMS_ITS | Encounter Summary ---
Author Organization [facility] Address [address] [place] [address] Care Team Providers Care Tire Buffer Name Role Phone Unknown, Provider Primary Care Provider [phone] Encounter Details Date Type Department Care Team (Late st Contact Info) Description 12/27/2019 Lab Requisition [facility] Pathology & Laboratory Medicine - [facility] [address] [place] [address] Outr Resulting Lab, Provider Social History Tobacco [...] in accordance with CLIA regulations, College of [employer] Pathologists (CAP) guidelines (Jul 04, 2019), and FDA guidance (Jun 15, 2019). This test is only for use under the Food and Drug Administration's Emergency Use Authorization. Swab ENTIRE NASOPHARYNX / Unknown 12/27/2019 11:11 EDT 12/27/2019 16:12 EDT Provider Outr Resulting Lab MICROBIOLOGY - GENERAL ORDERABLES [place], [place] * COVID-19 TESTING (12/27/2019 11:11 EDT) [facility] COVID-19 rt-PCR Result NEGATIVE Negative 12/28/2019 18:09 EDT [facility] Comment: 2019-novel Coronavirus (2019-nCoV) not [...] in accordance with CLIA regulations, College of [employer] Pathologists (CAP) guidelines (Jul 04, 2019), and FDA guidance (Jun 15, 2019). This test is only for use under the Food and Drug Administration's Emergency Use Authorization. Performing Lab [facility] 12/28/2019 18:09 EDT [facility] Swab 12/27/2019 11:1 1 EDT 12/27/2019 16:12 EDT Provider Outr Resulting Lab MICROBIOLOGY - GENERAL ORDERABLES [facility] [address] [place] [address] [facility] [place] documented in this encounter Visit Diagnoses Not on filedocumented in this encounter Additional Health Concerns Infection Onset Date Last Indicated Resolved Time COVID-19 04/21/2021 04/21/2021 05/11/2021 22:1 5 EST documented as of this encounter Care Teams Tire Buffer Relationship Specialty Start Date End Date Unknown, Provider, PCP - General 07/16/21 documented as of this encounter
--- OUTSIDE RECORDS SUMMARY | 2023-12-15 11:26 | XMS_ITS | Encounter Summary ---
Author Organization [facility] Address [address] [place] [address] Care Team Providers Care Community Support Specialist Name Role Phone Unknown, Provider Primary Care Provider Encounter Details Date Type Department Care Team (Late st Contact Info) Description 08/18/2021 Lab Requisition [facility] Pathology & Laboratory Medicine - [facility] [address] [place] [address] Sarah Alanis [address] [place] [address] [place] [phone] Other specified postprocedural states Social History Tobacco [...] management options, if applicable. 08/24/2021 15:38 EDT [facility] Final Diagnosis A. 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 See comment. 08/24/2021 15:38 [facility] Diagnosis Comment The extent of cauterization of the cyst lining limits interpretation. No atypical epithelial proliferation is seen. 08/24/2021 15:38 [facility] Attestation There was significant resident/fellow involvement in the diagnostic evaluation of this case. By the signature below, the attending physician certifies that they have personally conducted a gross and/or microscopic examination of the described specimens and rendered or confirmed the above diagnosis. 08/24/2021 15:38 [facility] at 1538 Clinical History Cyst of left ovary 08/24/2021 15:38 [facility] Gross Description A. Received in formalin labelled with proper patient identification (initials B, D) and ovarian tissue and cyst wall is a section of ovary (2.5 x 2.0 x 1.2 cm). One surface is smooth and white. The other surface is pale purple with slightly ragged edges. Purchasing Engineer sections are submitted in A1. Melissa Oviedo MD 08/19/2021 13:59 The remaining specimen is submitted entirely in A2-A3. Melissa Oviedo MD 08/23/2021 13:23 08/24/2021 15:38 [facility] Resident/Claus w: Melissa Oviedo MD 08/24/2021 15:38 [facility] Performing Lab [facility] 08/24/2021 15:38 [facility] Scanned Images 08/24/2021 15:38 [facility] Tissue ENTIRE OVARY / Unknown 08/18/2021 9:11 EDT 08/18/2021 19:20 EDT Sarah Alanis PATHOLOGY ORDERABLES [facility] [address] [place] [address] documented in this encounter Visit Diagnoses Diagnosis Other specified postprocedural states documented in this encounter Care Teams Community Support Specialist Relationship Specialty Start Date End Date Unknown, Provider, PCP - General 07/16/21 documented as of this encounter
--- OUTSIDE RECORDS SUMMARY | 2023-12-15 11:26 | XMS_ITS | Encounter Summary ---
Author Organization [facility] Address [address] [place] [address] Care Team Providers Care Bone Char Puller Name Role Phone Unavailable Primary Care Provider Unavailabl e Encounter Details Date Type Department Care Team (Late st Contact Info) Description 09/05/2020 Results Only [facility] [address] [place] [address] Lynn Dahl MD [address] [place] [address] Social History Tobacco Use Types [...] 141 136 - 145 mEq/L 09/05/2020 16:35 [facility] Potassium 3.1(L) 3.5 - 5.1 mEq/L 09/05/2020 16:35 [facility] Chloride 104 96 - 107 mEq/L 09/05/2020 16:35 [facility] CO2 Total 27.3 21 - 32 mEq/L 09/05/2020 16:35 [facility] Anion Gap 9.7 mEq/L 09/05/2020 16:35 [facility] BUN 12 7 - 25 mg/dl 09/05/2020 16:35 [facility] Creatinine 0.80 0.55 - 1.02 mg/dl 09/05/2020 16:35 [facility] Estimated GFR >60 >60 09/05/2020 16:35 [facility] Comment: EGFR UNITS: mL/min/1.73 m 2 CKD-EPI Equation used to calculate. Glucose 78 74 - 106 mg/dl 09/05/2020 16:35 [facility] Calcium 8.9 8.5 - 10.1 mg/dl 09/05/2020 16:35 [facility] 09/05/2020 16:1 6 EDT 09/05/2020 16:16 [facility] Narrative [facility] - 09/05/2020 16:47 EDT Sample collected at time of saline lock or IV placement. Lynn Dahl MD CHEMISTRY & BLOOD G ORDERABLES [facility] [address] [place] [address] * COMPLETE BLOOD COUNT AND DIFFERENTIAL (09/05/2020 16:16 EDT) WBC 9.6 4.0 - 10.5 10 3/uL 09/05/2020 16:32 [facility] RBC 4.66 4.20 - 5.40 10 6/uL 09/05/2020 16:32 [facility] Hemoglobin 13.2 12.5 - 16.0 g/dL 09/05/2020 16:32 [facility] HCT 39.5 37.0 - 47.0 % 09/05/2020 16:32 [facility] MCV 84.8 78 - 100 fL 09/05/2020 16:32 [facility] MCH 28.3 27 - 31 pg 09/05/2020 16:32 [facility] MCHC 33.4 32 - 37 g/dL 09/05/2020 16:32 [facility] RDW-CV - PMC 11.7 <14.7 % 09/05/2020 16:32 [facility] PLATELET COUNT - PMC 344 150 - 450 10 3/uL 09/05/2020 16:32 [facility] MPV 9.8 9.2 - 12.0 fL 09/05/2020 16:32 [facility] NEUTROPHILS % (AUTO) - PMC 61.8 % 09/05/2020 16:32 [facility] LYMPHOCYTES % (AUTO) - PMC 29.6 % 09/05/2020 16:32 [facility] MONOCYTES % (AUTO) - PMC 7.2 % 09/05/2020 16:32 [facility] EOSINOPHILS % (AUTO) - PMC 0.8 % 09/05/2020 16:32 [facility] BASOPHILS % (AUTO) - PMC 0.4 % 09/05/2020 16:32 [facility] Immature Granulocyte % (Auto) 0.2 % 09/05/2020 16:32 [facility] NUCLEATED RBC % (AUTO) - PMC 0.0 % 09/05/2020 16:32 [facility] NEUTROPHILS # (AUTO) - PMC 5.9 1.5 - 6.6 10 3/uL 09/05/2020 16:32 [facility] LYMPHOCYTES # (AUTO) - PMC 2.8 1.0 - 3.5 10 3/uL 09/05/2020 16:32 [facility] MONOCYTES # (AUTO) - PMC 0.7 <1.0 10 3/uL 09/05/2020 16:32 EDT [facility] EOSINOPHILS # (AUTO) - PMC 0.1 <0.7 10 3/uL 09/05/2020 16:32 T [facility] Absolute Immature Granulocyte 0.02 <0.06 10 3/uL 09/05/2020 16:32 T [facility] DIFFERENTIAL METHOD Auto Differential 09/05/2020 16:17 T [facility] 09/05/2020 16:1 6 EDT 09/05/2020 16:17 EDT [facility] - 09/05/2020 16:32 EDT Sample collected at time of saline lock or IV placement. Lynn Dahl MD PACKAGES & DNA PROB E ORDERABLES Performing Organization Address City/[facility]/ZIP Co de Phone Number [facility] [address] [place] [phone] * (ABNORMAL) UA MICROSCOPIC - PMC (09/05/2020 16:01 EDT) URINE RBC - PMC 3-10(A) 0 - 2 hpf 16:18 [facility] URINE WBC - PMC None seen 0 - 3 hpf 16:18 [facility] URINE BACTERIA - PMC None Seen None Seen hpf 09/05/2020 16:18 [facility] URINE MUCUS - PMC Present lpf 09/05/2020 16:18 [facility] URINE SQUAMOUS EPITHELIAL CELL - PMC Few None-Few hpf 09/05/2020 16:18 T [facility] 09/05/2020 16:0 1 EDT 09/05/2020 16:06 EDT [facility] - 09/05/2020 16:18 EDT Collection Method Unknown Lynn Dahl MD CHEMISTRY & BLOOD G ORDERABLES Performing Organization Address [facility]/ZIP Co de Phone Number [facility] [address] [place] [phone] * TEST, URINE (09/05/2020 16:01 EDT) Test, Urine Negative Negative 09/05/2020 16:17 [facility] 09/05/2020 16:0 1 EDT 09/05/2020 16:06 EDT Narrative [facility] - 09/05/2020 16:18 EDT Collection Method Unknown Lynn Dahl MD URINALYSIS ORDERABL ES [facility] [address] [place] [address] * (ABNORMAL) UA (CULTURE IF POSITIVE) - PMC (09/05/2020 16:01 EDT) [facility] URINE COLOR - PMC Yellow Straw/Yelow 09/05/2020 16:09 [facility] URINE APPEARANCE - PMC Clear Clr/Hazy 09/05/2020 16:09 [facility] URINE PH - PMC 6.0 4.6 - 8.0 09/05/2020 16:09 [facility] UR SPECIFIC GRAVITY (REFRACTOM) - PMC 1.025 1.001 - 1.035 09/05/2020 16:11 [facility] URINE PROTEIN - PMC Negative Negative mg/dL 09/05/2020 16:09 [facility] URINE GLUCOSE (UA) - PMC Negative Negative mg/dL 09/05/2020 16:09 [facility] URINE KETONES - PMC Negative Negative mg/dL 09/05/2020 16:09 [facility] URINE BILIRUBIN - PMC Negative Negative 09/05/2020 16:09 [facility] URINE BLOOD - PMC Moderate(A) Negative 09/05/2020 16:09 [facility] URINE UROBILINOGEN - PMC 0.2 0.2 - 1.0 E.U./dL 09/05/2020 16:09 [facility] URINE NITRATE - PMC Negative Negative 09/05/2020 16:09 [facility] URINE LEUKOCYTE ESTERASE - PMC Negative Negative 09/05/2020 16:09 [facility] URINE CULTURE COMMENTS - PMC CRITERIA NOT MET 09/05/2020 16:18 EDT [facility] Comment:Specimen does not me et criteria for culture. 09/05/2020 16:0 1 EDT 09/05/2020 16:06 EDT Narrative [facility] - 09/05/2020 16:18 EDT Collection Method Unknown Lynn Dahl MD MICROBIOLOGY - [facility] ORDERABLES Performing Organization Address City/State/[facility] Co de Phone Number [facility] [address] [place] [address] documented in this encounter Visit Diagnoses Not on filedocumented in this encounter
--- OUTSIDE RECORDS SUMMARY | 2023-12-15 11:26 | XMS_ITS | Encounter Summary ---
Author Organization [facility] Address [address] [place] [address] Care Team Providers Care Shop Foreman Name Role Phone Unknown, Provider Primary Care Provider Encounter Details Date Type Department Care Team (Late st Contact Info) Description 01/31/2022 Lab Requisition [facility] Pathology & Laboratory Medicine - [facility] [address] [place] [address] Outr Resulting Lab, Provider Social History Tobacco [...] 12:00 EDT) Hold Hold 01/31/2022 18:01 EDT [facility] Blood VENOUS BLOOD / Unknown 01/31/2022 12:00 EDT 01/31/2022 16:53 EDT Provider Outr Resulting Lab LAB INFO SER VICE AND SUPPORT & PHONE RESULT Performing Organization Address City/[facility] [address] [facility]/ZIP Co de Phone Number [facility] [address] [place] [address] * HOLD SST (01/31/2022 12:00 EDT) Hold Hold 01/31/2022 18:01 EDT [facility] Blood VENOUS BLOOD / Unknown 01/31/2022 12:00 EDT 01/31/2022 16:53 EDT Provider Outr Resulting Lab LAB INFO SER VICE AND SUPPORT & PHONE RESULT Performing Organization Address [facility] [address]/[facility] de Phone Number [facility] [address] [place] [address] * FSH (01/31/2022 12:00 EDT) FSH 5.5 See Note mIU/mL 01/31/2022 18:05 EDT [facility] Blood VENOUS BLOOD / Unknown 01/31/2022 12:00 EDT 01/31/2022 16:53 EDT Narrative [facility] - 01/31/2022 18:05 EDT [...] & BLOOD GAS ORDERABLES Performing Organization Address [facility] [address]/[facility] Co de Phone Number [facility] [address] [place] [address] * PROLACTIN (01/31/2022 12:00 EDT) Prolactin 7.9 See Note ng/mL 01/31/2022 18:05 EDT [facility] Comment: NOTE: Female Reference Ranges: PHYSIOLOGICAL STATUS ?REFERENCE RANGE ? Postmenopausal ?1.8 - 20.3 ng/mL ?9.7 - 208.5 ng/mL Non- ?2.8 - 29.2 ng/mL Blood VENOUS BLOOD / Unknown 01/31/2022 12:00 EDT 01/31/2022 16:53 EDT Provider Outr Resulting Lab CHEMISTRY & BLOOD GAS ORDERABLES Performing Organization Address [facility] [address]/[facility] Co de Phone Number [facility] [address] [place] [address] * DHEA SULFATE (01/31/2022 12:00 EDT) DHEA Sulfate 174 61 - 494 ug/dL 02/02/2022 9:43 EDT [facility] Blood VENOUS BLOOD / Unknown 01/31/2022 12:00 EDT 01/31/2022 16:53 EDT Provider Outr Resulting Lab CHEMISTRY & BLOOD GAS ORDERABLES [facility] [address] [place] [address] documented in this encounter Visit Diagnoses Not on filedocumented in this encounter Care Teams Shop Foreman Relationship Specialty Start Date End Date Unknown, Provider, PCP - General 07/16/21 documented as of this encounter
--- OUTSIDE RECORDS SUMMARY | 2023-12-15 11:26 | XMS_ITS | Encounter Summary ---
Author Organization [facility] Address [address] [place] [address] Care Team Providers Care Automatic Gluing Machine Operator Name Role Phone Unavailable Primary Care Provider Unavailabl e Reason for Visit * Reason Onset Date Comments Appointment Related 05/21/2021 Encounter Details Date Type Department Care Team (Late st Contact Info) Description 05/21/2021 Telephone [facility] Dermatology [address] [id number] Shayy Robert MD [address] [place] [address], [address] [place] [address] Appointment Related Social History Tobacco [...]
--- OUTSIDE RECORDS SUMMARY | 2023-12-15 11:26 | XMS_ITS | Encounter Summary ---
Author Organization [facility] Address [address] [place] [address] Care Team Providers Care Thoroughbred Horse Farm Manager Name Role Phone Unknown, Provider Primary Care Provider Encounter Details Date Type Department Care Team (Late st Contact Info) Description 03/23/2020 Lab Requisition [facility] Pathology & Laboratory Medicine - [facility] [address] [place] [address] Outr Resulting Lab, Provider Social History Tobacco [...] C Antibody Negative Negative 03/24/2020 10:57 EST [facility] Blood VENOUS BLOOD / Unknown 03/23/2020 10:07 EST 03/23/2020 15:45 EST Provider Outr Resulting Lab CHEMISTRY & BLOOD GAS ORDERABLES [facility] [address] [place] [address] documented in this encounter Visit Diagnoses Not on filedocumented in this encounter Additional Health Concerns Infection Onset Date Last Indicated Resolved Time COVID-19 04/21/2021 04/21/2021 05/11/2021 22:1 5 EST documented as of this encounter Care Teams Thoroughbred Horse Farm Manager Relationship Specialty Start Date End Date Unknown, Provider, PCP - General 07/16/21 documented as of this encounter
--- OUTSIDE RECORDS SUMMARY | 2023-12-15 11:26 | XMS_ITS | Referral Summary ---
Author Organization [facility] Address [address] [place] [address] Care Team Providers Care Class B Driver Name Role Phone Unknown, Provider Primary Care Provider [phone] Allergies Active Allergy Reactions Criticality Noted Date [...] C Antibody Negative Negative 03/24/2020 10:57 EST [facility] Blood VENOUS BLOOD / Unknown 03/23/2020 10:07 EST 03/23/2020 15:45 EST Provider Outr Resulting Lab CHEMISTRY & BLOOD GAS ORDERABLES [facility] [address] [place] [address] from Last 3 Months or Most Recently Relevant to Health Maintenance Care Teams Class B Driver Relationship Specialty Start Date End Date Unknown, Provider, PCP - General 07/16/21
--- OUTSIDE RECORDS SUMMARY | 2023-12-15 11:26 | XMS_ITS | Encounter Summary ---
Author Organization [facility] Address [address] [place] [address] Care Team Providers Care Shine Worker Name Role Phone Unavailable Primary Care Provider Unavailabl e Encounter Details Date Type Department Care Team (Late st Contact Info) Description 06/22/2020 Results Only [facility] [address] [place] [address] Lynn Dahl MD [address] [place] [address] Social History Tobacco Use Types [...] 136 - 145 mEq/L 06/22/2020 7:02 EST [facility] Potassium 3.5 3.5 - 5.1 mEq/L 06/22/2020 7:02 [facility] Chloride 104 96 - 107 mEq/L 06/22/2020 7:02 [facility] CO2 Total 27.9 21 - 32 mEq/L 06/22/2020 7:02 [facility] Anion Gap 10.1 mEq/L 06/22/2020 7:02 [facility] BUN 16 7 - 25 mg/dl 06/22/2020 7:02 [facility] Creatinine 0.86 0.55 - 1.02 mg/dl 06/22/2020 7:02 [facility] Estimated GFR >60 >60 06/22/2020 7:02 [facility] Comment: EGFR UNITS: mL/min/1.73 m 2 CKD-EPI Equation used to calculate. Glucose 87 70 - 180 mg/dl 06/22/2020 7:02 [facility] Calcium 8.7 8.5 - 10.1 mg/dl 06/22/2020 7:02 [facility] 06/22/2020 6:30 EST 06/22/2020 6:43 EST Lynn Dahl MD CHEMISTRY & BLOOD G ORDERABLES [facility] [address] [place] [address] * COMPLETE BLOOD COUNT AND DIFFERENTIAL (06/22/2020 6:30 EST) WBC 9.5 4.0 - 10.5 10 3/uL 06/22/2020 6:59 [facility] RBC 5.07 4.20 - 5.40 10 6/uL 06/22/2020 6:59 [facility] Hemoglobin 14.6 12.5 - 16.0 g/dL 06/22/2020 6:59 [facility] HCT 43.9 37.0 - 47.0 % 06/22/2020 6:59 [facility] MCV 86.6 78 - 100 fL 06/22/2020 6:59 [facility] MCH 28.8 27 - 31 pg 06/22/2020 6:59 [facility] MCHC 33.3 32 - 37 g/dL 06/22/2020 6:59 [facility] RDW-CV - PMC 11.9 <14.7 % 06/22/2020 6:59 [facility] PLATELET COUNT - PMC 372 150 - 450 10 3/uL 06/22/2020 6:59 [facility] MPV 10.0 9.2 - 12.0 fL 06/22/2020 6:59 [facility] NEUTROPHILS % (AUTO) - PMC 55.8 42.0 - 75.0 % 06/22/2020 6:59 [facility] LYMPHOCYTES % (AUTO) - PMC 33.2 16.0 - 52.0 % 06/22/2020 6:59 [facility] MONOCYTES % (AUTO) - PMC 8.8 1.0 - 11.0 % 06/22/2020 6:59 [facility] EOSINOPHILS % (AUTO) - PMC 1.5 0.0 - 7.0 % 06/22/2020 6:59 [facility] BASOPHILS % (AUTO) - PMC 0.5 0.0 - 4.0 % 06/22/2020 6:59 [facility] Immature Granulocyte % (Auto) 0.2 % 06/22/2020 6:59 [facility] NUCLEATED RBC % (AUTO) - PMC 0.0 <1 % 06/22/2020 6:59 [facility] NEUTROPHILS # (AUTO) - PMC 5.3 1.5 - 6.6 10 3/uL 06/22/2020 6:59 [facility] LYMPHOCYTES # (AUTO) - PMC 3.2 1.0 - 3.5 10 3/uL 06/22/2020 6:59 [facility] MONOCYTES # (AUTO) - PMC 0.8 <1.0 10 3/uL 06/22/2020 6:59 [facility] EOSINOPHILS # (AUTO) - PMC 0.1 <0.7 10 3/uL 06/22/2020 6:59 [facility] BASOPHILS # (AUTO) - PMC 0.1 <0.1 10 3/uL 06/22/2020 6:59 [facility] Absolute Immature Granulocyte 0.02 <0.06 10 3/uL 06/22/2020 6:59 [facility] NUCLEATED RBC # (AUTO) - PMC 0.00 <1 10 3/uL 06/22/2020 6:59 [facility] 06/22/2020 6:30 EST 06/22/2020 6:42 EST Lynn Dahl MD PACKAGES & DNA PROB E ORDERABLES Performing Organization Address [facility] Co de Phone Number [facility] [address] [place] [address] * TEST, URINE (06/22/2020 6:30 EST) Test, Urine Negative Negative 06/22/2020 6:57 [facility] 06/22/2020 6:30 EST 06/22/2020 6:41 EST Narrative [facility] - 06/22/2020 6:57 EST Collection Method Unknown Lynn Dahl MD URINALYSIS ORDERABL ES Performing Organization Address [facility] Co de Phone Number [facility] [address] [place] [address] * UA (CULTURE IF POSITIVE) - PMC (06/22/2020 6:30 EST) URINE COLOR - PMC Yellow Straw/Yelow 06/22/2020 6:53 [facility] URINE APPEARANCE - PMC Clear Clr/Hazy 06/22/2020 6:53 [facility] URINE PH - PMC 6.0 4.6 - 8.0 06/22/2020 6:53 [facility] UR SPECIFIC GRAVITY (REFRACTOM) - PMC 1.028 1.001 - 1.035 06/22/2020 6:55 [facility] URINE PROTEIN - PMC Negative Negative mg/dL 06/22/2020 6:53 [facility] URINE GLUCOSE (UA) - PMC Negative Negative mg/dL 06/22/2020 6:53 [facility] URINE KETONES - PMC Negative Negative mg/dL 06/22/2020 6:53 [facility] URINE BILIRUBIN - PMC Negative Negative 06/22/2020 6:53 [facility] URINE BLOOD - PMC Negative Negative 06/22/2020 6:53 [facility] URINE UROBILINOGEN - PMC 0.2 0.2 - 1.0 E.U./dL 06/22/2020 6:53 [facility] URINE NITRATE - PMC Negative Negative 06/22/2020 6:53 [facility] URINE LEUKOCYTE ESTERASE - PMC Negative Negative 06/22/2020 6:53 [facility] URINE CULTURE COMMENTS - PMC CRITERIA NOT MET 06/22/2020 6:56 [facility] Comment:Specimen does not me et criteria for culture. [facility] - PMC UR Microscopic N/A 06/22/2020 6:56 [facility] Comment:Microscopic exam is not indicated. 06/22/2020 6:30 EST 06/22/2020 6:41 EST [facility] - 06/22/2020 6:57 EST Collection Method Unknown Lynn Dahl MD MICROBIOLOGY - [facility] ORDERABLES [facility] [address] [place] [address] documented in this encounter Visit Diagnoses Not on filedocumented in this encounter
--- OUTSIDE RECORDS SUMMARY | 2023-12-15 11:26 | XMS_ITS | Encounter Summary ---
Author Organization [facility] Address [address] [place] [address] Care Team Providers Care Donkey Engine Firer/Fireman Name Role Phone Unknown, Provider Primary Care Provider Encounter Details Date Type Department Care Team (Late st Contact Info) Description 07/06/2022 Lab Requisition [facility] Pathology & Laboratory Medicine - [facility] [address] [place] [address] Outr Resulting Lab, Provider Social History Tobacco [...] Priority Date/Time Associated Diagnosis Comments [facility] Today 07/05/2022 13:32 EDT COVID-19 TESTING Routine 07/05/2022 13:3 2 EDT documented in this encounter Results * COVID-19 TEST [facility] PCR (07/05/2022 13:32 EDT) Swab ENTIRE NASOPHARYNX / Unknown 07/05/2022 13:32 EDT 07/06/2022 16:43 EDT Provider Outr Resulting Lab MICROBIOLOGY - GENERAL ORDERABLES [facility] [address] [place] [address] * COVID-19 TESTING (07/05/2022 13:32 EDT) COVID-19 rt-PCR Result Negative Negative 07/06/2022 23:56 EDT [facility] Comment: This test [...] history, and epidemiological information. Performed on the TuTanda Fusion instrument Performing Lab [place] [facility] Lab 07/06/2022 23:56 EDT [facility] Swab ENTIRE NASOPHARYNX / Unknown 07/05/2022 13:32 EDT 07/06/2022 16:43 EDT Provider Outr Resulting Lab MICROBIOLOGY - GENERAL ORDERABLES [facility] [address] [place] [address] documented in this encounter Visit Diagnoses Not on filedocumented in this encounter Care Teams Donkey Engine Firer/Fireman Relationship Specialty Start Date End Date Unknown, Provider, PCP - General 07/16/21 documented as of this encounter
--- OUTSIDE RECORDS SUMMARY | 2023-12-15 11:26 | XMS_ITS | Encounter Summary ---
Author Organization [facility] Address [address] [place] [address] Care Team Providers Care Director Of Religious Activities Name Role Phone Unknown, Provider Primary Care Provider Encounter Details Date Type Department Care Team (Late st Contact Info) Description 06/22/2020 Lab Requisition [facility] Pathology & Laboratory Medicine - [facility] [address] [place] [address] Outr Resulting Lab, Provider Social History Tobacco [...] MICROBIOLOGY - GENERAL ORDERABLES [facility] [address] [place] [address] * COVID-19 TESTING (06/22/2020 7:45 EST) COVID-19 rt-PCR Result Negative Negative 06/22/2020 17:51 EST [facility] Comment: This test has not [...] history, and epidemiological information. Performed on the [employer] Fusion instrument Performing Lab [place] [facility] Lab 06/22/2020 17:51 EST [facility] Swab 06/22/2020 7:45 EST 06/22/2020 15:08 EST Provider Outr Resulting Lab MICROBIOLOGY - GENERAL ORDERABLES [facility] [address] [place] [address] documented in this encounter Visit Diagnoses Not on filedocumented in this encounter Additional Health Concerns Infection Onset Date Last Indicated Resolved Time COVID-19 04/21/2021 04/21/2021 05/11/2021 22:1 5 EST documented as of this encounter Care Teams Director Of Religious Activities Relationship Specialty Start Date End Date Unknown, Provider, PCP - General 07/16/21 documented as of this encounter
--- OUTSIDE RECORDS SUMMARY | 2023-12-15 11:26 | XMS_ITS | Clinical Summary ---
Author Organization [facility] [place] [address] Care Team Providers Care Business Services Administrator Name Role Phone Jonathan Penaloza MD Primary Care Provider [phone] Social History Tobacco Use Types Packs/Day Years [...] - Influenza standard series) 12/17/2023 Care Teams Business Services Administrator Relationship Specialty Start Date End Date Jonathan Penaloza MD [address] [facility] [place] [address] PCP - General 03/09/10
--- OUTSIDE RECORDS SUMMARY | 2023-12-15 11:26 | XMS_ITS | Encounter Summary ---
Author Organization [facility] Address [address] [place] [address] Care Team Providers Care Healthcare Management Name Role Phone Unknown, Provider Primary Care Provider Encounter Details Date Type Department Care Team (Late st Contact Info) Description 03/29/2023 Lab Requisition [facility] Pathology & Laboratory Medicine - [facility] [address] [place] [address] Outr Resulting Lab, Provider Social History Tobacco [...] gonorrhoeae Result Negative Negative 03/30/2023 12:36 EST [facility] Chlamydia trachomatis Result Negative Negative 03/30/2023 12:36 EST [facility] Urine URINE / Unknown 03/29/2023 9 :30 EST 03/29/2023 17:29 EST Narrative [facility] - 03/30/2023 12:36 EST A first catch urine specimen is acceptable for detection of Gonorrhea and Chlamydia, but might detect up to 10% fewer infections when compared with vaginal and endocervical swab samples. Provider Outr Resulting Lab MICROBIOLOGY - GENERAL ORDERABLES [facility] [address] [place] [address] documented in this encounter Visit Diagnoses Not on filedocumented in this encounter Care Teams Healthcare Management Relationship Specialty Start Date End Date Unknown, Provider, PCP - General 07/16/21 documented as of this encounter
--- OUTSIDE RECORDS SUMMARY | 2023-12-15 11:26 | XMS_ITS | Clinical Summary ---
Author Organization [facility] Address [address] [place] [address] Care Team Providers Care Spool Worker Name Role Phone Unknown, Provider Primary Care [...] C Antibody Negative Negative 03/24/2020 10:57 EST [facility] Blood VENOUS BLOOD / Unknown 03/23/2020 10:07 EST 03/23/2020 15:45 EST Provider Outr Resulting Lab CHEMISTRY & BLOOD GAS ORDERABLES [facility] [address] [place] [address] from Last 3 Months or Most Recently Relevant to Health Maintenance Care Teams Spool Worker Relationship Specialty Start Date End Date Unknown, MD Jean-[facility] - General 07/16/21
--- OUTSIDE RECORDS SUMMARY | 2023-12-15 11:26 | XMS_ITS | Encounter Summary ---
Author Organization [facility] Address [address] [place] [address] Care Team Providers Care Bindery Cutter Operator Name Role Phone Unknown, Provider Primary Care Provider Encounter Details Date Type Department Care Team (Late st Contact Info) Description 03/23/2020 Lab Requisition [facility] Pathology & Laboratory Medicine - [address] [address] Outr Resulting Lab, Provider Social History Tobacco [...] 4th Generation Negative Negative 03/24/2020 12:40 EST [facility] Comment: If acute HIV-1 infection is suspected in a high risk ??patient, submit plasma specimen for HIV-1 RNA quantitation test. Fourth Generation assay performed on the Siemens Centaur. Blood VENOUS BLOOD / Unknown 03/23/2020 10:07 EST 03/23/2020 15:45 EST Provider Outr Resulting Lab IMMUNOLOGY A ND SEROLOGY ORDERABLES [facility] [address] [place] [address] documented in this encounter Visit Diagnoses Not on filedocumented in this encounter Additional Health Concerns Infection Onset Date Last Indicated Resolved Time COVID-19 04/21/2021 04/21/2021 05/11/2021 22:1 5 EST documented as of this encounter Care Teams Bindery Cutter Operator Relationship Specialty Start Date End Date Unknown, Provider, PCP - General 07/16/21 documented as of this encounter
--- OUTSIDE RECORDS SUMMARY | 2023-12-15 11:26 | XMS_ITS | Encounter Summary ---
Author Organization [facility] Address [address] [place] [address] Care Team Providers Care Speed Runner Name Role Phone Unknown, Provider Primary Care Provider Encounter Details Date Type Department Care Team (Late st Contact Info) Description 11/16/2021 Lab Requisition [facility] Pathology & Laboratory Medicine - [facility] [address] [place] [address] Outr Resulting Lab, Provider Social History Tobacco [...] Surface Ag Negative Negative 11/17/2021 10:48 EDT [facility] Hep C Antibody Negative Negative 11/17/2021 10:48 EDT [facility] Hepatitis A Antibody, IgM Negative Negative 11/17/2021 10:48 EDT [facility] Comment:The results of this assay can be falsely lowered due to the consumption of Biotin. Hepatitis B Core Ab, Total Negative Negative 11/17/2021 10:48 EDT [facility] Blood VENOUS BLOOD / Unknown 11/15/2021 22:18 EDT 11/16/2021 17:20 EDT Provider Outr Resulting Lab CHEMISTRY & BLOOD GAS ORDERABLES [facility] [address] [place] [address] documented in this encounter Visit Diagnoses Not on filedocumented in this encounter Care Teams Speed Runner Relationship Specialty Start Date End Date Unknown, Provider, PCP - General 07/16/21 documented as of this encounter
--- OUTSIDE RECORDS SUMMARY | 2023-12-15 11:26 | XMS_ITS | Encounter Summary ---
Author Organization [facility] Address [address] [place] [address] Care Team Providers Care Administrative Medical Director Name Role Phone Unknown, Provider Primary Care Provider [phone] Encounter Details Date Type Department Care Team (Late st Contact Info) Description 08/19/2021 Lab Requisition [facility] Pathology [facility] [address] [place] [address] [address]is [address] [place] [address] [place] [phone] Encounter for other general examination Social History [...] Name Priority Date/Time Associated Diagnosis Comments NON INK TECHNICIAN/FNA CYTOLOGY Today 08/18/2021 9:30 EDT Encounter for other general examination documented in this encounter Results * NON INK TECHNICIAN/FNA CYTOLOGY (08/18/2021 9:30 EDT) Note to Patient The following pathology results have been interpreted by your pathologist and may be available to you before your health provider has had the opportunity to review them. Please allow time for your provider to receive these results and explore management options, if applicable. 08/19/2021 16:25 EDT [facility] Final Diagnosis A. CYST FLUID, LEFT OVARY, CYTOLOGIC EVALUATION: - Degenerated cellular debris present - Rare intact macrophages present, consistent with cyst contents. 08/19/2021 16:25 [facility] Attestation By the signature below, the attending physician certifies that they have personally conducted a gross and/or microscopic examination of the described specimens and rendered or confirmed the above diagnosis. 08/19/2021 16:25 EDT [facility] at 1625 Clinical History Left ovarian cyst 08/19/2021 16:25 EDT [facility] Gross Description A. 58cc's of clear yellow fluid were received and processed by selective cellular enhancement technique. 08/19/2021 16:25 [facility] Performing Lab [facility] 08/19/2021 16:25 [facility] Scanned Images 08/19/2021 16:25 [facility] Fluid BODY FLUID / Unknown 08/18/2021 9:30 EDT 08/19/2021 7:53 EDT Sarah Alanis PATHOLOGY ORDERABLES [facility] [address] [place] [address] documented in this encounter Visit Diagnoses Diagnosis Encounter for other general examination documented in this encounter Care Teams Administrative Medical Director Relationship Specialty Start Date End Date Unknown, Provider, PCP - General 07/16/21 documented as of this encounter
--- OUTSIDE RECORDS SUMMARY | 2023-12-15 11:26 | XMS_ITS | Encounter Summary ---
Author Organization [facility] Address [address] [place] [address] Care Team Providers Care Butting Saw Operator Name Role Phone Unknown, Provider Primary Care Provider Encounter Details Date Type Department Care Team (Late st Contact Info) Description 04/22/2021 Lab Requisition [facility] Pathology & Laboratory Medicine - [facility] [address] [place] [address] Outr Resulting Lab, Provider Social History Tobacco [...] Outr Resulting Lab MICROBIOLOGY - GENERAL ORDERABLES [facility] [address] [place] [address] * (ABNORMAL) COVID-19 TESTING (04/21/2021 16:27 EST) COVID-19 rt-PCR Result Positive( AA) Negative 04/23/2021 16:23 EST [facility] Comment: This test has not [...] developed and its performance characteristics determined by [facility]. It has not been cleared or [...] testing. This test is based on the [facility] COVID-19 Emergency Use Authorization (EUA) assay, with minor modification as defined by the FDA Performed on the Borqso 7 Flex RT-PCR System. Performing Lab [facility] Lab 04/23/2021 16:23 EST [facility] Swab 04/21/2021 16:2 7 EST 04/22/2021 17:45 EST Provider Outr Resulting Lab MICROBIOLOGY - GENERAL ORDERABLES [facility] [address] [place] [address] documented in this encounter Visit Diagnoses Not on filedocumented in this encounter Additional Health Concerns Infection Onset Date Last Indicated Resolved Time COVID-19 04/21/2021 04/21/2021 05/11/2021 22:1 5 EST documented as of this encounter Care Teams Butting Saw Operator Relationship Specialty Start Date End Date Unknown, Provider, PCP - General 07/16/21 documented as of this encounter
--- OUTSIDE RECORDS SUMMARY | 2023-12-15 11:26 | XMS_ITS | Encounter Summary ---
Author Organization [facility] Address [address] [place] [address] Care Team Providers Care Manager Spa Name Role Phone Unknown, Provider Primary Care Provider [phone] Reason for Visit * Reason Comments New Patient Visit eczema on hands, bum py fingernails * Consult (Routine) - Authorization Not Required Specialty Diagnoses / Procedures Referred By Reynold carty Referred To Contact Dermatology Diagnoses Dermatitis [address] [place] [address] [place] [address] [address] [place] [address] Referral ID Status Reason Start Date Expiration Date Visits Requested Visits Authorized [id number] Authorization Not Required 1 1 Encounter Details Date Type Department Care Team (Late st Contact Info) Description 09/27/2021 10:30 EDT Office Visit [facility] Dermatology 3rd [address] [address] Shayy Robert MD [address] [place] [address], [address] 3 [phone] Hand dermatitis (Primary Dx) Social History Tobacco [...] My favorite moisturizer for hands is: Neutrogena Filipino formula I'm hoping you'll get the tacrolimus [...] and topical calcineurin inhibitor. She lives in [place], so light therapy is not an option for her. - Prescribed clobetasol 0.05% ointment to apply BID on weekends to the hands followed by thick moisturizer such as Neutrogena Filipino formula. - Prescribed tacrolimus 0.1% ointment to [...] 09/27/2021 added in this encounter Care Teams Manager Spa Relationship Specialty Start Date End Date Unknown, Provider, PCP - General 07/16/21 documented as of this encounter
--- OUTSIDE RECORDS SUMMARY | 2023-12-15 11:26 | XMS_ITS | Encounter Summary ---
Author Organization Health system Address [address] [place] [address] Care Team Providers Care Medical Sales Specialist Name Role Phone Unavailable Primary Care Provider Unavailabl e Encounter Details Date Type Department Care Team (Late st Contact Info) Description 06/22/2020 Results Only [facility] [address] [place] [address] Silvino Apple MD [address] [place] [phone] Social History Tobacco Use Types [...] UVC Result Negative Negative 06/22/2020 20:38 EST [facility] Comment: This test has not [...] history, and epidemiological information. Performed on the [employer] Fusion instrument Reference Lab Test Performing Site [facility] 06/22/2020 20:38 EST [facility] Comment: Please select one of these categories:: NONE Please indicate the Triage Tier2 Test performed [place] [address] 06/22/2020 7:45 EST 06/22/2020 7:48 EST Narrative [facility] - 06/22/2020 20:38 EST 2 None of the Above Silvino Apple MD MICROBIOLOGY - [facility] ORDERABLES [facility] [address] [place] [address] documented in this encounter Visit Diagnoses Not on filedocumented in this encounter
[2023-12-15 11:48] VITALS: BP 125/85; PULSE 68; RESP 16; TEMP 36.4; O2SAT 98
== END 2023-12-15 11:51 | disposition home or self-care (01) ==
PROVIDERS: Emergency Provider Emergency Medicine; PCP Nurse Practitioner Family
DX: M25.532 Pain in left wrist (principal); F17.290 Nicotine dependence, other tobacco product, uncomplicated
CPT/HCPCS: 81025; 99283; 73110

== ENCOUNTER 2024-01-04 22:21 | Emergency (ER) | payer MEDICAID, SELFPAY ==
[2024-01-04 22:24] VITALS: BP 137/99; PULSE 122; RESP 16; TEMP 36.2; O2SAT 98
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
--- OUTSIDE RECORDS SUMMARY | 2024-01-04 22:33 | XMS_ITS | Data Portability ---
Author Organization [facility] [place] [address] Assessment No assessment recorded. Plan of Treatment Reminders Order Date Submit Date Provider Last Modified By Organization Details Last Modified Time Details Appointments None recorded. Lab culture, throat - Specimen collected in the office at [facility]. 2023 024 [facility] (Registration ), [address] [place] [address] [place], [address], 4 10:22:11 SARS CoV 2 RNA (COVID-19), QL, digital strategy manager-PCR, respiratory specimen - Specimen collected in the office at [facility]. 2023 024 [facility] (Registration ), [address] [place] [address] [place], [address], 4 08:55:55 influenza virus A + B + SARS-CoV-2 (COVID19) Ag panel, rapid IA, upper respiratory specimen 20[email or web address], [facility], [place], [address], 4 10:44:48 rapid strep group A, throat 20[email or web address], [facility], [place], [address], 4 10:44:50 influenza virus A + B + SARS-CoV-2 (COVID19) Ag panel, rapid IA, upper respiratory specimen [address], [address] [place] [address], [address], [place], [address], 4 13:39:44 rapid strep group A, throat [address], [address] [place] [address], [address], [place], [address], 4 13:39:49 culture, throat 2023 024 [facility] (Registration ), [address] [place] [address] [place], [address], 4 12:10:44 TSH, serum, reflex free T4 - drawn in office. 1 tiger and 1 lavender top tube 2023 024 [facility] (Registration ), [address] [place] [address] [place], [address], 4 11:57:37 iron + TIBC + ferritin, serum 2023 024 [facility] (Registration ), [address] [place] [address] [place], [address], 4 11:57:22 CBC 2023 024 [facility] (Registration ), [address] [place] [address] [place], [address], 4 21:13:05 CMP, serum or plasma 2023 024 [facility] (Registration ), [address] [place] [address] [place], [address], 4 21:43:11 rapid strep group A, throat 2023 024 [facility], [address] [place] [address], [address], [place], [address], 4 17:37:23 influenza virus A + B + SARS-CoV-2 (COVID19) Ag panel, rapid IA, upper respiratory specimen 2023 024 [email or web address] [facility], [address] [place] [address], [address], [place], [address], 4 17:37:25 culture, throat 2023 024 [facility] (Registration ), [address] [place] [address] , [place], [address], 4 14:48:03 Referral sleep medicine referral - please provider an update on this referral - URGENT PLEASE 2023 024 [email or web address] [facility], [address] [place] [address] , [facility], [place], [address], 4 15:11:46 Procedures None recorded. Surgeries None recorded. Imaging None recorded. Medication Orders albuterol sulfate HFA 90 mcg/actuati on aerosol inhaler 2023 024 [facility], [address] [place], [address], 4 13:39:44 Polytrim 10,000 unit-1 mg/mL eye drops 2023 024 [facility], [address] [place], [address], 4 13:36:06 Patient TargetsNo targets recorded. Patient Instructions Encounter Date Encounter Id Patient Instructions Last Modified By Organization Details Last Modified Time 05/31/2023 [id number] upper respirator y infection (cold): care instructions [email or web address] Not available 05/31/2023 10:32:56 07/20/2023 [id number] 1. Your rapid strep is negative and thus a throat culture is sent for confirmatory measures. This will take 2 days to fully result and we will contact you when it is available. 2. Your COVID and flu test are negative. 3. Lung exam is reassuring without signs of pneumonia or wheeze. However given your report of wheeze at home and coughing fits have sent prescription for an albuterol inhaler to be used as needed during coughing fits, shortness of breath or wheeze. 4. I do expect symptoms will linger and then should slowly begin to improve. If not improving or having worsening please seek follow-up as needed. 5. Work note provided. Not available 07/20/2023 13:40:46 09/14/2023 [id number] 1. You do have a very small corneal abrasion of the right eye from the foreign body that is no longer in the eye. I have sent prescription for an antibiotic eyedrop I would like you to use every 3 hours for the next 5 days. 2. I do expect this medication should improve symptoms. If not improving or worsening please seek follow-up as needed. Not available 09/14/2023 16:44:18 11/21/2023 [id number] sore throat: car e instructions [email or web address] Not available 11/21/2023 17:37:23 Reason for Referral Sleep Medicine Referral for Disturbance in sleep behavior please provider an update on this referral - URGENT PLEASE Referring Physician: Joyce Sylvester, Family Medicine, Encounter Date: 11/03/2023 Results Created Date Observation Date Name Description Value Unit Range Abnormal Flag Note LastModifiedBy Organization Detail LastModifiedTime 05/31/19 24 06/01/2023 THROA T AEROB IC CULTU RE throat aerobic culture Throa t Aerob ic Cultu re APPEA JAY Jose Roberto l Sonia GROWT H(REP ORT) MODER ATE GROWT H Day 1 Resul t ISOLA RAFAEL BELOW O:NF (ORGA NISM ID: 1.1) - JOSE ROBERTO L SONIA Throa t Aerob ic Cultu re (ORGA NISM ID: 1.1) - GROWT H(REP ORT) (ORGA NISM ID: 1.1) - MODER ATE GROWT H Not Available [facility] (Registration ) [address] [facility] , [place], [address], 06/01/2023 12:18:16 05/31/19 24 06/02/2023 THROA T AEROB IC CULTU RE throat aerobic culture Throa t Aerob ic Cultu re APPEA JAY Jose Roberto l Sonia APPEA JAY Jose Roberto l Sonia GROWT H(REP ORT) MODER ATE GROWT H GROWT H(REP ORT) MODER ATE GROWT H Day 1 Resul t ISOLA RAFAEL BELOW Day 2 Resul t ISOLA RAFAEL BELOW O:NF (ORGA NISM ID: 1.1) - JOSE ROBERTO L SONIA Throa t Aerob ic Cultu re (ORGA NISM ID: 1.1) - GROWT H(REP ORT) (ORGA NISM ID: 1.1) - MODER ATE GROWT H Not Available [facility] (Registration ) [address] [place] [address] , [place], [address], 06/02/2023 11:34:31 05/31/19 24 05/31/2023 influ jhonatan virus A + B + SARS- CoV-2 (COVI D19) Ag panel , rapid IA, upper respi rator y speci men Influenza A negati ve Not Available [address], [place], [address], 05/31/2023 10:44:06 05/31/19 24 05/31/2023 influ jhonatan virus A + B + SARS- CoV-2 (COVI D19) Ag panel , rapid IA, upper respi rator y speci men Influenza B negati ve Not Available [address], [place], [address], 05/31/2023 10:44:06 05/31/19 24 05/31/2023 influ jhonatan virus A + B + SARS- CoV-2 (COVI D19) Ag panel , rapid IA, upper respi rator y speci men SARS-COV-2 negati ve Not Available [address], [place], [address], 05/31/2023 10:44:06 05/31/19 24 05/31/2023 influ jhonatan virus A + B + SARS- CoV-2 (COVI D19) Ag panel , rapid IA, upper respi rator y speci men Sample sent for PCR confirmation Yes Not Available [facility] [address], [place], [address], 05/31/2023 10:44:06 05/31/19 24 05/31/2023 rapid strep group A, throa t Strep negati ve Not Available [address], [place], [address], 05/31/2023 10:44:07 05/31/19 24 05/31/2023 rapid strep group A, throa t Sent for confirmation : Yes Not Available Christopher ahumada [address], [place], [address], 05/31/2023 10:44:07 07/20/19 24 07/21/2023 THROA T AEROB IC CULTU RE throat aerobic culture Throa t Aerob ic Cultu re APPEA JAY Jose Roberto l Sonia GROWT H(REP ORT) MODER ATE GROWT H Day 1 Resul t ISOLA RAFAEL BELOW O:NF (ORGA NISM ID: 1.1) - JOSE ROBERTO L SONIA Throa t Aerob ic Cultu re (ORGA NISM ID: 1.1) - GROWT H(REP ORT) (ORGA NISM ID: 1.1) - MODER ATE GROWT H Not Available [facility] (Registration ) [address] [facility] , [place], [address], 07/21/2023 12:06:37 07/20/19 24 07/24/2023 THROA T AEROB IC CULTU RE throat aerobic culture Throa t Aerob ic Cultu re APPEA JAY Jose Roberto l Sonia APPEA JAY Jose Roberto l Sonia GROWT H(REP ORT) MODER ATE GROWT H GROWT H(REP ORT) MODER ATE GROWT H Day 1 Resul t ISOLA RAFAEL BELOW Day 2 Resul t ISOLA RAFAEL BELOW O:NF (ORGA NISM ID: 1.1) - JOSE ROBERTO L SONIA Throa t Aerob ic Cultu re (ORGA NISM ID: 1.1) - GROWT H(REP ORT) (ORGA NISM ID: 1.1) - MODER ATE GROWT H Not Available [facility] (Registration ) [address] [place] [address], [place], [address], 07/24/2023 16:08:24 07/20/19 24 07/20/2023 rapid strep group A, throa t Strep negati ve Not Available [address], [place], [address], 07/20/2023 13:31:28 07/20/19 24 07/20/2023 influ jhonatan virus A + B + SARS- CoV-2 (COVI D19) Ag panel , rapid IA, upper respi rator y speci men Influenza A negati ve Not Available [address], [place], [address], 07/20/2023 13:30:59 07/20/19 24 07/20/2023 influ jhonatan virus A + B + SARS- CoV-2 (COVI D19) Ag panel , rapid IA, upper respi rator y speci men Influenza B negati ve Not Available [address], [place], [address], 07/20/2023 13:30:59 07/20/19 24 07/20/2023 influ jhonatan virus A + B + SARS- CoV-2 (COVI D19) Ag panel , rapid IA, upper respi rator y speci men SARS-COV-2 negati ve Not Available [address], [place], [address], 07/20/2023 13:30:59 11/03/19 24 11/03/2023 COMPL ETE BLOOD COUNT NO DIFF WBC 9.31 10_3/ uL 4.4-10 .8 normal Not Available [address] [place], [address] 11/03/2023 21:13:05 11/03/19 24 11/03/2023 COMPL ETE BLOOD COUNT NO DIFF RBC 5.12 10_6/ uL 3.93-5 .22 normal Not Available [address] [place], [address] 11/03/2023 21:13:05 11/03/19 24 11/03/2023 COMPL ETE BLOOD COUNT NO DIFF HGB 14.7 g/dL 11.2-1 5.7 normal Not Available [address] [place], [address] 11/03/2023 21:13:05 11/03/19 24 11/03/2023 COMPL ETE BLOOD COUNT NO DIFF HCT 44.1 % 36.0-4 6.0 normal Not Available [address] [place], [address] 11/03/2023 21:13:05 11/03/19 24 11/03/2023 COMPL ETE BLOOD COUNT NO DIFF MCV 86 fL 80-95 normal Not Available Stefania ahumada [address] [place], [address] 11/03/2023 21:13:05 11/03/19 24 11/03/2023 COMPL ETE BLOOD COUNT NO DIFF MCH 28.7 pg 27.0-3 3.0 normal Not Available [address] [place], [address] 11/03/2023 21:13:05 11/03/19 24 11/03/2023 COMPL ETE BLOOD COUNT NO DIFF MCHC 33.3 % 32.0-3 6.0 normal Not Available [address] [place], [address] 11/03/2023 21:13:05 11/03/19 24 11/03/2023 COMPL ETE BLOOD COUNT NO DIFF RDW 11.9 % 11.7-1 4.6 normal Not Available [address] [place], [address] 11/03/2023 21:13:05 11/03/19 24 11/03/2023 COMPL ETE BLOOD COUNT NO DIFF platelet count 382 10_3/ uL 130-40 0 normal Not Available [address] [place], [address] 11/03/2023 21:13:05 11/03/19 24 11/03/2023 COMPL ETE BLOOD COUNT NO DIFF MPV 10.1 fL 8.0-11 .0 normal Not Available [address] [place], [address] 11/03/2023 21:13:05 11/03/19 24 11/03/2023 COMPR EHENS FRANKIE METAB OLIC PANEL calcium 9.4 mg/dL 8.5-10 .1 normal Not Available [address] [place], [address] 11/03/2023 21:43:11 11/03/19 24 11/03/2023 COMPR EHENS FRANKIE METAB OLIC PANEL glucose 92 mg/dL 74-106 normal Not Available Stefania ahumada [address] [place], [address] 11/03/2023 21:43:11 11/03/19 24 11/03/2023 COMPR EHENS FRANKIE METAB OLIC PANEL BUN 5 mg/dL 7-18 low Not Available Stefania ahumada [address] [place], [address] 11/03/2023 21:43:11 11/03/19 24 11/03/2023 COMPR EHENS FRANKIE METAB OLIC PANEL creatinine 0.8 mg/dL 0.55-1 .02 normal Not Available [address] [place], [address] 11/03/2023 21:43:11 11/03/19 24 11/03/2023 COMPR EHENS FRANKIE METAB OLIC PANEL estimated GFR 107.44 mL/min /1.73m 2 The eGFR is calcu lated from a serum creat inine using the CKD-E PI 2020 equat ion. Other varia bles requi red for the equat ion are gende r and age; this equat ion does not inclu de a race coeff icien t. This equat ion has simil ar overa ll perfo rmanc e to previ ous equat ions excep t value s may diffe r, in parti cular , in patie nts with highe r value s of eGFR and young er-ag ed adult s. Not Available [address] [place], [address] 11/03/2023 21:43:11 11/03/19 24 11/03/2023 COMPR EHENS FRANKIE METAB OLIC PANEL total protein 7.5 g/dL 6.4-8. 2 normal Not Available [address] [place], [address] 11/03/2023 21:43:11 11/03/19 24 11/03/2023 COMPR EHENS FRANKIE METAB OLIC PANEL albumin 4.2 g/dL 3.4-5. 0 normal Not Available [address] [place], [address] 11/03/2023 21:43:11 11/03/19 24 11/03/2023 COMPR EHENS FRANKEI METAB OLIC PANEL bilirubin, total 0.50 mg/dL 0.2-1. 0 normal Not Available [address] [place], [address] 11/03/2023 21:43:11 11/03/19 24 11/03/2023 COMPR EHENS FRANKIE METAB OLIC PANEL alk phos 100 U/L 46-116 normal Not Available [address] [place], [address] 11/03/2023 21:43:11 11/03/19 24 11/03/2023 COMPR EHENS FRANKIE METAB OLIC PANEL sodium 141 mmol/ L 136-14 5 normal Not Available [address] [place], [address] 11/03/2023 21:43:11 11/03/19 24 11/03/2023 COMPR EHENS FRANKIE METAB OLIC PANEL potassium 4.4 mmol/ L 3.5-5. 1 normal Not Available [address] [place], [address] 11/03/2023 21:43:11 11/03/19 24 11/03/2023 COMPR EHENS FRANKIE METAB OLIC PANEL chloride 104 mmol/ L 98-107 normal Not Available [address] [place], [address] 11/03/2023 21:43:11 11/03/19 24 11/03/2023 COMPR EHENS FRANKIE METAB OLIC PANEL CO2 26.5 mmol/ L 21.0-3 2.0 normal Not Available [address] [place], [address] 11/03/2023 21:43:11 11/03/19 24 11/03/2023 COMPR EHENS FRANKIE METAB OLIC PANEL anion gap 10.5 mmol/ L 3-11 normal Not Available [address] [place], [address] 11/03/2023 21:43:11 11/03/19 24 11/03/2023 COMPR EHENS FRANKIE METAB OLIC PANEL AST 19 U/L 15-37 normal Not Available Stefania [address] [place], [address] 11/03/2023 21:43:11 11/03/19 24 11/03/2023 COMPR EHENS FRANKIE METAB OLIC PANEL ALT 25 U/L 14-59 normal Not Available Stefania ahumada [address] [place], [address] 11/03/2023 21:43:11 11/03/19 24 11/03/2023 TIKI TIN ferritin 19 NG/mL 8-252 normal Not Available [facility] (Registration ) [address] [place] [address] [place], [address], 11/03/2023 21:43:11 11/03/19 24 11/03/2023 TSH (W/RE F FT4) TSH (w/ref FT4) 1.24 uIU/m L 0.36-3 .74 normal Not Available [facility] (Registration ) [address] [place] [address] [place], [address], 11/03/2023 21:43:12 11/03/19 24 11/03/2023 IRON AND IBCT iron 140 ug/dL 50-170 normal Not Available [facility] (Registration ) [address] [place] [address] [place], [address], 11/03/2023 22:03:13 11/03/19 24 11/03/2023 IRON AND IBCT total iron binding capacity 391 ug/dL 250-45 0 normal Not Available [facility] (Registration ) [address] [place] [address] [place], [address], 11/03/2023 22:03:13 11/03/19 24 11/03/2023 IRON AND IBCT transferrin sat 36 % 15-50 normal Not Available [facility] (Registration ) [address] [place] [address] [place], [address], 11/03/2023 22:03:13 11/21/19 24 11/22/2023 THROA T AEROB IC CULTU RE throat aerobic culture Throa t Aerob ic Cultu re APPEA JAY Jose Roberto l Sonia GROWT H(REP ORT) SCANT GROWT H Day 1 Resul t ISOLA RAFAEL BELOW O:NF (ORGA NISM ID: 1.1) - JOSE ROBERTO L SONIA Throa t Aerob ic Cultu re (ORGA NISM ID: 1.1) - GROWT H(REP ORT) (ORGA NISM ID: 1.1) - SCANT GROWT H Not Available [facility] (Registration ) [address] [place] [address] [place], [address], 11/22/2023 14:42:10 11/21/19 24 11/23/2023 THROA T AEROB IC CULTU RE throat aerobic culture Throa t Aerob ic Cultu re APPEA JAY Jose Roberto l Sonia APPEA JAY Jose Roberto l Sonia GROWT H(REP ORT) SCANT GROWT H GROWT H(REP ORT) HEAVY GROWT H Day 1 Resul t ISOLA RAFAEL BELOW Day 2 Resul t ISOLA RAFAEL BELOW O:NF (ORGA NISM ID: 1.1) - JOSE ROBERTO L SONIA Throa t Aerob ic Cultu re (ORGA NISM ID: 1.1) - GROWT H(REP ORT) (ORGA NISM ID: 1.1) - HEAVY GROWT H Not Available [facility] (Registration ) [address], [place], [address], 11/23/2023 11:13:48 11/21/19 24 11/21/2023 influ jhonatan virus A + B + SARS- CoV-2 (COVI D19) Ag panel , rapid IA, upper respi rator y speci men Influenza A negati ve Not Available [address], [place], [address], 11/21/2023 17:11:47 11/21/19 24 11/21/2023 influ jhonatan virus A + B + SARS- CoV-2 (COVI D19) Ag panel , rapid IA, upper respi rator y speci men Influenza B negati ve Not Available [address], [place], [address], 11/21/2023 17:11:47 11/21/19 24 11/21/2023 influ jhonatan virus A + B + SARS- CoV-2 (COVI D19) Ag panel , rapid IA, upper respi rator y speci men SARS-COV-2 negati ve Not Available [address], [place], [address], 11/21/2023 17:11:47 11/21/19 24 11/21/2023 rapid strep group A, throa t Strep negati ve Not Available [address], [place], [address], 11/21/2023 17:11:40 12/15/19 24 12/15/2023 x-ray imagi ng repor t Patifer t Name: Efrain Browning Unit #: [id number] Loc: ER Orderi ng Provid er: Dorene Lucas M.D. Accoun t #: [id number] Status : PRE ER Primar y Care Provid er: Joyce Sylvester Date of Exam: Sex: F Admiss ion Date: : 2000 Age: 23 Exam(s ) XR WRIST LT COMPLE TE EXAM: XR WRIST LT COMPLE TE CLINIC AL HISTOR Y: pain. TECHNI QUE: 2D digita l imagin g was perfor med. COMPAR ROXANA: No exams were availa ble for compar roxana FINDIN GS: 3 views No eviden ce of fractu re nor carpal disloc ation. No signif icant ulnar varian ce. Scapho id and scapho lunate distan ce normal . Bone densit y normal . No osseou s lesion s. IMPRES MICHELLE: No acute osseou s findin gs in the left wrist. DATA REPOSI TORY: RADIAT ION DOSE DELIVE RED: Ordere d By: Dorene Lucas M.D. CC: ------ ------ ------ ------ ------ ------ ------ ------ ------ ------ ------ ------ - Dictat ed By: Shemar Zamorano M.D. 1111 1111 Transc ribed By: Jaun LAI,Ebony citlali 1111 This is privil eged, confid ential inform ation intend ed only for the provid er named. Any use or distri bution by any person other than this provid er is strict ly prohib ited. If you receiv e this report in error, please notify us immedi ately at [phone] and return the origin al report to us at the addres s above. Thank- you. [email or web address] [facility] [address] [place], [address] 12/15/2023 11:36:06 Result Notes None recorded. Problems Name Problem SNOMED Code Status Onset Date Resolution Date Notes Provider Name and Address Organization Details Recorded Time COVID-19 288048831 Completed 202108/03/2023 Problem Code: U07.1; Problem Code Type: ICD-10; [facility] 4 20:11:32 Acute pharyngi tis 204761112 Completed 202208/05/2022 Problem Code: J02.9; Problem Code Type: ICD-10; Not Available [facility] 3 05:46:05 Upper respirat ory tract infectio n caused by Influenz a virus 48850024396 762054 Completed 202208/03/2023 Problem Code: J11.1; Problem Code Type: ICD-10; [facility] 4 20:12:23 Bunion 078112183 Active 2017 [facility] 4 20:11:12 Contrace ption care manageme nt Active 2022 [facility] 4 20:11:30 Acquired hallux valgus 98077201 Active 2022 s/p alyssa osteotom y 0 [facility] 4 20:11:05 Irregula r periods 30031877 Active 2014 [facility] 4 20:11:50 Left lower quadrant pain 059166586 Active 2022 [facility] 4 20:11:55 Excessiv e and frequent menstrua tion 636672478 Active 2022 [facility] 4 20:11:40 Chronic sinusiti s 48601360 Active 2022 [facility] 4 20:11:20 Major depressi on, single episode 29385454 Active 2022 [facility] 4 20:12:07 Contact dermatit is caused by plants Active 2022 [facility] 4 20:11:26 Nicotine dependen ce 15571820 Active 2022 [facility] 4 20:12:17 Diarrhea 67195269 Completed 202201/07/2023 Problem Code: R19.7; Problem Code Type: ICD-10; Not Available [facility] 3 05:46:07 Exposure to communic able disease Completed 202101/11/2023 Problem Code: Z20.828; Problem Code Type: ICD-10; Not Available [facility] 3 05:46:07 Upper respirat ory infectio n 89857318 Completed 202308/03/2023 [facility] 4 20:12:21 Abrasion of right cornea 29257410534 134544 Active 2023 ANGELIQUE HENRY PA-C [address], [place], [address] , [facility] 4 16:41:37 Disturba nce in sleep behavior 16043227 Active [address], [place], [address] , [facility] 4 12:05:41 Problem Notes None recorded. Procedures Surgical History None recorded. Imaging Results Imaging Date Name Status LastModified by Organiz ation Details LastModified Time 12/15/2023 x-ray imaging report completed [id number] [facility] [address], [place], [address] 12/15/2023 11:36:06 Procedure Notes None recorded. Medical Equipment None Reported. Allergies Allergen ID Allergen Name Allergen Category Reaction Reaction Severity Criticality Documentation Date Start Date Code Code System Note Provider Name and Address Organization Details Recorded Time 81960 red dye food,medi cation rash Not available low 05/31/2023 KELSEY Smith, [facility] 4 09:57:22 61122 morphine medicatio n Not available Not available Not available 05/31/2023 7052 RxNorm Pretty KELSEY Anne, [facility] 4 09:57:30 Medications Name Sig Start Date Stop Date Status Note LastModified by Organization Details LastModified Time cyclobenzap rine 10 mg tablet TAKE ONE TABLET BY MOUTH THREE TIMES A DAY NEEDED 11/02 completed Not Available Not Available Not Available triamcinolo ne acetonide 0.5 % topical cream Apply 1 as directed to affected area twice a day as directed on scheduled days 11/02 completed Not Available Not Available Not Available polymyxin B sulfate 10,000 unit-trimet hoprim 1 mg/mL eye drops INSTILL ONE DROP INTO AFFECTED EYE(S) EVERY 3 HOURS WHILE AWAKE FOR 5 DAYS 10/30 completed Not Available Not Available Not Available ondansetron 4 mg disintegrat ing tablet Take 1 tablet by mouth every eight hours as needed 12/07 completed Not Available Not Available Not Available Ventolin HFA 90 mcg/actuati on aerosol inhaler INHALE TWO PUFFS BY MOUTH EVERY 4 HOURS NEEDED FOR COUGHING FITS, SHORTNESS OF BREATH OR WHEEZE active Not Available Not Available No t Available medroxyprog esterone 150 mg/mL intramuscul ar syringe 11/02 completed Not Available Not Available Not Available Nexplanon active Not Available Not Antonietta ilable Not Available Vitals Date Recorded Body height Body mass index (BMI) Body mass index (BMI) Percentile per age and sex Body weight Respiratory rate Body temperature Oxygen saturation Oxygen saturation in Arterial blood by Pulse oximetry Heart rate Systolic blood pressure Diastolic blood pressure Provider Name and Address Organization Details Last Updated DateTime 4 160.02 cm 23 kg/m2 62 % 26897.0 1 g 16 /min 97.4 [degF] 97 % 97 % 98 /min 121 mm[Hg] 89 mm[Hg] Pretty Anne MA [facility], [facility]. 4 09:58:54 Date Recorded Body height Body mass index (BMI) Body weight Respiratory rate Body temperature Oxygen saturation Oxygen saturation in Arterial blood by Pulse oximetry Heart rate Systolic blood pressure Diastolic blood pressure Provider Name and Address Organization Details Last Updated DateTime 4 160.02 cm 23 kg/m2 86642.0 1 g 16 /min 98.1 [degF] 98 % 98 % 99 /min 119 mm[Hg] 78 mm[Hg] Pretty Anne MA [facility], [facility] 4 13:17:01 Date Recorded Body height Body mass index (BMI) Body weight Body temperature Oxygen saturation Oxygen saturation in Arterial blood by Pulse oximetry Heart rate Respiratory rate Systolic blood pressure Diastolic blood pressure Provider Name and Address Organization Details Last Updated DateTime 4 160.02 cm 22.7 kg/m2 28516.8 2 g 98.5 [degF] 97 % 97 % 96 /min 22 /min 106 mm[Hg] 66 mm[Hg] Shakira Shirley [facility], [facility] 4 16:15:37 Date Recorded Body height Body mass index (BMI) Body weight Body temperature Oxygen saturation Oxygen saturation in Arterial blood by Pulse oximetry Heart rate Systolic blood pressure Diastolic blood pressure Provider Name and Address Organization Details Last Updated DateTime 4 160.02 cm 23.6 kg/m2 92810.7 9 g 97.3 [degF] 98 % 98 % 84 /min 114 mm[Hg] 70 mm[Hg] JOSIE CABRERA MA [facility], [facility]. 4 11:41:48 Date Recorded Body height Body mass index (BMI) Body weight Body temperature Heart rate Oxygen saturation Oxygen saturation in Arterial blood by Pulse oximetry Respiratory rate Systolic blood pressure Diastolic blood pressure Provider Name and Address Organization Details Last Updated DateTime 4 160.02 cm 22.7 kg/m2 05274.8 2 g 98.9 [degF] 107 /min 97 % 97 % 18 /min 117 mm[Hg] 80 mm[Hg] NEFTALY CORTES MA [facility] 17:07:54 Social History Question Answer Notes LastModified by Organizat ion Details LastModified Time Tobacco Smoking Status Current Every Day Smoker Pretty Anne MA [facility], [facility] 05/31/2023 09:57:47 Do You Or Have You Ever Used E-cigarettes Or Vape? Current User Of Electronic Cigarettes Information not available 09/14/2023 What Was The Date Of Your Most Recent Tobacco Screening? 09/14/2023 Information not available 09/14/2023 Do You Or Have You Ever Used Smokeless Tobacco? Never Used Smokeless Tobacco Information not available 09/14/2023 Has Tobacco Cessation Counseling Been Provided? Yes [email or web address] Information not available 05/31/2023 On What Date Was Tobacco Cessation Counseling Provided? 09/14/2023 Information not available 09/14/2023 Do You Or Have You Ever Used Any Other Forms Of Tobacco Or Nicotine? Yes Information not available 09/14/2023 How Many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
--- OUTSIDE RECORDS SUMMARY | 2024-01-04 22:34 | XMS_ITS | Encounter Summary ---
Author Organization [facility] Address [address] [place] [address] Care Team Providers Care Education Coordinator Name Role Phone Unavailable Primary Care Provider Unavailabl e Encounter Details Date Type Department Care Team (Late st Contact Info) Description 09/05/2020 Results Only [facility] [address] [place] [address] Lynn Dahl MD [address] [place] [address] Social History Tobacco Use Types [...] 141 136 - 145 mEq/L 09/05/2020 16:35 [facility] Potassium 3.1(L) 3.5 - 5.1 mEq/L 09/05/2020 16:35 [facility] Chloride 104 96 - 107 mEq/L 09/05/2020 16:35 [facility] CO2 Total 27.3 21 - 32 mEq/L 09/05/2020 16:35 [facility] Anion Gap 9.7 mEq/L 09/05/2020 16:35 [facility] BUN 12 7 - 25 mg/dl 09/05/2020 16:35 [facility] Creatinine 0.80 0.55 - 1.02 mg/dl 09/05/2020 16:35 [facility] Estimated GFR >60 >60 09/05/2020 16:35 [facility] Comment: EGFR UNITS: mL/min/1.73 m 2 CKD-EPI Equation used to calculate. Glucose 78 74 - 106 mg/dl 09/05/2020 16:35 [facility] Calcium 8.9 8.5 - 10.1 mg/dl 09/05/2020 16:35 [facility] 09/05/2020 16:1 6 EDT 09/05/2020 16:16 [facility] Narrative [facility] - 09/05/2020 16:47 EDT Sample collected at time of saline lock or IV placement. Lynn Dahl MD CHEMISTRY & BLOOD G ORDERABLES [facility] [address] [place] [address] * COMPLETE BLOOD COUNT AND DIFFERENTIAL (09/05/2020 16:16 EDT) WBC 9.6 4.0 - 10.5 10 3/uL 09/05/2020 16:32 [facility] RBC 4.66 4.20 - 5.40 10 6/uL 09/05/2020 16:32 [facility] Hemoglobin 13.2 12.5 - 16.0 g/dL 09/05/2020 16:32 [facility] HCT 39.5 37.0 - 47.0 % 09/05/2020 16:32 [facility] MCV 84.8 78 - 100 fL 09/05/2020 16:32 [facility] MCH 28.3 27 - 31 pg 09/05/2020 16:32 [facility] MCHC 33.4 32 - 37 g/dL 09/05/2020 16:32 [facility] RDW-CV - PMC 11.7 <14.7 % 09/05/2020 16:32 [facility] PLATELET COUNT - PMC 344 150 - 450 10 3/uL 09/05/2020 16:32 [facility] MPV 9.8 9.2 - 12.0 fL 09/05/2020 16:32 [facility] NEUTROPHILS % (AUTO) - PMC 61.8 % 09/05/2020 16:32 [facility] LYMPHOCYTES % (AUTO) - PMC 29.6 % 09/05/2020 16:32 [facility] MONOCYTES % (AUTO) - PMC 7.2 % 09/05/2020 16:32 [facility] EOSINOPHILS % (AUTO) - PMC 0.8 % 09/05/2020 16:32 [facility] BASOPHILS % (AUTO) - PMC 0.4 % 09/05/2020 16:32 [facility] Immature Granulocyte % (Auto) 0.2 % 09/05/2020 16:32 [facility] NUCLEATED RBC % (AUTO) - PMC 0.0 % 09/05/2020 16:32 [facility] NEUTROPHILS # (AUTO) - PMC 5.9 1.5 - 6.6 10 3/uL 09/05/2020 16:32 [facility] LYMPHOCYTES # (AUTO) - PMC 2.8 1.0 - 3.5 10 3/uL 09/05/2020 16:32 [facility] MONOCYTES # (AUTO) - PMC 0.7 <1.0 10 3/uL 09/05/2020 16:32 EDT [facility] EOSINOPHILS # (AUTO) - PMC 0.1 <0.7 10 3/uL 09/05/2020 16:32 T [facility] Absolute Immature Granulocyte 0.02 <0.06 10 3/uL 09/05/2020 16:32 T [facility] DIFFERENTIAL METHOD Auto Differential 09/05/2020 16:17 T [facility] 09/05/2020 16:1 6 EDT 09/05/2020 16:17 EDT [facility] - 09/05/2020 16:32 EDT Sample collected at time of saline lock or IV placement. Lynn Dahl MD PACKAGES & DNA PROB E ORDERABLES Performing Organization Address City/[facility]/ZIP Co de Phone Number [facility] [address] [place] [phone] * (ABNORMAL) UA MICROSCOPIC - PMC (09/05/2020 16:01 EDT) URINE RBC - PMC 3-10(A) 0 - 2 hpf 16:18 [facility] URINE WBC - PMC None seen 0 - 3 hpf 16:18 [facility] URINE BACTERIA - PMC None Seen None Seen hpf 09/05/2020 16:18 [facility] URINE MUCUS - PMC Present lpf 09/05/2020 16:18 [facility] URINE SQUAMOUS EPITHELIAL CELL - PMC Few None-Few hpf 09/05/2020 16:18 T [facility] 09/05/2020 16:0 1 EDT 09/05/2020 16:06 EDT [facility] - 09/05/2020 16:18 EDT Collection Method Unknown Lynn Dahl MD CHEMISTRY & BLOOD G ORDERABLES Performing Organization Address [facility]/ZIP Co de Phone Number [facility] [address] [place] [phone] * TEST, URINE (09/05/2020 16:01 EDT) Test, Urine Negative Negative 09/05/2020 16:17 [facility] 09/05/2020 16:0 1 EDT 09/05/2020 16:06 EDT Narrative [facility] - 09/05/2020 16:18 EDT Collection Method Unknown Lynn Dahl MD URINALYSIS ORDERABL ES [facility] [address] [place] [address] * (ABNORMAL) UA (CULTURE IF POSITIVE) - PMC (09/05/2020 16:01 EDT) [facility] URINE COLOR - PMC Yellow Straw/Yelow 09/05/2020 16:09 [facility] URINE APPEARANCE - PMC Clear Clr/Hazy 09/05/2020 16:09 [facility] URINE PH - PMC 6.0 4.6 - 8.0 09/05/2020 16:09 [facility] UR SPECIFIC GRAVITY (REFRACTOM) - PMC 1.025 1.001 - 1.035 09/05/2020 16:11 [facility] URINE PROTEIN - PMC Negative Negative mg/dL 09/05/2020 16:09 [facility] URINE GLUCOSE (UA) - PMC Negative Negative mg/dL 09/05/2020 16:09 [facility] URINE KETONES - PMC Negative Negative mg/dL 09/05/2020 16:09 [facility] URINE BILIRUBIN - PMC Negative Negative 09/05/2020 16:09 [facility] URINE BLOOD - PMC Moderate(A) Negative 09/05/2020 16:09 [facility] URINE UROBILINOGEN - PMC 0.2 0.2 - 1.0 E.U./dL 09/05/2020 16:09 [facility] URINE NITRATE - PMC Negative Negative 09/05/2020 16:09 [facility] URINE LEUKOCYTE ESTERASE - PMC Negative Negative 09/05/2020 16:09 [facility] URINE CULTURE COMMENTS - PMC CRITERIA NOT MET 09/05/2020 16:18 EDT [facility] Comment:Specimen does not me et criteria for culture. 09/05/2020 16:0 1 EDT 09/05/2020 16:06 EDT Narrative [facility] - 09/05/2020 16:18 EDT Collection Method Unknown Lynn Dahl MD MICROBIOLOGY - [facility] ORDERABLES Performing Organization Address City/State/[facility] Co de Phone Number [facility] [address] [place] [address] documented in this encounter Visit Diagnoses Not on filedocumented in this encounter
--- OUTSIDE RECORDS SUMMARY | 2024-01-04 22:34 | XMS_ITS | Encounter Summary ---
Author Organization [facility] Address [address] [place] [address] Care Team Providers Care Precision Farming Coordinator Name Role Phone Unknown, Provider Primary Care Provider Encounter Details Date Type Department Care Team (Late st Contact Info) Description 11/15/2022 Lab Requisition [facility] Pathology & Laboratory Medicine - [facility] [address] [place] [address] Outr Resulting Lab, Provider Social History Tobacco [...] Result Negative Negative 11/16/2022 13:46 EDT [facility] Chlamydia trachomatis Result Negative Negative 11/16/2022 13:46 EDT [facility] Urine URINE / Unknown 11/15/2022 1 3:30 EDT 11/15/2022 22:02 EDT Narrative [facility] - 11/16/2022 13:46 EDT A first catch urine specimen is acceptable for detection of Gonorrhea and Chlamydia, but might detect up to 10% fewer infections when compared with vaginal and endocervical swab samples. Provider Outr Resulting Lab MICROBIOLOGY - GENERAL ORDERABLES [facility] [address] [place] [address] documented in this encounter Visit Diagnoses Not on filedocumented in this encounter Care Teams [employer] Coordinator Relationship Specialty Start Date End Date Unknown, Provider, PCP - General 07/16/21 documented as of this encounter
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
--- OUTSIDE RECORDS SUMMARY | 2024-01-04 22:34 | XMS_ITS | Encounter Summary ---
Author Organization [facility] Address [address] [place] [address] Care Team Providers Care Riddler Operator Name Role Phone Unknown, Provider Primary Care Provider Reason for Visit * Reason Comments New Patient Visit eczema on hands, bum py fingernails * Consult (Routine) - Authorization Not Required Specialty Diagnoses / Procedures Referred By Reynold carty Referred To Contact Dermatology Diagnoses Derm[place] [address] [place] [address] [place] [address] [address] [place] [address] Referral ID Status Reason Start Date Expiration Date Visits Requested Visits Authorized [id number] Authorization Not Required 1 1 Encounter Details Date Type Department Care Team (Late st Contact Info) Description 09/27/2021 10:30 EDT Office Visit [facility] Dermatology 3rd [address] [address] Shayy Robert MD [address] [place] [address], [address] 3 [place] [id number] Hand dermatitis (Primary Dx) Social History Tobacco [...] My favorite moisturizer for hands is: Neutrogena Cambodian formula I'm hoping you'll get the tacrolimus [...] Patient Visit (eczema on hands, bumpy fingernails) Ctahy is here today for hand dermatitis. This [...] and topical calcineurin inhibitor. She lives in [place], so light therapy is not an option for her. - Prescribed clobetasol 0.05% ointment to apply BID on weekends to the hands followed by thick moisturizer such as Neutrogena Cambodian formula. - Prescribed tacrolimus 0.1% ointment to [...] 09/27/2021 added in this encounter Care Teams Riddler Operator Relationship Specialty Start Date End Date Unknown, Provider, PCP - General 07/16/21 documented as of this encounter
--- OUTSIDE RECORDS SUMMARY | 2024-01-04 22:34 | XMS_ITS | Encounter Summary ---
Author Organization [facility] Address [address] [place] [address] Care Team Providers Care Tool Grinder Operator Surface Name Role Phone Unknown, Provider Primary Care Provider Encounter Details Date Type Department Care Team (Late st Contact Info) Description 03/23/2020 Lab Requisition [facility] Pathology & Laboratory Medicine - [address] [address] Outr Resulting Lab, Provider Social History Tobacco [...] 4th Generation Negative Negative 03/24/2020 12:40 EST [facility] Comment: If acute HIV-1 infection is suspected in a high risk ??patient, submit plasma specimen for HIV-1 RNA quantitation test. Fourth Generation assay performed on the Siemens Centaur. Blood VENOUS BLOOD / Unknown 03/23/2020 10:07 EST 03/23/2020 15:45 EST Provider Outr Resulting Lab IMMUNOLOGY A ND SEROLOGY ORDERABLES [facility] [address] [place] [address] documented in this encounter Visit Diagnoses Not on filedocumented in this encounter Additional Health Concerns Infection Onset Date Last Indicated Resolved Time COVID-19 04/21/2021 04/21/2021 05/11/2021 22:1 5 EST documented as of this encounter Care Teams Tool Grinder Operator Surface Relationship Specialty Start Date End Date Unknown, Provider, PCP - General 07/16/21 documented as of this encounter
--- OUTSIDE RECORDS SUMMARY | 2024-01-04 22:34 | XMS_ITS | Encounter Summary ---
Author Organization [facility] Address [address] [place] [address] Care Team Providers Care Dietetic Tech Name Role Phone Unknown, Provider Primary Care Provider Encounter Details Date Type Department Care Team (Late st Contact Info) Description 06/22/2020 Lab Requisition [facility] Pathology & Laboratory Medicine - [facility] [address] [place] [address] Outr Resulting Lab, Provider Social History Tobacco [...] Outr Resulting Lab MICROBIOLOGY - GENERAL ORDERABLES [facility] [address] [place] [address] * COVID-19 TESTING (06/22/2020 7:45 EST) COVID-19 rt-PCR Result Negative Negative 06/22/2020 17:51 EST [facility] Comment: This test [...] history, and epidemiological information. Performed on the [employer] Fusion instrument Performing Lab [place] [facility] Lab 06/22/2020 17:51 EST [facility] Swab 06/22/2020 7:45 EST 06/22/2020 15:08 EST Provider Outr Resulting Lab MICROBIOLOGY - GENERAL ORDERABLES [facility] [address] [place] [address] documented in this encounter Visit Diagnoses Not on filedocumented in this encounter Additional Health Concerns Infection Onset Date Last Indicated Resolved Time COVID-19 04/21/2021 04/21/2021 05/11/2021 22:1 5 EST documented as of this encounter Care Teams Dietetic Tech Relationship Specialty Start Date End Date Unknown, Provider, PCP - General 07/16/21 documented as of this encounter
--- OUTSIDE RECORDS SUMMARY | 2024-01-04 22:34 | XMS_ITS | Encounter Summary ---
Author Organization [facility] Address [address] [place] [address] Care Team Providers Care Pedal Assembler Name Role Phone Unknown, Provider Primary Care Provider Encounter Details Date Type Department Care Team (Late st Contact Info) Description 01/31/2022 Lab Requisition [facility] Pathology & Laboratory Medicine - [facility] [address] [place] [address] Outr Resulting Lab, Provider Social History Tobacco [...] 12:00 EDT) Hold Hold 01/31/2022 18:01 EDT [facility] Blood VENOUS BLOOD / Unknown 01/31/2022 12:00 EDT 01/31/2022 16:53 EDT Provider Outr Resulting Lab LAB INFO SER VICE AND SUPPORT & PHONE RESULT Performing Organization Address City/[facility]/ZIP Co de Phone Number [facility] [address] [place] [address] * HOLD SST (01/31/2022 12:00 EDT) Hold Hold 01/31/2022 18:01 EDT [facility] Blood VENOUS BLOOD / Unknown 01/31/2022 12:00 EDT 01/31/2022 16:53 EDT Provider Outr Resulting Lab LAB INFO SER VICE AND SUPPORT & PHONE RESULT Performing Organization Address [facility] de Phone Number [facility] [address] [place] [address] * FSH (01/31/2022 12:00 EDT) FSH 5.5 See Note mIU/mL 01/31/2022 18:05 EDT [facility] Blood VENOUS BLOOD / Unknown 01/31/2022 12:00 EDT 01/31/2022 16:53 EDT Narrative [facility] - 01/31/2022 18:05 EDT NOTE: [...] & BLOOD GAS ORDERABLES Performing Organization Address [facility] Co de Phone Number [facility] [address] [place] [address] * PROLACTIN (01/31/2022 12:00 EDT) Prolactin 7.9 See Note ng/mL 01/31/2022 18:05 EDT [facility] Comment: NOTE: Female Reference Ranges: PHYSIOLOGICAL STATUS ?REFERENCE RANGE ? Postmenopausal ?1.8 - 20.3 ng/mL ?9.7 - 208.5 ng/mL Non- ?2.8 - 29.2 ng/mL Blood VENOUS BLOOD / Unknown 01/31/2022 12:00 EDT 01/31/2022 16:53 EDT Provider Outr Resulting Lab CHEMISTRY & BLOOD GAS ORDERABLES Performing Organization Address [facility] Co de Phone Number [facility] [address] [place] [address] * DHEA SULFATE (01/31/2022 12:00 EDT) DHEA Sulfate 174 61 - 494 ug/dL 02/02/2022 9:43 EDT [facility] Blood VENOUS BLOOD / Unknown 01/31/2022 12:00 EDT 01/31/2022 16:53 EDT Provider Outr Resulting Lab CHEMISTRY & BLOOD GAS ORDERABLES [facility] [address] [place] [address] documented in this encounter Visit Diagnoses Not on filedocumented in this encounter Care Teams Pedal Assembler Relationship Specialty Start Date End Date Unknown, Provider, PCP - General 07/16/21 documented as of this encounter
--- OUTSIDE RECORDS SUMMARY | 2024-01-04 22:34 | XMS_ITS | Encounter Summary ---
Author Organization [facility] Address [address] [place] [address] Care Team Providers Care Chicken Cutter Name Role Phone Unknown, Provider Primary Care Provider Encounter Details Date Type Department Care Team (Late st Contact Info) Description 03/18/2020 Lab Requisition [facility] Pathology & Laboratory Medicine - [address] [address] Outr Resulting Lab, Provider Social History Tobacco [...] gonorrhoeae Result Negative Negative 03/19/2020 14:52 EST [facility] Chlamydia trachomatis Result Negative Negative 03/19/2020 14:52 EST [facility] Swab ENTIRE VAGINA / Unknown 03/18/2020 8:40 EST 03/18/2020 17:19 EST Provider Outr Resulting Lab MICROBIOLOGY - GENERAL ORDERABLES [facility] [address] [place] [address] documented in this encounter Visit Diagnoses Not on filedocumented in this encounter Additional Health Concerns Infection Onset Date Last Indicated Resolved Time COVID-19 04/21/2021 04/21/2021 05/11/2021 22:1 5 EST documented as of this encounter Care Teams Chicken Cutter Relationship Specialty Start Date End Date Unknown, Provider, PCP - General 07/16/21 documented as of this encounter
--- OUTSIDE RECORDS SUMMARY | 2024-01-04 22:34 | XMS_ITS | Encounter Summary ---
Author Organization [facility] Address [address] [place] [address] Care Team Providers Care Manufacturing Plant Controller Name Role Phone Unknown, Provider Primary Care Provider Encounter Details Date Type Department Care Team (Late st Contact Info) Description 07/06/2022 Lab Requisition [facility] Pathology & Laboratory Medicine - [facility] [address] [place] [address] Outr Resulting Lab, Provider Social History Tobacco [...] Priority Date/Time Associated Diagnosis Comments [facility] Today 07/05/2022 13:32 EDT COVID-19 TESTING Routine 07/05/2022 13:3 2 EDT documented in this encounter Results * COVID-19 TEST [facility] LAB PCR (07/05/2022 13:32 EDT) Swab ENTIRE NASOPHARYNX / Unknown 07/05/2022 13:32 EDT 07/06/2022 16:43 EDT Provider Outr Resulting Lab MICROBIOLOGY - GENERAL ORDERABLES [facility] [address] [place] [address] * COVID-19 TESTING (07/05/2022 13:32 EDT) COVID-19 rt-PCR Result Negative Negative 07/06/2022 23:[address] [facility] Comment: This test has [...] history, and epidemiological information. Performed on the [employer] Fusion instrument Performing Lab [place] [facility] Lab 07/06/2022 23:[address] [facility] Swab ENTIRE NASOPHARYNX / Unknown 07/05/2022 13:32 EDT 07/06/2022 16:43 EDT Provider Outr Resulting Lab MICROBIOLOGY - GENERAL ORDERABLES [facility] [address] [place] [address] documented in this encounter Visit Diagnoses Not on filedocumented in this encounter Care Teams Manufacturing Plant Controller Relationship Specialty Start Date End Date Unknown, Provider, PCP - General 07/16/21 documented as of this encounter
--- OUTSIDE RECORDS SUMMARY | 2024-01-04 22:34 | XMS_ITS | Encounter Summary ---
Author Organization [facility] Address [facility] [place] [address] Care Team Providers Care Telegraph Service Clerk Name Role Phone Jonathan Penaloza MD Primary Care Provider [phone] Encounter Details Date Type Department Care Team (Latest Contact Info) Description 06/21/2016 - 06/21/2016 12:04 AM EST Hospital Encounter Radiology Library at [facility] [place] [address] Dave Keys MD [facility] [place] [address] Pain Discharge Disposition: Home Social History Tobacco [...] Lower Extremity (06/21/2016 12:00 AM EST) Narrative [facility] - 06/22/2016 2:41 PM EST This exam is for storage only and is auto-finalizing. Dave Keys MD IMG FILM LIBRARY O RDERABLES [place], [place] documented in this encounter Visit Diagnoses Diagnosis Pain Generalized pain documented in this encounter Care Teams Telegraph Service Clerk Relationship Specialty Start Date End Date Jonathan Penaloza MD [address] [facility] [place] [address] PCP - General 03/09/10 documented as of this encounter
--- OUTSIDE RECORDS SUMMARY | 2024-01-04 22:34 | XMS_ITS | Clinical Summary ---
Author Organization [facility] Address [address] [place] [address] Care Team Providers Care Mill Tender Washing Name Role Phone Unknown, Provider Primary Care [...] C Antibody Negative Negative 03/24/2020 10:57 EST [facility] Blood VENOUS BLOOD / Unknown 03/23/2020 10:07 EST 03/23/2020 15:45 EST Provider Outr Resulting Lab CHEMISTRY & BLOOD GAS ORDERABLES [facility] [address] [place] [address] from Last 3 Months or Most Recently Relevant to Health Maintenance Care Teams Mill Tender Washing Relationship Specialty Start Date End Date Unknown, MD Jean[facility]Paul [facility] - General 07/16/21
--- OUTSIDE RECORDS SUMMARY | 2024-01-04 22:34 | XMS_ITS | Encounter Summary ---
Author Organization [facility] Address [address] [place] [address] Care Team Providers Care Head Loft Worker Name Role Phone Unknown, Provider Primary Care Provider Encounter Details Date Type Department Care Team (Late st Contact Info) Description 08/19/2021 Lab Requisition [facility] Pathology & Laboratory Medicine - [facility] [address] [place] [address] [address] Alanis [address] [place] [address] [place] [id number] Encounter for other general examination Social History [...] Name Priority Date/Time Associated Diagnosis Comments NON BOAT OPERATOR/FNA CYTOLOGY Today 08/18/2021 9:30 EDT Encounter for other general examination documented in this encounter Results * NON BOAT OPERATOR/FNA CYTOLOGY (08/18/2021 9:30 EDT) Note to Patient The following pathology results have been interpreted by your pathologist and may be available to you before your health provider has had the opportunity to review them. Please allow time for your provider to receive these results and explore management options, if applicable. 08/19/2021 16:25 EDT [facility] Final Diagnosis A. CYST FLUID, LEFT OVARY, CYTOLOGIC EVALUATION: - Degenerated cellular debris present - Rare intact macrophages present, consistent with cyst contents. 08/19/2021 16:25 [facility] Attestation By the signature below, the attending physician certifies that they have personally conducted a gross and/or microscopic examination of the described specimens and rendered or confirmed the above diagnosis. 08/19/2021 16:25 EDT [facility] at 1625 Clinical History Left ovarian cyst 08/19/2021 16:25 EDT [facility] Gross Description A. 58cc's of clear yellow fluid were received and processed by selective cellular enhancement technique. 08/19/2021 16:25 [facility] Performing Lab [facility] 08/19/2021 16:25 [facility] Scanned Images 08/19/2021 16:25 [facility] Fluid BODY FLUID / Unknown 08/18/2021 9:30 EDT 08/19/2021 7:53 EDT Sarah Alanis PATHOLOGY ORDERABLES [facility] [address] [place] [address] documented in this encounter Visit Diagnoses Diagnosis Encounter for other general examination documented in this encounter Care Teams Head Loft Worker Relationship Specialty Start Date End Date Unknown, Provider, PCP - General 07/16/21 documented as of this encounter
--- OUTSIDE RECORDS SUMMARY | 2024-01-04 22:34 | XMS_ITS | Encounter Summary ---
Author Organization [facility] Address [address] [place] [address] Care Team Providers Care Market Development Specialist Name Role Phone Unknown, Provider Primary Care Provider Encounter Details Date Type Department Care Team (Late st Contact Info) Description 11/16/2021 Lab Requisition [facility] Pathology & Laboratory Medicine - [facility] [address] [place] [address] Outr Resulting Lab, Provider Social History Tobacco [...] Negative Negative 11/17/2021 10:48 EDT [facility] Hep C Antibody Negative Negative 11/17/2021 10:48 EDT [facility] Hepatitis A Antibody, IgM Negative Negative 11/17/2021 10:48 EDT [facility] Comment:The results of this assay can be falsely lowered due to the consumption of Biotin. Hepatitis B Core Ab, Total Negative Negative 11/17/2021 10:48 EDT [facility] Blood VENOUS BLOOD / Unknown 11/15/2021 22:18 EDT 11/16/2021 17:20 EDT Provider Outr Resulting Lab CHEMISTRY & BLOOD GAS ORDERABLES [facility] [address] [place] [address] documented in this encounter Visit Diagnoses Not on filedocumented in this encounter Care Teams Market Development Specialist Relationship Specialty Start Date End Date Unknown, Provider, PCP - General 07/16/21 documented as of this encounter
--- OUTSIDE RECORDS SUMMARY | 2024-01-04 22:34 | XMS_ITS | Encounter Summary ---
Author Organization [facility] Address [facility] [place] [address] Care Team Providers Care Estate Planning Paralegal Name Role Phone Jonathan Penaloza MD Primary Care Provider [phone] Encounter Details Date Type Department Care Team (Latest Contact Info) Description 06/21/2016 12:05 AM EST - 06/21/2016 11:59 PM EST Hospital Encounter Radiology Library at [facility] [place] [address] Dave Keys MD [facility] [place] [address] Pain Discharge Disposition: Home Social History Tobacco [...] CT Spine (06/21/2016 12:05 AM EST) Narrative [facility] - 06/22/2016 2:43 PM EST This exam is for storage only and is auto-finalizing. Dave Keys MD IMG FILM LIBRARY O RDERABLES [place], [place] documented in this encounter Visit Diagnoses Diagnosis Pain Generalized pain documented in this encounter Care Teams Estate Planning Paralegal Relationship Specialty Start Date End Date Jonathan Penaloza MD [address] [facility] [place] [address] PCP - General 03/09/10 documented as of this encounter
--- OUTSIDE RECORDS SUMMARY | 2024-01-04 22:34 | XMS_ITS | Encounter Summary ---
Author Organization [facility] Address [address] [place] [address] Care Team Providers Care Trumpet Player Name Role Phone Unavailable Primary Care Provider Unavailabl e Reason for Visit * Reason Onset Date Comments Appointment Related 05/21/2021 Encounter Details Date Type Department Care Team (Late st Contact Info) Description 05/21/2021 Telephone [facility] Dermatology 3rd [address] [address] Shayy Robert MD [address] [place] [address], [address] [place] [address] Appointment Related Social History Tobacco [...]
--- OUTSIDE RECORDS SUMMARY | 2024-01-04 22:34 | XMS_ITS | Encounter Summary ---
Author Organization [facility] Address [address] [place] [address] Care Team Providers Care Wash Tub Machine Operator Name Role Phone Unknown, Provider Primary Care Provider Encounter Details Date Type Department Care Team (Late st Contact Info) Description 12/08/2022 Lab Requisition [facility] Pathology & Laboratory Medicine - [facility] [address] [place] [address] Outr Resulting Lab, Provider Social History Tobacco [...] Neg and Giardia Antigen Neg 11:04 EDT [facility] Feces SPECIMEN FROM RECTUM / Unknown 12/07/2022 15:46 EDT 12/08/2022 17:35 EDT Provider Outr Resulting Lab MICROBIOLOGY - GENERAL ORDERABLES [facility] [address] [place] [address] * FECAL BACTERIAL PATHOGENS BY PCR (12/07/2022 15:46 EDT) Salmonella PCR Negative Negative 12/09/2022 0:32 EDT [facility] Shigella/Enteroin vasive E. coli Negative Negative 12/09/2022 0:32 EDT [facility] HN LAB CAMPYLOBACTER PCR Negative Negative 12/09/2022 0:32 EDT [facility] Shiga Toxin PCR Negative Negative 0:32 EDT [facility] Feces SPECIMEN FROM RECTUM / Unknown 12/07/2022 15:46 EDT 12/08/2022 17:35 EDT Provider Outr Resulting Lab MICROBIOLOGY - GENERAL ORDERABLES Performing Organization Address [facility]/ZIP Co de Phone Number [facility] [address] [place] [address] * OVA/PARASITE EXAM (12/07/2022 15:46 EDT) Parasite No ova and parasites seen. 12/09/2022 13:48 EDT [facility] Feces SPECIMEN FROM RECTUM / Unknown 12/07/2022 15:46 EDT 12/08/2022 17:35 EDT Narrative [facility] - 12/09/2022 13:48 EDT (If Cryptosporidium, Cyclospora, or Microsporidium are suspected, specific tests must be requested.) Single negative specimen does not rule out the possibility of a parasitic infection. Provider Outr Resulting Lab MICROBIOLOGY - GENERAL ORDERABLES Performing Organization Address City/[facility]/ZIP Co de Phone Number [facility] [address] [place] [address] documented in this encounter Visit Diagnoses Not on filedocumented in this encounter Care Teams Wash Tub Machine Operator Relationship Specialty Start Date End Date Unknown, Provider, PCP - General 07/16/21 documented as of this encounter
--- OUTSIDE RECORDS SUMMARY | 2024-01-04 22:34 | XMS_ITS | Encounter Summary ---
Author Organization [facility] Address [address] [place] [address] Care Team Providers Care Crusher Screen Repairer Name Role Phone Unknown, Provider Primary Care Provider Encounter Details Date Type Department Care Team (Late st Contact Info) Description 12/27/2019 Lab Requisition [facility] Pathology & Laboratory Medicine - [facility] [address] [place] [address] Outr Resulting Lab, Provider Social History Tobacco [...] rt-PCR Result NEGATIVE Negative 12/28/2019 15:36 EDT [facility] Comment: 2019-novel Coronavirus (2019-nCoV) [...] in accordance with CLIA regulations, [employer] [place] (CAP) guidelines (Jul 04, 2019), and FDA guidance (Jun 15, 2019). This test is only for use under the Food and Drug Administration's Emergency Use Authorization. Swab ENTIRE NASOPHARYNX / Unknown 12/27/2019 11:11 EDT 12/27/2019 16:12 EDT Provider Outr Resulting Lab MICROBIOLOGY - GENERAL ORDERABLES [place] * COVID-19 TESTING (12/27/2019 11:11 EDT) [facility] COVID-19 rt-PCR Result NEGATIVE Negative 12/28/2019 18:09 EDT [facility] Comment: 2019-novel Coronavirus (2019-nCoV) [...] in accordance with CLIA regulations, [employer] [place] (CAP) guidelines (Jul 04, 2019), and FDA guidance (Jun 15, 2019). This test is only for use under the Food and Drug Administration's Emergency Use Authorization. Performing Lab [facility] 12/28/2019 18:09 EDT [facility] Swab 12/27/2019 11:1 1 EDT 12/27/2019 16:12 EDT Provider Outr Resulting Lab MICROBIOLOGY - GENERAL ORDERABLES [facility] [address] [place] [address] [facility] [employer] documented in this encounter Visit Diagnoses Not on filedocumented in this encounter Additional Health Concerns Infection Onset Date Last Indicated Resolved Time COVID-19 04/21/2021 04/21/2021 05/11/2021 22:1 5 EST documented as of this encounter Care Teams Crusher Screen Repairer Relationship Specialty Start Date End Date Unknown, Provider, PCP - General 07/16/21 documented as of this encounter
--- OUTSIDE RECORDS SUMMARY | 2024-01-04 22:34 | XMS_ITS | Encounter Summary ---
Author Organization [facility] Address [address] [place] [address] Care Team Providers Care Beauty Shop Manager Name Role Phone Unavailable Primary Care Provider Unavailabl e Encounter Details Date Type Department Care Team (Late st Contact Info) Description 06/22/2020 Results Only [facility] [address] [place] [id number] Lynn Dahl MD [address] [place] [address] Social History Tobacco Use Types [...] 136 - 145 mEq/L 06/22/2020 7:02 EST [facility] Potassium 3.5 3.5 - 5.1 mEq/L 06/22/2020 7:02 [facility] Chloride 104 96 - 107 mEq/L 06/22/2020 7:02 [facility] CO2 Total 27.9 21 - 32 mEq/L 06/22/2020 7:02 [facility] Anion Gap 10.1 mEq/L 06/22/2020 7:02 [facility] BUN 16 7 - 25 mg/dl 06/22/2020 7:02 [facility] Creatinine 0.86 0.55 - 1.02 mg/dl 06/22/2020 7:02 [facility] Estimated GFR >60 >60 06/22/2020 7:02 [facility] Comment: EGFR UNITS: mL/min/1.73 m 2 CKD-EPI Equation used to calculate. Glucose 87 70 - 180 mg/dl 06/22/2020 7:02 [facility] Calcium 8.7 8.5 - 10.1 mg/dl 06/22/2020 7:02 [facility] 06/22/2020 6:30 EST 06/22/2020 6:43 EST Lynn Dahl MD CHEMISTRY & BLOOD G ORDERABLES [facility] [address] [place] [address] * COMPLETE BLOOD COUNT AND DIFFERENTIAL (06/22/2020 6:30 EST) WBC 9.5 4.0 - 10.5 10 3/uL 06/22/2020 6:59 [facility] RBC 5.07 4.20 - 5.40 10 6/uL 06/22/2020 6:59 [facility] Hemoglobin 14.6 12.5 - 16.0 g/dL 06/22/2020 6:59 [facility] HCT 43.9 37.0 - 47.0 % 06/22/2020 6:59 [facility] MCV 86.6 78 - 100 fL 06/22/2020 6:59 [facility] MCH 28.8 27 - 31 pg 06/22/2020 6:59 [facility] MCHC 33.3 32 - 37 g/dL 06/22/2020 6:59 [facility] RDW-CV - PMC 11.9 <14.7 % 06/22/2020 6:59 [facility] PLATELET COUNT - PMC 372 150 - 450 10 3/uL 06/22/2020 6:59 [facility] MPV 10.0 9.2 - 12.0 fL 06/22/2020 6:59 [facility] NEUTROPHILS % (AUTO) - PMC 55.8 42.0 - 75.0 % 06/22/2020 6:59 [facility] LYMPHOCYTES % (AUTO) - PMC 33.2 16.0 - 52.0 % 06/22/2020 6:59 [facility] MONOCYTES % (AUTO) - PMC 8.8 1.0 - 11.0 % 06/22/2020 6:59 [facility] EOSINOPHILS % (AUTO) - PMC 1.5 0.0 - 7.0 % 06/22/2020 6:59 [facility] BASOPHILS % (AUTO) - PMC 0.5 0.0 - 4.0 % 06/22/2020 6:59 [facility] Immature Granulocyte % (Auto) 0.2 % 06/22/2020 6:59 [facility] NUCLEATED RBC % (AUTO) - PMC 0.0 <1 % 06/22/2020 6:59 [facility] NEUTROPHILS # (AUTO) - PMC 5.3 1.5 - 6.6 10 3/uL 06/22/2020 6:59 [facility] LYMPHOCYTES # (AUTO) - PMC 3.2 1.0 - 3.5 10 3/uL 06/22/2020 6:59 [facility] MONOCYTES # (AUTO) - PMC 0.8 <1.0 10 3/uL 06/22/2020 6:59 [facility] EOSINOPHILS # (AUTO) - PMC 0.1 <0.7 10 3/uL 06/22/2020 6:59 [facility] BASOPHILS # (AUTO) - PMC 0.1 <0.1 10 3/uL 06/22/2020 6:59 [facility] Absolute Immature Granulocyte 0.02 <0.06 10 3/uL 06/22/2020 6:59 [facility] NUCLEATED RBC # (AUTO) - PMC 0.00 <1 10 3/uL 06/22/2020 6:59 [facility] 06/22/2020 6:30 EST 06/22/2020 6:42 EST Lynn Dahl MD PACKAGES & DNA PROB E ORDERABLES Performing Organization Address [facility] Co de Phone Number [facility] [address] [place] [address] * TEST, URINE (06/22/2020 6:30 EST) Test, Urine Negative Negative 06/22/2020 6:57 [facility] 06/22/2020 6:30 EST 06/22/2020 6:41 EST Narrative [facility] - 06/22/2020 6:57 EST Collection Method Unknown Lynn Dahl MD URINALYSIS ORDERABL ES Performing Organization Address [facility] Co de Phone Number [facility] [address] [place] [address] * UA (CULTURE IF POSITIVE) - PMC (06/22/2020 6:30 EST) URINE COLOR - PMC Yellow Straw/Yelow 06/22/2020 6:53 [facility] URINE APPEARANCE - PMC Clear Clr/Hazy 06/22/2020 6:53 [facility] URINE PH - PMC 6.0 4.6 - 8.0 06/22/2020 6:53 [facility] UR SPECIFIC GRAVITY (REFRACTOM) - PMC 1.028 1.001 - 1.035 06/22/2020 6:55 [facility] URINE PROTEIN - PMC Negative Negative mg/dL 06/22/2020 6:53 [facility] URINE GLUCOSE (UA) - PMC Negative Negative mg/dL 06/22/2020 6:53 [facility] URINE KETONES - PMC Negative Negative mg/dL 06/22/2020 6:53 [facility] URINE BILIRUBIN - PMC Negative Negative 06/22/2020 6:53 [facility] URINE BLOOD - PMC Negative Negative 06/22/2020 6:53 [facility] URINE UROBILINOGEN - PMC 0.2 0.2 - 1.0 E.U./dL 06/22/2020 6:53 [facility] URINE NITRATE - PMC Negative Negative 06/22/2020 6:53 [facility] URINE LEUKOCYTE ESTERASE - PMC Negative Negative 06/22/2020 6:53 [facility] URINE CULTURE COMMENTS - PMC CRITERIA NOT MET 06/22/2020 6:56 [facility] Comment:Specimen does not me et criteria for culture. [employer] - PMC UR Microscopic N/A 06/22/2020 6:56 [facility] Comment:Microscopic exam is not indicated. 06/22/2020 6:30 EST 06/22/2020 6:41 EST [facility] - 06/22/2020 6:57 EST Collection Method Unknown Lynn Dahl MD MICROBIOLOGY - [facility] ORDERABLES [facility] [address] [place] [address] documented in this encounter Visit Diagnoses Not on filedocumented in this encounter
--- OUTSIDE RECORDS SUMMARY | 2024-01-04 22:34 | XMS_ITS | Encounter Summary ---
Author Organization [facility] Address [address] [place] [address] Care Team Providers Care Electronic Scale Assembler And Tester Name Role Phone Unknown, Provider Primary Care Provider Encounter Details Date Type Department Care Team (Late st Contact Info) Description 03/29/2023 Lab Requisition [facility] Pathology & Laboratory Medicine - [facility] [address] [place] [address] Outr Resulting Lab, Provider Social History Tobacco [...] gonorrhoeae Result Negative Negative 03/30/2023 12:36 EST [facility] Chlamydia trachomatis Result Negative Negative 03/30/2023 12:36 EST [facility] Urine URINE / Unknown 03/29/2023 9 :30 EST 03/29/2023 17:29 EST Narrative [facility] - 03/30/2023 12:36 EST A first catch urine specimen is acceptable for detection of Gonorrhea and Chlamydia, but might detect up to 10% fewer infections when compared with vaginal and endocervical swab samples. Provider Outr Resulting Lab MICROBIOLOGY - GENERAL ORDERABLES [facility] [address] [place] [address] documented in this encounter Visit Diagnoses Not on filedocumented in this encounter Care Teams Electronic Scale Assembler And Tester Relationship Specialty Start Date End Date Unknown, Provider, PCP - General 07/16/21 documented as of this encounter
--- OUTSIDE RECORDS SUMMARY | 2024-01-04 22:34 | XMS_ITS | Continuity of Care Document ---
Author Organization [facility] Address [address] [place] [address] Assessment No assessment recorded. Plan of Treatment Reminders Order Date Submit Date Provider Last Modified By Organization Details Last Modified Time Details Appointments None recorded. Lab TSH, serum, reflex free T4 - drawn in office. 1 tiger and 1 lavender top tube 2023 024 [facility] (Registration ), [address] [place] [address] [place], [address], 4 11:57:37 iron + TIBC + ferritin, serum 2023 024 [facility] (Registration ), [address] [place] [address] [place], [address], 4 11:57:22 CBC 2023 024 [facility] (Registration ), [address] [place] [address] [place], [address], 4 21:13:05 CMP, serum or plasma 2023 024 [facility] (Registration ), [address] [place] [address] [place], [address], 4 21:43:11 Referral sleep medicine referral - please provider an update on this referral - URGENT PLEASE [address] [facility], [address] [place] [address] , [facility], [place], [address], 4 15:11:46 Procedures None recorded. Surgeries None recorded. Imaging None recorded. Medication Orders None recorded. Patient TargetsNo targets recorded. Patient InstructionsNo instructions recorded. Reason for Referral Sleep Medicine Referral for Disturbance in sleep behavior please provider an update on this referral - URGENT PLEASE Referring Physician: Stanley Sylvester, Family Medicine, Encounter Date: 11/03/2023 Results Created Date Observation Date Name Description Value Unit Range Abnormal Flag Note LastModifiedBy Organization Detail LastModifiedTime 12/15/19 24 12/15/2023 x-ray imagi ng chey t Patien t Name: Efrain Browning Unit #: [id number] Loc: ER Orderi nabeel Fredi er: Dorene Lucas M.D. Accoun t #: [id number] Status : PRE ER Primar y Care Provid er: Stanley Sylvester Date of Exam: Sex: F Admiss [...] Zamorano M.D. 1111 1111 Transc ribed By: Ebony Zamorano MD 1111 This is privil eged, confid ential inform ation intend ed only for the provid er named. Any use or distri bution by any person other than this provid er is strict ly prohib ited. If you receiv e this report in error, please notify us immedi angelly at and return the origin al report to us at the addres s above. Thank- you. [facility] [address] [place], [address] 12/15/2023 11:36:06 Result Notes None recorded. Problems Name Problem SNOMED Code Status Onset Date Resolution Date Notes Provider Name and Address Organization Details Recorded Time COVID-19 597721477 Completed 202108/03/2023 Problem Code: U07.1; Problem Code Type: ICD-10; [facility] 4 20:11:32 Acute pharyngi tis 025264827 Completed 202208/05/2022 Problem Code: J02.9; Problem Code Type: ICD-10; Not Available [facility] 3 05:46:05 Upper respirat ory tract infectio n caused by Influenz a virus 04063684024 105527 Completed 202208/03/2023 Problem Code: J11.1; Problem Code Type: ICD-10; [facility] 4 20:12:23 Bunion 976669284 Active 2017 [facility] 4 20:11:12 Contrace ption care manageme nt Active 2022 [facility] 4 20:11:30 Acquired hallux valgus 55762282 Active 2022 s/p alyssa osteotom y 0 [facility] 4 20:11:05 Irregula r periods 59765011 Active 2014 [facility] 4 20:11:50 Left lower quadrant pain 770425596 Active 2022 [facility] 4 20:11:55 Excessiv e and frequent menstrua tion 045078638 Active 2022 [facility] 4 20:11:40 Chronic sinusiti s 51966051 Active 2022 [facility] 4 20:11:20 Major depressi on, single episode 87656492 Active 2022 [facility] 4 20:12:07 Contact dermatit is caused by plants Active 2022 [facility] 4 20:11:26 Nicotine dependen ce 05512805 Active 2022 [facility] 4 20:12:17 Diarrhea 83293529 Completed 202201/07/2023 Problem Code: R19.7; Problem Code Type: ICD-10; Not Available [facility] 3 05:46:07 Exposure to communic able disease Completed 202101/11/2023 Problem Code: Z20.828; Problem Code Type: ICD-10; Not Available [facility] 3 05:46:07 Upper respirat ory infectio n 04822543 Completed 202308/03/2023 [facility] 4 20:12:21 Abrasion of right cornea 16880254241 791533 Active [address], [place], [address] , [facility] 4 16:41:37 Disturba nce in sleep behavior 24591992 Active 2023 ARCELIA SCHMID [address], [place], [address] , [facility] 4 12:05:41 Problem Notes None recorded. Medical Equipment None Reported. Allergies Allergen ID Allergen Name Allergen Category Reaction Reaction Severity Criticality Documentation Date Start Date Code Code System Note Provider Name and Address Organization Details Recorded Time 90788 red dye food,medi cation rash Not available low 05/31/2023 KELSEY Smith [facility] 4 09:57:22 61061 morphine medicatio n Not available Not available Not available 05/31/2023 7052 [facility] 4 09:57:30 Medications Name Sig [...] Updated DateTime 4 160.02 cm 23.6 kg/m2 46127.7 9 g 97.3 [degF] 98 % 98 % 84 /min 114 mm[Hg] 70 mm[Hg] JOSIE CABRERA MA [facility] 4 11:41:48 Social History Question Answer Notes LastModified by Organizat ion Details LastModified Time Tobacco Smoking Status Current Every Day Smoker Pretty Anne MA null, [facility] 05/31/2023 09:57:47 Do You Or Have You [...] LastModified Time Mother Family history of Depression [email or web address] Not available 02/24 03:50:08 Unspecified Relation Family history of Depression [place] Not available 02/24/2023 03:50:08 Unspecified Relation Family history of Anxiety state [place] Not available 02/24/2023 03:50:09 Unspecified Relation Family history of asthma [place] Not available 02/24/2023 03:50:10 Medical History No medical history recorded. Gynecological HistoryNo gynecological history recorded. Obstetrics History GPAL:G 0 P 0 0 0 0 Immunizations Vaccine Type Date Status Provider Name and Address Organization Details Recorded Time MMR 07/25/2005 completed Not Available [facility] 05:11:43 MMR 10/07/2008 completed Not Available [facility] 05:11:44 DTaP, unspecified formulation 05/20/2005 completed Not Available [facility] 02/24/2023 05:11:44 DTaP, unspecified formulation 07/17/2003 completed Not Available [facility] 02/24/2023 05:11:45 DTaP, unspecified formulation 10/07/2008 completed Not Available [facility] 02/24/2023 05:11:45 DTaP, unspecified formulation 12/08/2006 completed Not Available [facility] 02/24/2023 05:11:45 DTaP, unspecified formulation 02/19/2003 completed Not Available [facility] 02/24/2023 05:11:45 meningococcal ACWY, unspecified formulation 11/05/2014 completed Not Available [facility] 02/24/2023 05:11:46 pneumococcal, unspecified formulation 08/08/2005 completed Not Available [facility] 02/24/2023 05:11:46 pneumococcal, unspecified formulation 03/18/2003 completed Not Available [facility] 02/24/2023 05:11:46 Tdap 11/05/2014 completed Not Available [facility] 05:11:46 Pneumococcal conjugate PCV 13 08/08/2005 completed Not Available [facility] 02/24/2023 05:11:46 Pneumococcal conjugate PCV 13 03/18/2003 completed Not Available [facility] 02/24/2023 05:11:47 HPV, unspecified formulation 05/08/2014 completed Not Available [facility] 02/24/2023 05:11:47 HPV, unspecified formulation 07/19/2013 completed Not Available [facility] 02/24/2023 05:11:47 HPV, unspecified formulation 09/20/2013 completed Not Available [facility] 02/24/2023 05:11:47 Hib, unspecified formulation 09/05/2005 completed Not Available [facility] 02/24/2023 05:11:48 Hib, unspecified formulation 02/19/2003 completed Not Available [facility] 02/24/2023 05:11:48 varicella 10/07/2008 completed Not Available [facility] 05:11:48 varicella 03/04/2005 completed Not Available [facility] 05:11:49 Hep B, unspecified formulation 04/22/2003 completed Not Available [facility] 02/24/2023 05:11:49 Hep B, unspecified formulation 2002 completed Not Available [facility] 02/24/2023 05:11:49 Hep B, unspecified formulation 2002 completed Not Available [facility] 02/24/2023 05:11:49 influenza, unspecified formulation 05/16/2008 completed Not Available [facility] 02/24/2023 05:11:50 influenza, unspecified formulation 07/07/2005 completed Not Available [facility] 02/24/2023 05:11:50 influenza, unspecified formulation 07/08/2021 completed Not Available [facility] 02/24/2023 05:11:50 influenza, unspecified formulation 02/08/2019 completed Not Available [facility] 02/24/2023 05:11:50 influenza, unspecified formulation 02/23/2007 completed Not Available [facility] 02/24/2023 05:11:50 polio, unspecified formulation 04/22/2003 completed Not Available [facility] 02/24/2023 05:11:51 polio, unspecified formulation 07/17/2003 completed Not Available [facility] 02/24/2023 05:11:51 polio, unspecified formulation 09/05/2005 completed Not Available [facility] 02/24/2023 05:11:51 polio, unspecified formulation 01/11/2007 completed Not Available [facility] 02/24/2023 05:11:51 Past Encounters Encounter ID Performer Location Encounter Start Date Encounter Closed Date Diagnosis/Indication Diagnosis SNOMED-CT Code Diagnosis ICD10 Code [id number] [address] [address] 11/03/2023 11:31:33 11/03/2023 12:32:08 Disturbance in sleep behavior 26709083 G47.9 Health Concerns Section Related Observation LastModified by Organization Detai ls LastModified Time None Recorded Concern Status LastModified by Organization Details LastModified Time None Recorded Payers Encounter Date Sequence Insurance Name Policy Number Policy Le Covered Member ID Le Member ID Guarantor Name 11/03/2023 1 [facility] (MEDICAID) Cathy Browning [id number] Cathy Browning Notes Date Note Type Note Provider Name and Address Organization Details Recorded Time 11/03/2023 text/html HPI Notes: Cathy would like [...] any change in symptoms around her menses. STANLEY SYLVESTER, ARCELIA [address], [place], [address], [facility]. 11/04/2023 09:36:45 OBGyn Episode No OBEpisode recorded.
--- OUTSIDE RECORDS SUMMARY | 2024-01-04 22:34 | XMS_ITS | Encounter Summary ---
Author Organization [facility] Address [address] [place] [address] Care Team Providers Care Document Coordinator Name Role Phone Unknown, Provider Primary Care Provider Encounter Details Date Type Department Care Team (Late st Contact Info) Description 04/22/2021 Lab Requisition [facility] Pathology & Laboratory Medicine - [facility] [address] [place] [address] Outr Resulting Lab, Provider Social History Tobacco [...] Outr Resulting Lab MICROBIOLOGY - GENERAL ORDERABLES [facility] [address] [place] [address] * (ABNORMAL) COVID-19 TESTING (04/21/2021 16:27 EST) COVID-19 rt-PCR Result Positive( AA) Negative 04/23/2021 16:23 EST [facility] Comment: This test has [...] developed and its performance characteristics determined by [facility]. It has not been cleared or [...] testing. This test is based on the [facility] COVID-19 Emergency Use Authorization (EUA) assay, with minor modification as defined by the FDA Performed on the [employer] 7 Flex RT-PCR System. Performing Lab [facility] 04/23/2021 16:23 EST [facility] Swab 04/21/2021 16:2 7 EST 04/22/2021 17:45 EST Provider Outr Resulting Lab MICROBIOLOGY - GENERAL ORDERABLES [facility] [address] [place] [address] documented in this encounter Visit Diagnoses Not on filedocumented in this encounter Additional Health Concerns Infection Onset Date Last Indicated Resolved Time COVID-19 04/21/2021 04/21/2021 05/11/2021 22:1 5 EST documented as of this encounter Care Teams Document Coordinator Relationship Specialty Start Date End Date Unknown, Provider, PCP - General 07/16/21 documented as of this encounter
--- OUTSIDE RECORDS SUMMARY | 2024-01-04 22:34 | XMS_ITS | Clinical Summary ---
Author Organization [facility] [place] [address] Care Team Providers Care Knowledge Analyst Name Role Phone Jonathan Penaloza MD Primary Care Provider [phone] Social History Tobacco Use Types Packs/Day Years [...] 2021 Tdap adult 2021 Tetanus vaccine 2021 PAP Smear 2023 Covid-19 Vaccine ( - 2022-24 season) 2023 Influenza (Flu) vaccine (1 o f 1 - Influenza standard series) 12/17/2023 Care Teams Knowledge Analyst Relationship Specialty Start Date End Date Jonathan Penaloza MD [address] [facility] [place] [address] PCP - General 03/09/10
--- OUTSIDE RECORDS SUMMARY | 2024-01-04 22:34 | XMS_ITS | Encounter Summary ---
Author Organization [facility] Address [address] [place] [address] Care Team Providers Care Crane Mechanic Name Role Phone Unavailable Primary Care Provider Unavailabl e Encounter Details Date Type Department Care Team (Late st Contact Info) Description 06/22/2020 Results Only [facility] [address] [place] [id number] Silvino Apple MD [address] [place] [address] Social History Tobacco Use Types [...] UVC Result Negative Negative 06/22/2020 20:38 EST [facility] Comment: This test has [...] history, and epidemiological information. Performed on the ev3, Incher Fusion instrument Reference Lab Test Performing Site [place] [facility] 06/22/2020 20:38 EST [facility] Comment: Please select one of these categories:: NONE Please indicate the Triage Tier2 Test performed [place] [address] 06/22/2020 7:45 EST 06/22/2020 7:48 EST Narrative [facility] - 06/22/2020 20:38 EST 2 None of the Above Silvino Apple MD MICROBIOLOGY - GENE [facility] ORDERABLES [facility] [address] [place] [address] documented in this encounter Visit Diagnoses Not on filedocumented in this encounter
--- OUTSIDE RECORDS SUMMARY | 2024-01-04 22:34 | XMS_ITS | Referral Summary ---
Author Organization [facility] Address [address] [place] [address] Care Team Providers Care Experimental Plastics Fabricator Name Role Phone Unknown, Provider Primary Care [...] C Antibody Negative Negative 03/24/2020 10:57 EST [facility] Blood VENOUS BLOOD / Unknown 03/23/2020 10:07 EST 03/23/2020 15:45 EST Provider Outr Resulting Lab CHEMISTRY & BLOOD GAS ORDERABLES [facility] [address] [place] [address] from Last 3 Months or Most Recently Relevant to Health Maintenance Care Teams Experimental Plastics Fabricator Relationship Specialty Start Date End Date Unknown, Provider, PCP - General 07/16/21
--- OUTSIDE RECORDS SUMMARY | 2024-01-04 22:34 | XMS_ITS | Encounter Summary ---
Author Organization [facility] Address [address] [place] [address] Care Team Providers Care Windows Support Engineer Name Role Phone Unknown, Provider Primary Care Provider [phone] Encounter Details Date Type Department Care Team (Late st Contact Info) Description 03/23/2020 Lab Requisition [facility] Pathology & Laboratory Medicine - [facility] [address] [place] [address] Outr Resulting Lab, Provider Social History Tobacco [...] C Antibody Negative Negative 03/24/2020 10:57 EST [facility] Blood VENOUS BLOOD / Unknown 03/23/2020 10:07 EST 03/23/2020 15:45 EST Provider Outr Resulting Lab CHEMISTRY & BLOOD GAS ORDERABLES [facility] [address] [place] [address] documented in this encounter Visit Diagnoses Not on filedocumented in this encounter Additional Health Concerns Infection Onset Date Last Indicated Resolved Time COVID-19 04/21/2021 04/21/2021 05/11/2021 22:1 5 EST documented as of this encounter Care Teams Windows Support Engineer Relationship Specialty Start Date End Date Unknown, Provider, PCP - General 07/16/21 documented as of this encounter
[2024-01-04] MEDS: Ondansetron O.D.T. 4 MG TABEF, 3 TABS/BTL PO (22:37)
== END 2024-01-04 22:38 | disposition home or self-care (01) ==
PROVIDERS: Emergency Provider Student in an Organized Health Care Education/Training Program; PCP Nurse Practitioner Family
DX: S06.0X0A Concussion without loss of consciousness, initial encounter (principal); F10.120 Alcohol abuse with intoxication, uncomplicated; F17.290 Nicotine dependence, other tobacco product, uncomplicated; W03.XXXA Other fall on same level due to collision with another person, initial encounter; Y93.01 Activity, walking, marching and hiking; Y92.79 Other farm location as the place of occurrence of the external cause
CPT/HCPCS: 99283

== ENCOUNTER 2024-05-24 09:13 | Outpatient (REF) | payer MEDICAID, SELFPAY ==
--- NOTE | 2024-05-24 09:08 | PAPFT_PTH ---
PATIENT: Cathy Browning LOC: [facility] U#:[id number] AGE/SX: 23/F ROOM: RE05/24/[address]: Jaelyn Kennedy MD : 2000 BED: DIS: 05/24/2024 SPEC #: [id number] RECD: 05/24/24 13:18 STATUS: KALYAN REJazmine #: [id number] ETHEL: 05/24/24 09:[address]: Jaelyn Kennedy DEPT: [facility] Cytology RECD BY: Telma Borges ENTERED: 05/24/24 13:18 SP TYPE: PAPFT OTHR DR: Joyce Sylvester Tissues: 1 - CX/ENDOCX FOR PAP SMEARS Procedures: PAP THIN PREP/[facility] Screening Comments: [id number] (CHLAMYDIA/GC)
[2024-05-27 12:06] LABS: Chlamydia Result Negative (Negative); GC Result Negative (Negative)
== END 2024-05-24 09:14 | disposition home or self-care (01) ==
LOC: LBN 09:13
PROVIDERS: PCP Nurse Practitioner Family; Visit Provider Obstetrics & Gynecology
DX: R10.32 Left lower quadrant pain (principal); Z12.4 Encounter for screening for malignant neoplasm of cervix; Z11.3 Encounter for screening for infections with a predominantly sexual mode of transmission; N76.0 Acute vaginitis
CPT/HCPCS: 87491; 87591; 88142; 87480; 87510; 87660

== ENCOUNTER 2024-06-07 00:20 | Outpatient (CLI) | payer MEDICAID, SELFPAY ==
--- NOTE | 2024-06-07 07:00 | DI.US_ITS ---
Exam(s) US PELVIS TRANSVAGINAL EXAM: US PELVIS TRANSVAGINAL CLINICAL HISTORY: LLQ pain,R10.32. TECHNIQUE: Transabdominal and transvaginal pelvic ultrasound was performed using standard protocol. COMPARISON: US US PELVIS from 07/23/2021 FINDINGS: UTERUS: Position: Anteverted. Size: 7.1 long by 3.3 AP by 4.1 transverse cm Endometrium: 0.5 cm. Normal for patient's menstrual status. Myometrium: Unremarkable. Cervix: Unremarkable. OVARIES: Right: 2.5 x 1.6 x 1.8 cm Cyst or mass: No suspicious cystic or solid masses. Left: 3.7 x 1.5 x 1.2 cm Cyst or mass: No suspicious cystic or solid masses. DOPPLER: Color: Symmetric and uniform flow to both ovaries. CUL-DE-SAC: Free fluid: None. Other: None. IMPRESSION: 1. Normal-appearing uterus with endometrial stripe within normal limits. 2. Unremarkable bilateral ovaries. DATA REPOSITORY:
== END 2024-06-07 00:40 ==
LOC: DI 00:20
PROVIDERS: PCP Nurse Practitioner Family; Visit Provider Obstetrics & Gynecology
DX: R10.32 Left lower quadrant pain (principal)
CPT/HCPCS: 76830; 76856

== ENCOUNTER 2024-07-12 15:28 | Outpatient (REF) | payer MEDICAID, SELFPAY | END 2024-07-12 15:29 | disposition home or self-care (01) | LOC: NCHCN 15:28 | PROVIDERS: PCP Nurse Practitioner Family; Visit Provider Nurse Practitioner Family | DX: N89.8 Other specified noninflammatory disorders of vagina (principal) | CPT/HCPCS: 87480; 87510; 87660 ==